=== PATIENT | female | born 1950 | race Caucasian/White ===

== ENCOUNTER 2019-10-14 08:33 | Outpatient (CLI) | payer OTHER, SELFPAY ==
--- NOTE | ~2019-10-14 | US_ITS ---
US abdomen complete DATE: 10/14/2019 09:50 INDICATION: Thrombocytopenia TECHNIQUE: Real-time imaging of the abdomen, Doppler analysis COMPARISON: None FINDINGS: No hepatic space-occupying mass lesion is evident. Normal hepatopedal portal venous flow. N o gallstones, gallbladder wall thickening or abnormal pericholecystic fluid collection. The common bile duct measures 2.7 mm, normal. The kidneys measure approximately 10 cm length. No renal mass lesion or hydronephrosis. The spleen measures approximately 10 cm maximal length, within normal range. No splenic mass lesion i s evident. The abdominal aorta is of normal caliber. The inferior vena cava is patent. IMPRESSION: No significant abnormality; no evidence of splenomegaly Reviewed, dictated and finalized at Location [facility]. Reviewed, dictated and finalized at location B.
== END 2019-10-14 08:34 | disposition home or self-care (01) ==
PROVIDERS: PCP Internal Medicine; Visit Provider Internal Medicine Hematology & Oncology
DX: D69.59 Other secondary thrombocytopenia (principal)
CPT/HCPCS: 76700

== ENCOUNTER 2019-10-14 09:55 | Outpatient (CLI) | payer OTHER, SELFPAY ==
[2019-10-14 10:15] LABS: Basophils Absolute Auto 0.1 K/mm3 (0.0-0.1); Basophils Percent Auto 0.8 % (0.2-1.2); Eosinophils Absolute Auto 0.2 K/mm3 (0-0.3); Eosinophils Percent Auto 2.9 % (0-4.4); Hematocrit 37.7 % (37.0-47.0); Hemoglobin 12.2 g/dL (12.0-15.0); Immature Granulocyte Absolute 0.01 K/mm3 (0.00-0.031); Immature Granulocyte Percent A 0.2 % (0-0.5); Lymphocytes Absolute Auto 1.11 K/mm3 (0.9-3.2); Lymphocytes Percent Auto 17.8 % (18.3-44.2); Mean Corpuscular HGB Conc 32.4 g/dl (32-36); Mean Corpuscular Hemoglobin 29.8 pg (26-34); Mean Corpuscular Volume 92.2 fl (80-100); Monocytes Absolute Auto 0.5 K/mm3 (0.1-0.6); Neutrophils Absolute Auto 4.4 K/mm3 (1.3-6.7); Neutrophils Percent Auto 70.3 % (45.5-73.1); Red Blood Count 4.09 M/mm3 (4.2-5.4); White Blood Count 6.2 K/mm3 (4.5-10.0)
[2019-10-14 10:25] LABS: Platelet Count Result 178 k/mm3 (150-375)
[2019-10-14 11:17] LABS: Iron 93 ug/dL (37-170)
[2019-10-14 11:27] LABS: Percent Iron Saturation 29 % (20-50)
[2019-10-14 11:28] LABS: Alanine Aminotransferase 23 U/L (4-35); Albumin Level 4.3 g/dL (3.5-5.1); Alkaline Phosphatase 79 U/L (38-126); Aspartate Amino Transferase 28 U/L (14-36); Bilirubin,Total 0.5 mg/dL (0.2-1.3); Blood Urea Nitrogen 14 mg/dL (7-17); Calcium 9.1 mg/dL (8.4-10.2); Carbon Dioxide 27 mmol/L (22-30); Chloride 104 mmol/L (98-107); Estimated Glomerular Filt Rate > 60; Glucose 94 mg/dL (65-105); Lactate Dehydrogenase 484 U/L (313-618); Potassium 4.1 mmol/L (3.4-5.0); Sodium 140 mmol/L (137-145)
[2019-10-17 21:43] LABS: Platelet Antibody, Direct IgG POSITIVE (NEGATIVE)
== END 2019-10-14 09:56 | disposition home or self-care (01) ==
LOC: ANHLAB 09:57
PROVIDERS: PCP Internal Medicine; Visit Provider Internal Medicine Hematology & Oncology
DX: D69.59 Other secondary thrombocytopenia (principal)
CPT/HCPCS: 36415; 80053; 82607; 82728; 83540; 83550; 83615; 84443; 85025; 86023; 86038

== ENCOUNTER 2022-10-19 11:06 | Emergency (ER) | payer MEDICARE, SELFPAY ==
[2022-10-19 11:37] VITALS: BP 122/71; PULSE 81; RESP 20; TEMP 36.4; O2SAT 100
--- NOTE | 2022-10-19 11:49 | ED.URI ---
HPI - URI/Sore Throat General Chief Complaint: Upper Respiratory Infection Stated Complaint: cough,nasal drainage Time Seen by Provider: 10/19/22 11:49 Source: patient Mode of arrival: ambulatory Limitations: no limitations History of Present Illness HPI Narrative: Patient is a 71-year-old female that presents with 10 days of productive cough. States within the 10 days she has also had sore throat in congestion, both have since resolved. Patient is using 2 pillows to help with shortness of breath at night. Patient has been using [id number] medications with no relief. Denies any ear pain, fever, chills. Related Data Home Medications Medication Instructions Recorded Confirmed albuterol sulfate 90 mcg/actuation 2 puff inhalation QID PRN 10/19/22 10/19/22 aerosol inhaler Shortness Of Breath Allergies Allergy/AdvReac Type Severity Reaction Status Date / Time prochlorperazine Allergy Unknown Verified 10/19/22 11:39 [From Compazine] titanium Allergy Unknown Verified 10/19/22 11:45 All Acid Reflux Medications Allergy Severe Swelling Uncoded 10/19/22 11:38 Review of Systems Review of Systems: All systems reviewed & are unremarkable except as noted in HPI and below Constitutional: Constitutional: Denies body ache(s), Denies fever(s), Denies headache(s), Denies malaise and Denies weakness Eyes: Eyes: Denies loss of vision ENT: Denies otalgia, Denies headache(s), Denies nasal congestion, Denies sinus pain and Denies sore throat Cardiovascular: Cardiovascular: Denies chest pain, Denies irregular heart rhythm and Denies dyspnea Respiratory: Respiratory: Reports cough and Denies dyspnea Gastrointestinal: Gastrointestinal: Denies abdominal pain, Denies melena, Denies hematochezia, Denies diarrhea, Denies nausea and Denies vomiting Musculoskeletal: Musculoskeletal: Denies back pain, Denies myalgias and Denies arthralgias Integumentary/Breasts: Skin/Breast: Denies pruritus and Denies rash Neurologic: Denies headache(s), Denies loss of vision and Denies weakness Psychiatric: Psychiatric: Reports no additional psychiatric complaints PMFSH Comments At time of signature, agree with nursing past medical, surgical, social and family history. There is no relevant family history pertinent to the presenting complaint. Exam Const: General: cooperative, healthy appearing, comfortable, no acute distress and well nourished Nutritional Appearance: well nourished Orientation/consciousness: patient oriented x3 Limitations: no limitations HENMT: Head: normal to inspection, normocephalic and atraumatic Ears: hearing grossly normal bilaterally, external ears normal and TM's normal bilaterally Face/Nose/Sinus: Normal external nose present, normal facial exam, sinuses nontender and face symmetric Face and sinus: normal facial exam, sinuses nontender and face symmetric Mouth: Yes Normal oral and palatal mucosa present, Yes lip normal and Yes moist mucous membranes Teeth and gingiva: dentition normal Throat: posterior oropharynx normal, tonsils normal and uvula midline Eyes: General: appearance normal, both eyes and all related structures Alignment and Position: alignment normal and position normal Periorbital: periorbital findings normal Eyelids: eyelids normal Pupils: Equal, round and reactive pupils present Neck: Neck: normal visual inspection, full ROM and supple Chest: Chest palpation & inspection: normal inspection of the chest and normal palpation of entire chest wall Resp: Effort & Inspection: normal respiratory effort and able to speak in complete sentences Auscultation: clear to auscultation bilaterally, no crackles, no rales, no rhonchi and no wheezes Cardio: Rate: regular rate Rhythm: regular rhythm Heart sounds: S1 normal heart sound present and S2 normal heart sound present GI: Inspection: normal to inspection Skin: General skin exam: normal color and no rashes or lesions noted Neuro: General: patie
== END 2022-10-19 12:13 | disposition home or self-care (01) ==
PROVIDERS: Emergency Provider Nurse Practitioner Family; PCP Internal Medicine
DX: R05.9 Cough, unspecified (principal); J45.909 Unspecified asthma, uncomplicated
CPT/HCPCS: 99213; G0463

== ENCOUNTER 2024-05-02 19:04 | Emergency (ER) | payer MEDICARE, SELFPAY ==
[2024-05-02 19:07] VITALS: BP 147/75; PULSE 82; RESP 16; TEMP 36.5; O2SAT 97
[2024-05-02 20:22] VITALS: BP 133/68; PULSE 66; RESP 20; TEMP 36.6; O2SAT 97
--- NOTE | 2024-05-02 20:30 | ED.ANIMALBIT ---
HPI - Animal Bite General Chief Complaint: Animal Bite Stated Complaint: racoon bit L foot yesterday morning Time Seen by Provider: 05/02/24 19:48 History of Present Illness HPI narrative: Patient is a 73-year-old female who presents to the ER after being bit by a raccoon. She reports she likes to feed a stray cats from her backyard. Patient was sitting out who for them and 3 raccoon's came to her. She tried to issue the raccoons away and kicked her left lower extremity a them. One of the raccoon's was aggressive and bit patient in the left lower extremity. Patient has a baseball sized bruise on her left extremity with a noticeable puncture wound that has scabbed over in the middle of the bruise. She denies pain at this but endorses itching. Patient reports she went to urgent care and they put her on oral antibiotics, but they advised her to come to the ER for rabies vaccination. She denies any other pertinent medical history related to this visit. Patient denies shortness of breath, fevers, other signs of illness, chest pain. Related Data Home Medications Medication Instructions Recorded Confirmed albuterol sulfate 90 mcg/actuation 2 puff inhalation QID PRN 10/19/22 10/19/22 aerosol inhaler Shortness Of Breath Allergies Allergy/AdvReac Type Severity Reaction Status Date / Time prochlorperazine Allergy Unknown Verified 05/02/24 19:05 [From Compazine] titanium Allergy Unknown Verified 05/02/24 19:05 All Acid Reflux Medications Allergy Severe Swelling Uncoded 05/02/24 19:05 Review of Systems Review of Systems: All systems reviewed & are unremarkable except as noted in HPI and below Exam Narrative: GENERAL: Well appearing, well-nourished, non-toxic, in no acute distress. HEAD: Normocephalic, atraumatic. NECK: Supple. No adenopathy, no masses. RESPIRATORY: Airway patent, respirations nonlabored. Clear to auscultation bilaterally, no rales, rhonchi, wheezing. CARDIOVASCULAR: Regular rate and rhythm without murmurs, rubs, or gallops. Peripheral pulses 2+ and equal bilaterally. ABDOMINAL: Soft, nontender, nondistended, no hepatosplenomegaly. Normoactive BS. MUSCULOSKELETAL: Moves all extremities. Strength/ROM intact without gross deformities. SKIN: Warm, dry, normal color. No rashes. Patient has a baseball sized bruise on her left extremity with a noticeable puncture wound that has scabbed over in the middle of the bruise. NEURO: A&O X3. Speech clear. Cranial nerves II-XII grossly intact. Steady gait. No ataxic movements. PSYCHIATRIC: Appropriate mood and affect. Normal interaction. Course Vital Signs Vital signs: Vital Signs Temperature 36.5 C 05/02/24 19:07 Pulse Rate 82 05/02/24 19:07 Respiratory Rate 16 05/02/24 19:07 Blood Pressure 147/75 H 05/02/24 19:07 Pulse Oximetry 97 05/02/24 19:07 Oxygen Delivery Room Air 05/02/24 19:07 Temperature 36.6 C 05/02/24 20:22 Pulse Rate 66 05/02/24 20:22 Respiratory Rate 20 05/02/24 20:22 Blood Pressure 133/68 05/02/24 20:22 Pulse Oximetry 97 05/02/24 20:22 Oxygen Delivery Room Air 05/02/24 19:07 MDM - Animal Bite MDM Narrative Medical decision making narrative: Patient is a 73-year-old female who presents to the ER after being bit by a raccoon. She reports she likes to feed a stray cats from her backyard. Patient was sitting out who for them and 3 raccoon's came to her. She tried to issue the raccoons away and kicked her left lower extremity a them. One of the raccoon's was aggressive and bit patient in the left lower extremity. She denies pain at this but endorses itching. Patient reports she went to urgent care and they put her on oral antibiotics, but they advised her to come to the ER for rabies vaccination. She denies any other pertinent medical history related to this visit. Patient denies shortness of breath, fevers, other signs of illness, chest pain. Upon physical examination, patient rabia
[2024-05-02] MEDS: RABIES VACCINE (RABAVERT) 2.5 UNITS VIAL IM (21:17)
[2024-05-02] MEDS: RABIES IMMUNE GLOBULIN/PF 1,500 UNITS/5 ML VIAL 1360 UNITS IM (21:26)
== END 2024-05-02 22:38 | disposition home or self-care (01) ==
PROVIDERS: Emergency Provider Registered Nurse; PCP Internal Medicine
DX: S81.852A Open bite, left lower leg, initial encounter (principal); Z23 Encounter for immunization; Z20.3 Contact with and (suspected) exposure to rabies; W55.51XA Bitten by raccoon, initial encounter
CPT/HCPCS: 90471; 90675; 96372; 99283; 90375

== ENCOUNTER 2024-05-16 09:53 | Outpatient (RCR) | payer MEDICARE, SELFPAY ==
--- NOTE | 2024-05-09 10:40 | PC.NURSE ---
C/O ITCHING AT SITE OF INJECTION X 1 DAY AFTER LAST INJECTION. STATES HAS HAD FATIGUE. DENIES NAUSEA AND FEVER. LEG WOUND HEALING WITHOUT SIGNS OF INFECTION. SCAB. ECCHYMOSIS RESOLVING. TO RETURN 1 WEEK FROM TODAY AT 1000 FOR LAST INJECTION. VOICES UNDERSTANDING.
--- NOTE | 2024-05-16 10:21 | PC.NURSE ---
AMBULATORY TO DRAW STATION FOR 4TH RABIES VACCINE. STATES IS FEELING WELL. DENIES FATIGUE, NAUSEA AND BODY ACHES. SITE OF BITE LEFT LOWER LEG / ANKLE HEALING WITHOUT SIGNS OF INFECTION. BRUISING RESOLVING. DISCHARGED AMBULATORY WITH STEADY GAIT.
== END 2024-08-03 23:59 | disposition home or self-care (01) ==
LOC: ANHVASCINF 09:53
PROVIDERS: PCP Internal Medicine; Visit Provider Emergency Medicine
DX: Z29.14 Encounter for prophylactic rabies immune globulin (principal); Z20.3 Contact with and (suspected) exposure to rabies
CPT/HCPCS: 90471; 90675

== ENCOUNTER 2024-09-08 14:01 | Outpatient (CLI) | payer MEDICARE, SELFPAY ==
[2024-09-08 14:18] LABS: Basophils Absolute Auto 0.1 K/mm3 (0.0-0.1); Basophils Percent Auto 1.1 % (0.2-1.2); Eosinophils Absolute Auto 0.2 K/mm3 (0-0.3); Eosinophils Percent Auto 2.9 % (0-4.4); Hemoglobin 12.9 g/dL (12.0-15.0); Immature Granulocyte Absolute 0.03 K/mm3 (0.00-0.031); Immature Granulocyte Percent A 0.4 % (0-0.5); Lymphocytes Absolute Auto 1.59 K/mm3 (0.9-3.2); Lymphocytes Percent Auto 21.9 % (18.3-44.2); Mean Corpuscular HGB Conc 32.3 g/dl (32-36); Mean Corpuscular Hemoglobin 29.2 pg (26-34); Mean Corpuscular Volume 90.5 fl (80-100); Mean Platelet Volume 9.6 fl (7.4-10.4); Monocytes Absolute Auto 0.7 K/mm3 (0.1-0.6); Monocytes Percent Auto 9.2 % (2.6-8.5); Neutrophils Absolute Auto 4.7 K/mm3 (1.3-6.7); Neutrophils Percent Auto 64.5 % (45.5-73.1); Platelet Count Result 214 k/mm3 (150-375); Red Blood Count 4.42 M/mm3 (4.2-5.4); Red Cell Distribution Width 12.8 % (11.5-14.5); White Blood Count 7.3 K/mm3 (4.5-10.0)
[2024-09-08 15:18] LABS: Iron 101 ug/dL (37-170)
[2024-09-08 15:21] LABS: Alanine Aminotransferase 18 U/L (6-35); Albumin Level 4.5 g/dL (3.5-5.1); Alkaline Phosphatase 94 U/L (38-126); Anion Gap 7 mmol/L (4-12); Aspartate Amino Transferase 23 U/L (14-36); Bilirubin,Total 0.7 mg/dL (0.2-1.3); Blood Urea Nitrogen 14 mg/dL (7-17); Calcium 9.2 mg/dL (8.4-10.2); Carbon Dioxide 27 mmol/L (22-30); Chloride 104 mmol/L (98-107); Estimated Glomerular Filt Rate > 60; Glucose 92 mg/dL (65-110); Sodium 138 mmol/L (137-145)
[2024-09-08 15:31] LABS: Percent Iron Saturation 31 % (20-50)
--- OUTSIDE RECORDS SUMMARY | 2024-09-08 16:15 | XMS_ITS | Clinical Summary ---
Author Organization [facility] Address [address] [place] [id number] Care Team Providers Care Bird Cage Assembler Name Role Phone Unavailable Primary Care Provider Unavailabl e Social History Tobacco Use Types Packs/Day Years Used Date Smoking Tobacco: Never Assessed Comments Unknown Sex and Gender Information Value Date Recorded Sex Assigned at Not on file Legal Sex Female 8:25 PM CDT Gender Identity Not on file Sexual Orientation Not on file Plan of Treatment Health Maintenance Due Date Last Done Comments Colorectal Cancer Screening Colonoscopy (10 Years) 1948 Hepatitis C 1966 DTaP, Tdap and Td Vaccines ( 1 - Tdap) 12/13/1967 Zoster Vaccines (1 of 2) 1998 Dexa Scan (General) 2013 Pneumococcal Vaccine: 65+ Ye ars (1 of 1 - PCV) 2013 RSV Immunization or 60+ Years (1 - 1-dose 75+ series) 12/13/2023 COVID-19 Vaccine ( - 2023-2 5 season) 2024 Influenza Adult (#1) 2024 Meningococcal B Vaccine Aged Out No l onger eligible based on patient's age to complete this topic Meningococcal Vaccine Aged Out No tamar aidee eligible based on patient's age to complete this topic RSV Immunizations Under 20 Months Aged Out No longer eligible based on patient's age to complete this topic
--- OUTSIDE RECORDS SUMMARY | 2024-09-08 16:15 | XMS_ITS | Patient Health Summary ---
Author Organization [facility] Address [address] [place] [address] Care Team Providers Care Electrical Accessories Ii Assembler Name Role Phone Unavailable Primary Care Provider Unavailabl e Note from [facility] [place]note 2],non-owned Affiliates and Associated Physician Practices is amultiple site organization consisting of ambulatory clinics and hospital sitesin [place], [place], [place] and [place]. This disclosure is being madepursuant to the Care Everywhere program and may not contain all information available regarding this patient. Last updated 18.[facility] [employer] Allergies No known active allergies Medications * Be aware that medications may not be up to date on this document. Alwaysverify current medications with the patient. * Montelukast Sodium (SINGULAIR PO) Active Problems No known active problems Social History Tobacco Use Types Packs/Day Years Used Date Smoking Tobacco: Never Smokeless Tobacco: Never Alcohol Use Standard Drinks/Week Comments Never 0 (1 standard drink = 0.6 oz pur e alcohol) AUDIT-C Answer Date Recorded Q1: How often do you have a drink containing alc ohol? Never 06/05/2020 Average Number of Drinks Not on file 020 Frequency of Binge Drinking Not on file 05/17 Sex and Gender Information Value Date Recorded Sex Assigned at Not on file Gender Identity Not on file Sexual Orientation Not on file Last Filed Vital Signs Vital Sign Reading Time Taken Comments Blood Pressure 122/68 06/05/2020 11:47 AM HATCHERY MAN Pulse 78 06/05/2020 11:47 AM HATCHERY MAN Temperature 36.8 C (98.3 F) 06/05/2020 11:47 AM HATCHERY MAN Respiratory Rate 16 06/05/2020 11:47 AM HATCHERY MAN Oxygen Saturation 95% 06/05/2020 11:47 AM HATCHERY MAN Inhaled Oxygen Concentration - - Weight 59 kg (130 lb) 06/05/2020 11:47 AM HATCHERY MAN Height 157.5 cm (5' 2 ) 06/05/2020 11:47 AM HATCHERY MAN Body Mass Index 23.78 06/05/2020 11:47 AM HATCHERY MAN Procedures * INFLUENZA A+B - POINT OF CARE (AMB)(Performed 06/05/2020) Performed for Influenza B * STREP A SCREEN - POINT OF CARE (AMB) STL(Performed 06/05/2020) Performed for Influenza B * COVID-19 SARS-COV-2 PCR QUAL ([facility])(Performed 06/05/2020) Performed for Influenza B Results * (ABNORMAL) INFLUENZA A+B - POINT OF CARE (AMB) (06/05/2020 12:28 PM HATCHERY MAN) Influenza A Antigen Rapid Negative(A) Negative [facility] Influenza B Antigen Rapid Positive(A) Negative [facility] Influenza Internal Control present NEGATIVE - POSITIVE [facility] Influenza Lot Number [id number] [facility] Influenza Expiration Date [facility] Other NASOPHARYNGEAL SWAB / Unknown 06/05/2020 12:28 PM HATCHERY MAN Joseph Carrasco GEOSCIENCE LABORATORY TECHNICIAN-TOPOGRAPHICAL ENGINEER LAB - POINT OF CARE ORDERABLES Performing Organization Address [facility] Co de Phone Number [facility] [address] [phone] * STREP A SCREEN - POINT OF CARE (AMB) STL (06/05/2020 12:27 PM HATCHERY MAN) Pathologist [facility] Strep A Rapid POCT Negative Negative [facility] Strep A Internal Control Present [facility] Lot # [id number] [facility] Expiration Date [id number] [facility] Throat ENTIRE THROAT (SURFACE REGION OF NECK) / Unknown 06/05/2020 12:27 PM HATCHERY MAN Joseph Carrasco GEOSCIENCE LABORATORY TECHNICIAN-TOPOGRAPHICAL ENGINEER LAB - POINT OF CARE ORDERABLES [facility] [address] [phone] * (ABNORMAL) COVID-19 SARS-COV-2 PCR QUAL ([facility]) (06/05/2020 12:12 PM HATCHERY MAN) SARS-CoV-2 GEENA Detected( A) Not Detected [facility] ACCOUNT BILL Comment: This nucleic acid amplification test was developed and its performance characteristics determined by [facility]. Nucleic acid amplification tests include PCR and TMA. This test has not been FDA cleared or approved. This test has been authorized by FDA under an Emergency Use Authorization (EUA). This test is only authorized for the duration of time the declaration that circumstances exist justifying the authorization of the emergency use of in vitro diagnostic tests for detection of SARS-CoV-2 virus and/or diagnosis of COVID-19 infection under section 564(b)(1) of the Act, 21 U.S.C. 360bbb-3(b) (1), unless the authorization is terminated or revoked sooner. When diagnostic testing is negative, the possibility of a false negative result should be considered in the context of a patient's recent exposures and the presence of clinical signs and symptoms consistent with COVID-19. An individual without symptoms of COVID-19 and who is not shedding SARS-CoV-2 virus would expect to have a negative (not detected) result in this assay. Microbiology SPECIMEN FROM NASOPHARYNGEAL STRUCTURE / Unknown 06/05/2020 12:12 PM HATCHERY MAN 06/05/2020 Narrative Resulting Agency Comment Lab Testing performed at: [facility] [address] [facility] [place] [id number] Joseph Carrasco GEOSCIENCE LABORATORY TECHNICIAN-TOPOGRAPHICAL ENGINEER LAB - MICRO BIOLOGY ORDERABLES [facility] ACCOUNT BILL [address] [place] [address]
--- OUTSIDE RECORDS SUMMARY | 2024-09-08 16:15 | XMS_ITS | Clinical Summary ---
Author Organization [facility] Address [address] [place] [place] [address] Care Team Providers Care Chipper Feeder Name Role Phone Unavailable Primary Care Provider Unavailabl e Source Comments [facility],non-owned Affiliates and Associated Physician Practices is amultiple site organization consisting of ambulatory clinics and hospital sitesin [place], [place], [place] and [place]. This disclosure is being madepursuant to the Care Everywhere program and may not contain all information available regarding this patient. Last updated 18.[facility] [employer] Allergies No known active allergies Medications * Be aware that medications may not be up to date on this document. Alwaysverify current medications with the patient. Medication Sig Dispensed Refills Start Date End Date Status Montelukast Sodium (SINGULAIR PO) Active Active Problems No known active problems Social [...] Comments Blood Pressure 122/68 06/05/2020 11:47 AM SUCTION OPERATOR Pulse 78 06/05/2020 11:47 AM SUCTION OPERATOR Temperature 36.8 C (98.3 F) 06/05/2020 11:47 AM SUCTION OPERATOR Respiratory Rate 16 06/05/2020 11:47 AM SUCTION OPERATOR Oxygen Saturation 95% 06/05/2020 11:47 AM SUCTION OPERATOR Inhaled Oxygen Concentration - - Weight 59 kg (130 lb) 06/05/2020 11:47 AM SUCTION OPERATOR Height 157.5 cm (5' 2 ) 06/05/2020 11:47 AM SUCTION OPERATOR Body Mass Index 23.78 06/05/2020 11:47 AM SUCTION OPERATOR Plan of Treatment Health Maintenance Due Date Last Done Comments BONE DENSITY TESTING 1950 COLOGUARD (AGES 45-75) - COL ON CA SCREENING 1948 COLON MONITORING 1948 COLONOSCOPY - COLON CA SCREENING 1948 CT COLONOGRAPHY - COLON CA SCREENING 1950 Colorectal Cancer Screening 1948 FIT - COLON CA SCREENING 1948 FLEX SIG - COLON CA SCREENING 1948 LIPID TESTING 1948 MAMMOGRAM 1950 HEPATITIS C SCREENING 12/08/1966 DTAP/TDAP/TD VACCINES (1 - Tdap) 12/13/1967 PNEUMOCOCCAL VACCINE 50+ (1 of 1 - PCV) 1998 ZOSTER VACCINE (1 of 2) 1998 Respiratory Syncytial Virus (RSV) Vaccine Pt: or over 60 yrs (1 - 1-dose 75+ series) 12/13/2023 COVID-19 VACCINE ( - 2023-2 5 season) 2024 INFLUENZA VACCINE (#1) 2024 04/15/2018 DEPRESSION SCREENING 07/16/2024 HEPATITIS B VACCINE Aged Out No longe r eligible based on patient's age to complete this topic HIB VACCINE Aged Out No longer eligi ble based on patient's age to complete this topic HPV VACCINE Aged Out No longer eligi ble based on patient's age to complete this topic MENINGOCOCCAL (Group B) VACCINE Aged Out No longer eligible based on patient's age to complete this topic MENINGOCOCCAL VACCINE Aged Out No tamar aidee eligible based on patient's age to complete this topic
--- OUTSIDE RECORDS SUMMARY | 2024-09-08 16:15 | XMS_ITS | Encounter Summary ---
Author Organization [facility] ([facility]) RODERICK Zimmer [facility] Address [address] [place] [address] Care Team Providers Care Jacquard Card Lacer Name Role Phone Zuleika Denney MD Primary Care Provider Reason for Referral * Radiology Services (Routine) - Open Specialty Diagnoses / Procedures Referred By Contac t Referred To Contact Diagnoses Other secondary thrombocytopenia Procedures US ABDOMEN COMPLETE Miki Dover MD [address] [place] [phone] Phone: tel: fax: [place] [phone] Referral ID Status Reason Start Date Expiration Date V isits Requested Visits Authorized [id number] Open STL CTS 09/08/2024 10/09/2025 1 1 ENT CURATOR Reason for Visit * Reason Comments Establish Care Encounter Details Date Type Department Care Team (Late st Contact Info) Description 09/08/2024 1:30 PM CONTENT CURATOR Office Visit [facility] Oncology and Hematology [facility] [address] [place], [place] [address]ray[place] [facility] [address] [place] [address] Miki Dover MD [address] [place] [address] Chronic anemia (Primary Dx); Other secondary thrombocytopenia Social History Tobacco Use Types Packs/Day Years Used Date Smoking Tobacco: Never Smokeless Tobacco: Never Tobacco Cessation:Counseling Given: Not Answered Alcohol Use Standard Drinks/Week Comments Never 0 (1 standard drink = 0.6 oz pur e alcohol) Comments No Sex and Gender Information Value Date Recorded Sex Assigned at Not on file Legal Sex Female 5:16 AM CONTENT CURATOR Gender Identity Not on file Sexual Orientation Not on file documented as of this encounter Last Filed Vital Signs Vital Sign Reading Time Taken Comments Blood Pressure 122/79 09/08/2024 1:24 PM CONTENT CURATOR Pulse 79 09/08/2024 1:24 PM CONTENT CURATOR Temperature 36.3 C (97.3 F) 09/08/2024 1:24 PM CONTENT CURATOR Respiratory Rate 15 09/08/2024 1:24 PM CONTENT CURATOR Oxygen Saturation 97% 09/08/2024 1:24 PM CONTENT CURATOR Inhaled Oxygen Concentration - - Weight 65.6 kg (144 lb 9.6 oz) 09/08/2024 1:24 P M CONTENT CURATOR Height 157.5 cm (5' 2 ) 09/08/2024 1:24 PM CONTENT CURATOR Body Mass Index 26.45 09/08/2024 1:24 PM CONTENT CURATOR documented in this encounter Progress Notes * Miki Dover MD - 09/08/2024 1:23 PM CST Hematology-oncology consult Note Requesting Physician Zuleika Denney MD Primary Care Physician Zuleika Denney MD Problem list Patient Active Problem List Diagnosis Code 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 Measurable Disease ? Reason for Visit Eve Yost is a 73 y.o. female who was referred for consultation for thrombocytopenia. History of present illness This is a pleasant 73-year-old female who has been in [facility] except history of asthma referred to me for thrombocytopenia. According to patient she was told to have low platelet countabout 2 years ago. She denies any bleeding and bruising. She denies any liver disease. She denies any history of heavy alcohol consumption. She has gained 20 pound weight in 3 years. Her labs done onMay 2024 showed platelet count of 123,000. According to the patient she was not sick at that time. Denies any other new complaints. Past Medical History Past Medical History: Diagnosis Date Asthma Surgical History Past Surgical History: Procedure Laterality Date XR WRIST Right 2015 Medications Current Outpatient Medications Medication Sig Dispense Refill montelukast (Singulair) 10 mg tablet every 24 hours. fluticasone propionate (FLONASE) 50 mcg/spray [place], Suspension nasal inhaler fluticasone propionate 50 mcg/actuation nasal spray,suspension SHAKE LQ AND U 1 SPR IEN QD albuterol HFA 90 mcg inhaler ProAir HFA 90 mcg/actuation aerosol inhaler calcium citrate-vitamin d3 (CITRACAL D) 315-200 mg-unit Tablet Take by mouth daily. No current facility-administered medications for this visit. Allergies Allergies Allergen Reactions Esomeprazole Rash Omeprazole Rash Reaction: Rash, , Reaction: Rash, Prochlorperazine Rash Titanium Swelling Immunizations: There is no immunization history on file for this patient. Family History Family History Problem Relation Name Age of Onset Heart Disease Father Diabetes Father Social History Social History Tobacco Use Smoking status: Never Smokeless tobacco: Never Substance Use Topics Alcohol use: Never Review of Systems Constitutional: Patient did not mention fever; no night sweats; no anorexia; no weight loss; no fatique NEENT: Patient did not mention headache; no change in vision; no change in hearing; no sore throat;no dysphagia Respiratory: Patient did not mention shortness of breath; no pleuritic chest pain; no cough; no hemoptysis Cardiac: Patient did not mention cardiac-like chest pain; no palpitations; no orthopnea; no PND; noDOE Breasts: Patient did not mention tenderness; no masses GI: Patient did not mention abdominal pain; no nausea; no vomiting; no diarrhea; no hematochezia; no melena : Patient did not mention dysuria; no frequency; no hesitancy; no hematuria AERIAL PHOTOGRAMMETRIST: Musculosketetal: Patient did not mention bone pain; no arthralgia; no joint swelling; no myalgia; Skin: Patient did not mention pruritis; no rash; no petechiae; no ecchymoses Endocrine: Patient did not mention polydipsia; no polyuria; no unusual weight gain Neuro: Patient did not mention headache; no change in vision; no sensory changes; no muscle weakness; no confusion; no seizures Psych: Patient did not mention anxiety; no depression; Physical Exam Vitals: As per nursing note Constitutional: Well developed, well nourished, no acute distress, non-toxic appearance Teeth and gum. No signs of infection or swelling. Eyes: PERRL, conjunctiva normal HEENT: Atraumatic, external ears normal, nose normal, oropharynx moist, no pharyngeal exudates. no sinus tenderness Neck- normal range of motion, no tenderness, supple Respiratory: No respiratory distress, normal breath sounds, no rales, no wheezing Cardiovascular: Normal rate, normal rhythm, no murmurs, no gallops, no rubs GI: Soft, nondistended, normal bowel sounds, nontender, no splenomegaly, no hepatomegaly, no mass, no rebound, no guarding : No costovertebral angle tenderness Musculoskeletal: No edema, no tenderness, no deformities. Back- no tenderness Integument: Well hydrated, no rash, Digits and nails inspection normal Lymphatic: No lymphadenopathy noted Neurologic: Alert & oriented x 3, CN 2-12 normal, normal motor function, normal sensory function, no focal deficits noted Psychiatric: Speech and behavior appropriate ? labs Labs from June 10, 2024 showed WBC 5.8 hemoglobin 12.4 platelet 123,000 Pathology ? Imaging & Other Studies Performance Status? Assessment / Plan: ? Thrombocytopenia. Patient is a pleasant 73-year-old female who has been in good health except history of asthma referred to me for thrombocytopenia. Her labs done on May 2024 while shewas in good health with no acute illness showed platelet count of 123,000. According to the patient she was told to have low platelets 2 years ago. She denies any bleeding and bruising.I have discussed the differential diagnosis of thrombocytopenia with the patient that includes nutritional deficiency like vitamin B-12 and folic acid deficiency and iron deficiency. Other possibilities include drug induced thrombocytopenia, autoimmune thrombocytopenia, bone marrow disorders like myelodysplasia and splenic sequestration with possible liver disease. I will order the workup that would include abdominal ultrasound, vitamin B12 and folic acid levels and iron studies. I will repeat CBC with differential and CMP. I will also order platelet antibodies for ITP. I answered all the questions to patient's satisfaction. Asthma. Patient is on Flonase inhaler and Singulair. Thank you very much for allowing me to participate in Eve Yost's evaluation and management. Please feel free to contact if I can be of any further assistance in your patient???s care requiring hematology or oncology evaluation. Sincerely, ? ? Miki Dover M.D. cell TOBACCO COUNSELING She is not a tobacco/nicotine user. Miki Dover MD ,09/08/2024 2:01 PM ? Total time spent 60 minutes, two third of the total time spent counseling patient [id number]. CC:?Zuleika Denney MD ENT CURATOR documented in this encounter Plan of Treatment Upcoming Encounters Date Type Department Care Team (Late st Contact Info) Description 09/30/2024 1:00 PM CDT Office Visit [facility] Oncology and Hematology - [place] [address] [facility] [address] [place] [address] Miki Dover MD [address] [facility] [address] [place] [address] Scheduled Orders Name Type Priority Associated Diagnoses Orde r Schedule CBC WITH DIFFERENTIAL Lab Stat Chronic anemia Expected: 09/08/2024, Expires: 09/08/2025 COMPREHENSIVE METABOLIC PANEL Lab Stat Chronic anemia Expected: 09/08/2024, Expires: 09/08/2025 FERRITIN Lab Routine Chronic anemia Expected: 09/08/2024, Expires: 09/08/2025 IRON, TIBC, AND PERCENT SATURATION Lab Routine Chronic anemia Expected: 09/08/2024, Expires: 09/08/2025 VITAMIN B12 AND FOLATE Lab Routine Chronic anemia Expected: 09/08/2024, Expires: 09/08/2025 METHYLMALONIC ACID Lab Routine Chronic anemia Expected: 09/08/2024, Expires: 09/08/2025 TRANSFERRIN RECEPTOR TFR SOLUBLE Lab Routine Chronic anemia Expected: 09/08/2024, Expires: 09/08/2025 US ABDOMEN COMPLETE Imaging Routine Other secondary thrombocytopenia 1 Occurrences starting 09/08/2024 until 09/08/2025 MISCELLANEOUS LAB TEST Lab Routine Other secondary thrombocytopenia Expected: 09/08/2024, Expires: 09/08/2025 documented as of this encounter Visit Diagnoses Diagnosis Chronic anemia- Primary Anemia, unspecified Other secondary thrombocytopenia documented in this encounter Care Teams Jacquard Card Lacer Relationship Specialty Start Date End Date Zuleika Denney MD PCP - General Internal Medicine 09/01/19 documented as of this encounter
--- OUTSIDE RECORDS SUMMARY | 2024-09-08 16:15 | XMS_ITS | Encounter Summary ---
Author Organization [facility] Address 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 Gender Identity Not on file Sexual Orientation Not on file documented as of this encounter Plan of Treatment Upcoming Encounters Date Type Department Care Team (Late st Contact Info) Description 09/30/2024 1:00 PM CDT Office Visit [facility] Oncology and Hematology - [place] [address] [facility] [address] [place] [address] [place] [address] [place] [address] [address] [place] [address] documented as of this encounter Visit Diagnoses Diagnosis Abnormal mammogram, unspecified- Primary documented in this encounter Care Teams Report Manager Relationship Specialty Start Date End Date Zuleika Denney MD PCP - General Internal Medicine 09/01/19 documented as of this encounter
--- OUTSIDE RECORDS SUMMARY | 2024-09-08 16:15 | XMS_ITS | Clinical Summary ---
Author Organization [facility] Tanja jessica Roldan Address [address] [place] [address] Care Team Providers Care General Lot Attendant Name Role Phone Zuleika Denney MD Primary Care Provider Allergies Active Allergy Reactions Criticality Noted Date Comments Esomeprazole Rash Low 09/08/2024 Omeprazole Rash Low 09/08/2024 Reaction: Rash, , Reaction: Rash, Prochlorperazine Rash Low 10/07/2019 Titanium Swelling Low 10/07/2019 Medications montelukast (Singulair) 10 mg tablet every 24 hours. Acti ve fluticasone propionate (FLONASE) 50 mcg/spray [place], Suspension nasal inhaler fluticasone propionate 50 mcg/actuation nasal spray,suspension SHAKE LQ AND U 1 SPR IEN QD Active albuterol HFA 90 mcg inhaler ProAir HFA 90 mcg/actuation aerosol inhaler Active calcium citrate-vitamin d3 (CITRACAL D) 315-200 mg-unit Tablet Take by mouth daily. 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 Encounters Date Type Department Care Team Description 09/08/2024 1:30 PM RADIOLOGY TECH Office Visit [facility] Oncology and Hematology - [place] [address] [place] [address] Miki Dover MD Chronic anemia (Primary Dx); Other secondary thrombocytopenia from Last 3 Months Family History Medical History Relation Name Comments Diabetes Father Heart Disease Father Relation Name Status Comments Father Mother Sister 1 Alive Sister 2 Alive Social History Tobacco Use Types Packs/Day Years Used Date Smoking Tobacco: Never Smokeless Tobacco: Never Tobacco Cessation:Counseling Given: Not Answered Alcohol Use Standard Drinks/Week Comments Never 0 (1 standard drink = 0.6 oz pur e alcohol) Comments No Sex and Gender Information Value Date Recorded Sex Assigned at Not on file Legal Sex Female 5:16 AM RADIOLOGY TECH Gender Identity Not on file Sexual Orientation Not on file Last Filed Vital Signs Vital Sign Reading Time Taken Comments Blood Pressure 122/79 09/08/2024 1:24 PM RADIOLOGY TECH Pulse 79 09/08/2024 1:24 PM RADIOLOGY TECH Temperature 36.3 C (97.3 F) 09/08/2024 1:24 PM RADIOLOGY TECH Respiratory Rate 15 09/08/2024 1:24 PM RADIOLOGY TECH Oxygen Saturation 97% 09/08/2024 1:24 PM RADIOLOGY TECH Inhaled Oxygen Concentration - - Weight 65.6 kg (144 lb 9.6 oz) 09/08/2024 1:24 P M RADIOLOGY TECH Height 157.5 cm (5' 2 ) 09/08/2024 1:24 PM RADIOLOGY TECH Body Mass Index 26.45 09/08/2024 1:24 PM RADIOLOGY TECH Plan of Treatment Upcoming Encounters Date Type Department Care Team (Late st Contact Info) Description 09/30/2024 1:00 PM CDT Office Visit [facility] Oncology and Hematology [facility] [address] [facility] [address] [place] [address] Miki Dover MD [address] [facility] [address] [place] [address] Health Maintenance Due Date Last Done Comments DTAP/TDAP/TD VACCINES (1 - Tdap) 12/13/1967 Traditional Medicare (ACO) Annual Wellness Visit 12/12 COLORECTAL SCREENING 1993 Colorectal Cancer Screening 1993 FIT-DNA Q 3 years 1993 FIT/FOBT Q 1 year 1993 Flex Sig/CT Colonography Q 5 years 1993 ZOSTER VACCINE (1 of 2) 1998 PNEUMOCOCCAL VACCINE 65+ YEARS (2 of 2 - PCV) 09/22/19 11 09/21/2009 RSV VACCINE (60+ or ) (1 - 1-dose 75+ series) 12/13/2023 INFLUENZA VACCINE (#1) 2024 04/15/2018 OSTEOPOROSIS SCREENING Completed 09/05/2019 Insurance MEDICARE PART A AND B Care Teams General Lot Attendant Relationship Specialty Start Date End Date Zuleika Denney MD PCP - General Internal Medicine 09/01/19
--- OUTSIDE RECORDS SUMMARY | 2024-09-08 16:15 | XMS_ITS | Referral Summary ---
Author Organization [facility] Address [address] [facility] [place] [address] Care Team Providers Care Excavator Operator Name Role Phone Unavailable Primary Care Provider Unavailabl e Source Comments [facility],non-owned Affiliates and Associated Physician Practices is amultiple site organization consisting of ambulatory clinics and hospital sitesin [place], [place], [place] and [place]. This disclosure is being madepursuant to the Care Everywhere program and may not contain all information available regarding this patient. Last updated 18.[facility] [employer] Allergies No known active allergies Medications * [...] Comments Blood Pressure 122/68 06/05/2020 11:47 AM BATTERY REPAIRER Pulse 78 06/05/2020 11:47 AM BATTERY REPAIRER Temperature 36.8 C (98.3 F) 06/05/2020 11:47 AM BATTERY REPAIRER Respiratory Rate 16 06/05/2020 11:47 AM BATTERY REPAIRER Oxygen Saturation 95% 06/05/2020 11:47 AM BATTERY REPAIRER Inhaled Oxygen Concentration - - Weight 59 kg (130 lb) 06/05/2020 11:47 AM BATTERY REPAIRER Height 157.5 cm (5' 2 ) 06/05/2020 11:47 AM BATTERY REPAIRER Body Mass Index 23.78 06/05/2020 11:47 AM BATTERY REPAIRER Plan of Treatment Not on file
--- OUTSIDE RECORDS SUMMARY | 2024-09-08 16:15 | XMS_ITS | Encounter Summary ---
Author Organization [facility] Address 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 Gender Identity Not on file Sexual Orientation Not on file documented as of this encounter Plan of Treatment Upcoming Encounters Date Type Department Care Team (Late st Contact Info) Description 09/30/2024 1:00 PM CDT Office Visit [facility] Oncology and Hematology - [place] [address] [place] [address] [facility] [address] [place] [address] [place] [address] [place] [address] [address] [place] [address] documented as of this encounter Visit Diagnoses Diagnosis Other screening mammogram- Primary documented in this encounter Care Teams Medication Nurse Relationship Specialty Start Date End Date Zuleika Denney MD PCP - General Internal Medicine 09/01/19 documented as of this encounter
--- OUTSIDE RECORDS SUMMARY | 2024-09-08 16:15 | XMS_ITS | Data Portability ---
Author Organization [place] [facility] [place] [employer], Main Office Address [address] [place] [address] Assessment Encounter Date Assessment Date Assessment LastModified by Organization Details LastModified Time 09/05/2023 09/05/2023 01/29/2023: VIT D 23.0 LDL 106 HBG 11.9L 08/22/2023: TSH 4.860H, FT4 0.95 Alb 4.6H Chol 209,LDL 113 Not available 09/05/2023 10:39:14 01/23/2024 01/23/2024 01/29/2023: VIT D 23.0 LDL 106 HBG 11.9L 08/22/2023: TSH 4.860H, FT4 0.95 Alb 4.6H Chol 209,LDL 113 Not available 01/22/2024 17:01:59 05/28/2024 05/28/2024 01/29/2023: VIT D 23.0 LDL 106 HBG 11.9L 08/22/2023: TSH 4.860H, FT4 0.95 Alb 4.6H Chol 209,LDL 113 05/26/2024: VIT D 26.0 Chol 217, LDL 124 PLT 123 Not available 05/28/2024 18:35:43 08/25/2024 08/25/2024 01/29/2023: VIT D 23.0 LDL 106 HBG 11.9L 08/22/2023: TSH 4.860H, FT4 0.95 Alb 4.6H Chol 209,LDL 113 05/26/2024: VIT D 26.0 Chol 217, LDL 124 PLT 123 08/21/2024: Chol 215, LDL 139 TSH 6.840H, FT4 1.12 Not available 08/25/2024 12:09:45 Plan of Treatment Reminders Order Date Submit Date Provider Last Modified By Organization Details Last Modified Time Details Appointments Follow Up 15 2024 10:00A M Zuleika alvarez MD Not available Not available Not available Lab lipid panel, serum [address] (Lab), [address] [place], [address], 08/27/2024 10:00:01 CMP, serum or plasma [address] (Lab), [address] [place], [address], 08/27/2024 10:00:01 CBC w/ auto diff [address] (Lab), [address] [place], [address], 08/27/2024 10:00:01 TSH + free T4, serum [address] (Lab), [address] [place], [address], 08/27/2024 10:00:01 vitamin D, 25-hydrox y, total, serum [address] (Lab), [address] [place], [address], 08/27/2024 10:00:01 TSH, serum or plasma 2024 025 Not available 08/27/2024 10:00:02 T4, free, serum 2024 025 Not available 08/27/2024 10:00:02 lipid panel, serum 2023 024 SILVIO Not available 08/23/2024 09:39:02 CMP, serum or plasma 2023 024 SILVIO Not available 08/23/2024 09:39:00 CBC w/ auto diff 2023 024 SILVIO Not available 08/23/2024 09:38:59 TSH + free T4, serum 2023 024 SILVIO Not available 08/23/2024 09:38:58 vitamin D, 25-hydrox y, total, serum 2023 024 SILVIO Not available 08/23/2024 09:39:03 TSH, serum or plasma 2023 024 [email or web address] Not available 08/21/2024 11:52:23 T4, free, serum 2023 024 [email or web address] Not available 08/21/2024 11:52:40 vitamin D, 25-hydrox y, total, serum 2023 024 [email or web address] Not available 07/24/2024 08:54:00 TSH, serum or plasma 2023 024 SILVIO Not available 02/26/2024 16:46:01 T4, free, serum 2023 024 SILVIO Not available 02/26/2024 16:26:02 lipid panel, serum 2023 024 SILVIO Not available 02/26/2024 16:19:01 CMP, serum or plasma 2023 024 SILVIO Not available 02/26/2024 16:19:31 CBC w/ auto diff 2023 024 SILVIO Not available 02/26/2024 13:22:17 TSH + free T4, serum 2023 024 SILVIO Not available 02/27/2024 12:32:13 vitamin D, 25-hydrox y, total, serum 2023 024 Not available 03/03/2024 16:48:12 TSH, serum or plasma 2023 024 [email or web address] Not available 03/10/2024 10:12:48 T4, free, serum 2023 024 [email or web address] Not available 03/10/2024 10:12:48 lipid panel, serum 2023 024 [email or web address] Not available 03/03/2024 16:48:12 CMP, serum or plasma 2023 024 [email or web address] Not available 03/03/2024 16:48:12 CBC w/ auto diff 2023 024 [email or web address] Not available 03/03/2024 16:48:12 TSH + free T4, serum 2023 024 [email or web address] Not available 03/03/2024 16:48:13 Referral hematolog ist referral - Please call patient to schedule an appointme nt. Thank you. 2024 025 ushingMike [place], [address], [place], [address], 08/26/2024 17:27:03 hematolog ist referral 2023 024 SILVIO [place], [address], [place], [address], 09/08/2024 17:02:01 Procedures colonosco py screening (PROC) - Please call patient to schedule an appointme nt. Thank you. 2024 025 CHIARA Hallman MD, [facility] [address], [place], [address], 08/25/2024 18:10:35 colonosco py screening (PROC) - Please call patient to schedule. 2023 024 mary Hallman MD, [address], [place], [address], 08/19/2024 09:02:41 colonosco py screening (PROC) 2023 024 [email or web address] Not available 07/24/2024 08:53:51 colonosco py screening (PROC) 2023 024 SILVIO Not available 08/30/2024 04:02:22 Surgeries None recorded. Imaging DEXA, axial skeleton - Please call patient to schedule. [address] [facility], [address], [address], 08/25/2024 12:35:27 US, thyroid - Please call patient to schedule. [address] [facility], [address] [place], [address], 08/25/2024 12:35:53 DEXA, axial skeleton - Please call patient to schedule. [address] [facility], [address] [address], [place], [address], 09/01/2024 17:09:47 US, thyroid - Please call patient to schedule. [address] [facility], [address] [facility], [place], [address], 06/30/2024 09:39:01 DEXA, axial skeleton [address], [address] [place] [address] , [place], [address], 05/28/2024 15:09:08 US, thyroid [address], [address] [place] [address] [place], [address], 05/28/2024 15:09:17 DEXA, axial skeleton [email or web address] [place] [address], [address] [place] [address] [place], [address], 03/19/2024 09:18:34 US, thyroid [email or web address] [facility], [address] [facility], [place], [address], 03/19/2024 09:18:34 Medication Orders cholecalc iferol (vitamin D3) 1,250 mcg (50,000 unit) capsule 2023 024 [email or web address] [facility] #[id number], [address], [place], [id number], 08/25/2024 12:13:58 Symbicort 160 mcg-4.5 mcg/actua tion HFA aerosol inhaler 2023 024 [facility] #[id number], [address], [place], [id number], 09/05/2023 11:03:18 Singulair 10 mg tablet 2023 024 [facility] #[id number], [address], [place], [id number], 09/05/2023 11:03:13 Airsupra 90 mcg-80 mcg/actua tion HFA aerosol inhaler 2023 024 [facility] #[id number], [address] [place], [place], [id number], 01/23/2024 10:51:28 rosuvasta tin 40 mg tablet 2023 024 [facility] #[id number], [address] [place], [place], [id number], 09/05/2023 11:03:11 Patient TargetsNo targets recorded. Patient InstructionsNo instructions recorded. Reason for Referral Referring Physician: Zuleika Denney, Internal Medicine, Encounter Date: 05/28/2024 Please call patient to sched ule an appointment. Thank you. Referring Physician: Zuleika Denney, Internal Medicine, Encounter Date: 08/25/2024 Results Created Date Observation Date Name Description Value Unit Range Abnormal Flag Note LastModifiedBy Organization Detail LastModifiedTime 08/22/19 24 08/22/2023 CBC/C OMPLE TE BLD COUNT W/DIF F white blood cells 6.6 x10'3 /uL 4.2-10 .8 Not Available [facility] (Lab) [address] [place], [address], 08/22/2023 13:12:41 08/22/19 24 08/22/2023 CBC/C OMPLE TE BLD COUNT W/DIF F red blood cells 4.25 x10'6 /uL 3.80-5 .20 Not Available [facility] (Lab) [address] [place], [address], 08/22/2023 13:12:41 08/22/19 24 08/22/2023 CBC/C OMPLE TE BLD COUNT W/DIF F hemoglobin 12.6 g/dL 12.0-1 5.6 Not Available [facility] (Lab) [address] [place], [address], 08/22/2023 13:12:41 08/22/19 24 08/22/2023 CBC/C OMPLE TE BLD COUNT W/DIF F hematocrit 40.4 % 35.7-4 5.7 Not Available [facility] (Lab) [address] [place], [address], 08/22/2023 13:12:41 08/22/19 24 08/22/2023 CBC/C OMPLE TE BLD COUNT W/DIF F mean red cell volume 95.1 fL 82.0-9 9.0 Not Available [facility] (Lab) [address] [place], [address], 08/22/2023 13:12:41 08/22/19 24 08/22/2023 CBC/C OMPLE TE BLD COUNT W/DIF F mean red cell hemoglobin 29.6 pg 27.0-3 3.0 Not Available [facility] (Lab) [address] [place], [address], 08/22/2023 13:12:41 08/22/19 24 08/22/2023 CBC/C OMPLE TE BLD COUNT W/DIF F mean RBC HGB concentratio n 31.2 g/dL 31.0-3 6.0 Not Available [facility] (Lab) [address] [place], [address], 08/22/2023 13:12:41 08/22/19 24 08/22/2023 CBC/C OMPLE TE BLD COUNT W/DIF F red cell distribution width 12.7 % 11.8-1 5.5 Not Available [facility] (Lab) [address] [place], [address], 08/22/2023 13:12:41 08/22/19 24 08/22/2023 CBC/C OMPLE TE BLD COUNT W/DIF F platelets 156 x10'3 /uL 150-40 0 Not Available [facility] (Lab) [address] [place], [address], 08/22/2023 13:12:41 08/22/19 24 08/22/2023 CBC/C OMPLE TE BLD COUNT W/DIF F mean platelet volume 11.1 fL 9.0-12 .4 Not Available [facility] (Lab) [address] [place], [address], 08/22/2023 13:12:41 08/22/19 24 08/22/2023 CBC/C OMPLE TE BLD COUNT W/DIF F neutrophils 60.9 % 39.0-7 2.0 Not Available [facility] (Lab) [address] [place], [address], 08/22/2023 13:12:41 08/22/19 24 08/22/2023 CBC/C OMPLE TE BLD COUNT W/DIF F lymphocytes 23.2 % 16.0-4 7.0 Not Available [facility] (Lab) [address] [place], [address], 08/22/2023 13:12:41 08/22/19 24 08/22/2023 CBC/C OMPLE TE BLD COUNT W/DIF F monocytes 8.7 % 5.0-12 .0 Not Available [facility] (Lab) [address] [place], [address], 08/22/2023 13:12:41 08/22/19 24 08/22/2023 CBC/C OMPLE TE BLD COUNT W/DIF F eosinophils 6.0 % 1.0-7. 0 Not Available [facility] (Lab) [address] [place], [address], 08/22/2023 13:12:41 08/22/19 24 08/22/2023 CBC/C OMPLE TE BLD COUNT W/DIF F basophils 0.9 % 0.0-2. 0 Not Available [facility] (Lab) [address] [place], [address], 08/22/2023 13:12:41 08/22/19 24 08/22/2023 CBC/C OMPLE TE BLD COUNT W/DIF F immature granulocytes 0.3 % 0.00-0 .50 Not Available [facility] (Lab) [address] [place], [address], 08/22/2023 13:12:41 08/22/19 24 08/22/2023 CBC/C OMPLE TE BLD COUNT W/DIF F neutrophils, absolute count 4.03 x10'3 /uL 1.5-8. 0 Not Available [facility] (Lab) [address] [place], [address], 08/22/2023 13:12:41 08/22/19 24 08/22/2023 CBC/C OMPLE TE BLD COUNT W/DIF F lymphocytes, absolute count 1.54 x10'3 /uL 1.07-3 .43 Not Available [facility] (Lab) [address] [place], [address], 08/22/2023 13:12:41 08/22/19 24 08/22/2023 CBC/C OMPLE TE BLD COUNT W/DIF F monocytes, absolute count 0.58 x10'3 /uL 0.29-0 .99 Not Available [facility] (Lab) [address] [place], [address], 08/22/2023 13:12:41 08/22/19 24 08/22/2023 CBC/C OMPLE TE BLD COUNT W/DIF F eosinophils, absolute count 0.40 x10'3 /uL 0.02-0 .53 Not Available [facility] (Lab) [address] [place], [address], 08/22/2023 13:12:41 08/22/19 24 08/22/2023 CBC/C OMPLE TE BLD COUNT W/DIF F basophils, absolute count 0.06 x10'3 /uL 0.01-0 .08 Not Available [facility] (Lab) [address] [place], [address], 08/22/2023 13:12:41 08/22/19 24 08/22/2023 CBC/C OMPLE TE BLD COUNT W/DIF F immature granulocytes ,absolute 0.02 x10'3 /uL 0.00-0 .05 Not Available [facility] (Lab) [address] [place], [address], 08/22/2023 13:12:41 08/22/19 24 08/22/2023 CBC/C OMPLE TE BLD COUNT W/DIF F nucleated red blood cells 0.0 % -0 Not Available [facility] (Lab) [address] [place], [address], 08/22/2023 13:12:41 08/22/19 24 08/22/2023 CBC/C OMPLE TE BLD COUNT W/DIF F NRBC# 0.00 x10'3 /uL Not Available [facility] (Lab) [address] [place], [address], 08/22/2023 13:12:41 08/22/19 24 08/22/2023 LIPID PANEL cholesterol 209 mg/dL 140-19 9 high NIH KELLY NSUS RECOM MENDA TION FOR RADHA STERO L: ADULT CHILD LOW RISK: <200 <170 BORDE RLINE : <200- 239 ----- HIGH RISK: >240 >200 Not Available [facility] (Lab) [address] [place], [address], 08/22/2023 13:35:01 08/22/19 24 08/22/2023 LIPID PANEL triglyceride s 82 mg/dL 0-150 NIH KELLY NSUS REPOR T RECOM MENDA TION FOR TRIGL YCERI GRACE: ADULT CHILD LOW RISK: <150 ----- BODER LINE: 150-1 99 ----- HIGH RISK: >200 ----- Not Available [facility] (Lab) [address] [place], [address], 08/22/2023 13:35:01 08/22/19 24 08/22/2023 LIPID PANEL HDL cholesterol 80 mg/dL 40- Not Available [facility] (Lab) [address] [place], [address], 08/22/2023 13:35:01 08/22/19 24 08/22/2023 LIPID PANEL LDL cholesterol, calculated 113 mg/dL 0-130 NIH KELLY NSUS REPOR T RECOM MENDA TIONS FOR LDL: ADULT CHILD LOW RISK <130 <110 (OPTI MAL LDL) <100 ----- BORDE RLINE : 130-1 59 ----- HIGH RISK: >160 >130 A TRIGL YCERI DE RESUL T >400 INVAL IDATE S THE CALCU LATIO N FOR LDL FRACT IONAT ION - THE LDL RESUL T WILL NOT BE REPOR EH. Not Available [facility] (Lab) [address] [place], [address], 08/22/2023 13:35:01 08/22/19 24 08/22/2023 COMPR EHENS SONG METAB OLIC PANEL sodium 139 mmol/ L 137-14 5 Not Available [facility] (Lab) [address] [place], [address], 08/22/2023 13:35:09 08/22/19 24 08/22/2023 COMPR EHENS SONG METAB OLIC PANEL potassium 3.7 mmol/ L 3.5-5. 1 Not Available [facility] (Lab) [address] [place], [address], 08/22/2023 13:35:09 08/22/19 24 08/22/2023 COMPR EHENS SONG METAB OLIC PANEL chloride 101 mmol/ L 98-107 Not Available [facility] (Lab) [address] [place], [address], 08/22/2023 13:35:09 08/22/19 24 08/22/2023 COMPR EHENS SONG METAB OLIC PANEL carbon dioxide 30 mmol/ L 22-30 Not Available [facility] (Lab) [address] [place], [address], 08/22/2023 13:35:09 08/22/19 24 08/22/2023 COMPR EHENS SONG METAB OLIC PANEL anion gap 11.7 mmol/ L 14-22 low Not Available [facility] (Lab) [address] [place], [address], 08/22/2023 13:35:09 08/22/19 24 08/22/2023 COMPR EHENS SONG METAB OLIC PANEL glucose 81 mg/dL 70-99 Not Available [facility] (Lab) [address] [place], [address], 08/22/2023 13:35:08/22/19 24 08/22/2023 COMPR EHENS SONG METAB OLIC PANEL BUN 16 mg/dL 8-19 Not Available [facility] (Lab) [address] [place], [address], 08/22/2023 13:35:09 08/22/19 24 08/22/2023 COMPR EHENS SONG METAB OLIC PANEL creatinine 0.69 mg/dL 0.66-1 .25 Not Available [facility] (Lab) [address] [place], [address], 08/22/2023 13:35:08/22/19 24 08/22/2023 COMPR EHENS SONG METAB OLIC PANEL GFR >60 Refer ence Range : [place] ge GFR Healt hy Adult : >60 mL/mi n/1.7 3 m2 Chron ic Kidne y Disea se: 15-60 mL/mi n/1.7 3 m2 Kidne y Failu re: <15/m L/min /1.73 m2 www.n iddk. nih.g ov The MDRD study equat ion has not been valid ated in child kings <18 years of age; pregn ant women ; the elder ly >85 years of age; or in some racia l or ethni c subgr oups, such as [facility] nics. Outsi de the valid ated giancarlo eters , estim ated GFR is less accur ate, requi ring clini akira judgm ent on a case- by-ca se basis . Clini akira inter preta tion for other races and ages must be made by the clini rimma. The MDRD study equat ion has not been valid ated for the evalu ation of serum creat inine relat ed to nutri mario l statu s or medic ation usage . For perso ns <18 years of age, a pedia tric GFR calcu lator is avail able on the [facility] websi te: https ://shabbir shana gallagher.o rg/pr ofess ional s/kdo qi/gf r_cal culat or Not Available [facility] (Lab) [address] [place], [address], 08/22/2023 13:35:09 08/22/19 24 08/22/2023 COMPR EHENS SONG METAB OLIC PANEL alkaline phosphatase 77 U/L 38-126 Not Available [facility] (Lab) [address] [place], [address], 08/22/2023 13:35:09 08/22/19 24 08/22/2023 COMPR EHENS SONG METAB OLIC PANEL alanine aminotransfe rase 21 U/L 0-35 Not Available [facility] (Lab) [address] [place], [address], 08/22/2023 13:35:09 08/22/19 24 08/22/2023 COMPR EHENS SONG METAB OLIC PANEL aspartate aminotransfe rase 29 U/L 15-37 Not Available [facility] (Lab) [address] [place], [address], 08/22/2023 13:35:09 08/22/19 24 08/22/2023 COMPR EHENS SONG METAB OLIC PANEL bilirubin, total 0.60 mg/dL 0.20-1 .30 Not Available [facility] (Lab) [address] [place], [address], 08/22/2023 13:35:09 08/22/19 24 08/22/2023 COMPR EHENS SONG METAB OLIC PANEL calcium 9.5 mg/dL 8.4-10 .2 Not Available [facility] (Lab) [address] [place], [address], 08/22/2023 13:35:09 08/22/19 24 08/22/2023 COMPR EHENS SONG METAB OLIC PANEL total protein 7.9 g/dL 6.3-8. 2 Not Available [facility] (Lab) [address] [place], [address], 08/22/2023 13:35:09 08/22/19 24 08/22/2023 COMPR EHENS SONG METAB OLIC PANEL albumin 4.6 g/dL 3.0-4. 4 high Not Available [facility] (Lab) [address] [place], [address], 08/22/2023 13:35:09 08/22/19 24 08/22/2023 COMPR EHENS SONG METAB OLIC PANEL globulin 3.3 g/dL 2.6-4. 2 Not Available [facility] (Lab) [address] [place], [address], 08/22/2023 13:35:09 08/22/19 24 08/22/2023 COMPR EHENS SONG METAB OLIC PANEL A/G ratio 1.4 ratio 1.0-2. 0 Not Available [facility] (Lab) [address] [place], [address], 08/22/2023 13:35:09 08/22/19 24 08/22/2023 T4 FREE free T4 0.95 NG/dL 0.78-2 .19 Not Available [facility] (Lab) [address] [place], [address], 08/22/2023 13:50:49 08/22/19 24 08/22/2023 TSH thyroid-stim ulating hormone 4.860 uIU/m L 0.465- 4.680 high Not Available [facility] (Lab) [address] [place], [address], 08/22/2023 14:09:12 02/26/20 24 02/26/2024 CBC/C OMPLE TE BLD COUNT W/DIF F white blood cells 5.6 x10'3 /uL 4.2-10 .8 Not Available [facility] (Lab) [address] [place], [address], 02/26/2024 14:32:57 02/26/20 24 02/26/2024 CBC/C OMPLE TE BLD COUNT W/DIF F red blood cells 4.18 x10'6 /uL 3.80-5 .20 Not Available [facility] (Lab) [address] [place], [address], 02/26/2024 14:32:57 02/26/20 24 02/26/2024 CBC/C OMPLE TE BLD COUNT W/DIF F hemoglobin 12.3 g/dL 12.0-1 5.6 Not Available [facility] (Lab) [address] [place], [address], 02/26/2024 14:32:57 02/26/20 24 02/26/2024 CBC/C OMPLE TE BLD COUNT W/DIF F hematocrit 38.6 % 35.7-4 5.7 Not Available [facility] (Lab) [address] [place], [address], 02/26/2024 14:32:57 02/26/20 24 02/26/2024 CBC/C OMPLE TE BLD COUNT W/DIF F mean red cell volume 92.3 fL 82.0-9 9.0 Not Available [facility] (Lab) [address] [place], [address], 02/26/2024 14:32:57 02/26/20 24 02/26/2024 CBC/C OMPLE TE BLD COUNT W/DIF F mean red cell hemoglobin 29.4 pg 27.0-3 3.0 Not Available [facility] (Lab) [address] [place], [address], 02/26/2024 14:32:57 02/26/20 24 02/26/2024 CBC/C OMPLE TE BLD COUNT W/DIF F mean RBC HGB concentratio n 31.9 g/dL 31.0-3 6.0 Not Available [facility] (Lab) [address] [place], [address], 02/26/2024 14:32:57 02/26/20 24 02/26/2024 CBC/C OMPLE TE BLD COUNT W/DIF F red cell distribution width 13.0 % 11.8-1 5.5 Not Available [facility] (Lab) [address] [place], [address], 02/26/2024 14:32:57 02/26/20 24 02/26/2024 CBC/C OMPLE TE BLD COUNT W/DIF F platelets 138 x10'3 /uL 150-40 0 low Not Available [facility] (Lab) [address] [place], [address], 02/26/2024 14:32:57 02/26/20 24 02/26/2024 CBC/C OMPLE TE BLD COUNT W/DIF F mean platelet volume 11.6 fL 9.0-12 .4 Not Available [facility] (Lab) [address] [place], [address], 02/26/2024 14:32:57 02/26/20 24 02/26/2024 CBC/C OMPLE TE BLD COUNT W/DIF F neutrophils 66.2 % 39.0-7 2.0 Not Available [facility] (Lab) [address] [place], [address], 02/26/2024 14:32:57 02/26/20 24 02/26/2024 CBC/C OMPLE TE BLD COUNT W/DIF F lymphocytes 20.9 % 16.0-4 7.0 Not Available [facility] (Lab) [address] [place], [address], 02/26/2024 14:32:57 02/26/20 24 02/26/2024 CBC/C OMPLE TE BLD COUNT W/DIF F monocytes 8.2 % 5.0-12 .0 Not Available [facility] (Lab) [address] [place], [address], 02/26/2024 14:32:57 02/26/20 24 02/26/2024 CBC/C OMPLE TE BLD COUNT W/DIF F eosinophils 3.2 % 1.0-7. 0 Not Available [facility] (Lab) [address] [place], [address], 02/26/2024 14:32:57 02/26/20 24 02/26/2024 CBC/C OMPLE TE BLD COUNT W/DIF F basophils 1.3 % 0.0-2. 0 Not Available [facility] (Lab) [address] [place], [address], 02/26/2024 14:32:57 02/26/20 24 02/26/2024 CBC/C OMPLE TE BLD COUNT W/DIF F immature granulocytes 0.2 % 0.00-0 .50 Not Available [facility] (Lab) [address] [place], [address], 02/26/2024 14:32:57 02/26/20 24 02/26/2024 CBC/C OMPLE TE BLD COUNT W/DIF F neutrophils, absolute count 3.70 x10'3 /uL 1.5-8. 0 Not Available [facility] (Lab) [address] [place], [address], 02/26/2024 14:32:57 02/26/20 24 02/26/2024 CBC/C OMPLE TE BLD COUNT W/DIF F lymphocytes, absolute count 1.17 x10'3 /uL 1.07-3 .43 Not Available [facility] (Lab) [address] [place], [address], 02/26/2024 14:32:57 02/26/20 24 02/26/2024 CBC/C OMPLE TE BLD COUNT W/DIF F monocytes, absolute count 0.46 x10'3 /uL 0.29-0 .99 Not Available [facility] (Lab) [address] [place], [address], 02/26/2024 14:32:57 02/26/20 24 02/26/2024 CBC/C OMPLE TE BLD COUNT W/DIF F eosinophils, absolute count 0.18 x10'3 /uL 0.02-0 .53 Not Available [facility] (Lab) [address] [place], [address], 02/26/2024 14:32:57 02/26/20 24 02/26/2024 CBC/C OMPLE TE BLD COUNT W/DIF F basophils, absolute count 0.07 x10'3 /uL 0.01-0 .08 Not Available [facility] (Lab) [address] [place], [address], 02/26/2024 14:32:57 02/26/20 24 02/26/2024 CBC/C OMPLE TE BLD COUNT W/DIF F immature granulocytes ,absolute 0.01 x10'3 /uL 0.00-0 .05 Not Available [facility] (Lab) [address] [place], [address], 02/26/2024 14:32:57 02/26/20 24 02/26/2024 CBC/C OMPLE TE BLD COUNT W/DIF F nucleated red blood cells 0.0 % -0 Not Available [facility] (Lab) [address] [place], [address], 02/26/2024 14:32:57 02/26/20 24 02/26/2024 CBC/C OMPLE TE BLD COUNT W/DIF F NRBC# 0.00 x10'3 /uL Not Available [facility] (Lab) [address] [place], [address], 02/26/2024 14:32:57 02/26/20 24 02/26/2024 CBC/C OMPLE TE BLD COUNT W/DIF F plt clum OCCASI ONAL Not Available [facility] (Lab) [address] [place], [address], 02/26/2024 14:32:57 02/26/20 24 02/26/2024 LIPID PANEL cholesterol 223 mg/dL 140-19 9 high NIH KELLY NSUS RECOM MENDA TION FOR RADHA STERO L: ADULT CHILD LOW RISK: <200 <170 BORDE RLINE : <200- 239 ----- HIGH RISK: >240 >200 Not Available [facility] (Lab) [address] [place], [address], 02/26/2024 16:19:01 02/26/20 24 02/26/2024 LIPID PANEL triglyceride s 53 mg/dL 0-150 NIH KELLY NSUS REPOR T RECOM MENDA TION FOR TRIGL YCERI GRACE: ADULT CHILD LOW RISK: <150 ----- BODER LINE: 150-1 99 ----- HIGH RISK: >200 ----- Not Available [facility] (Lab) [address] [place] [address], [address], 02/26/2024 16:19:01 02/26/20 24 02/26/2024 LIPID PANEL HDL cholesterol 89 mg/dL 40- Not Available [facility] (Lab) [address] [place], [address], 02/26/2024 16:19:01 02/26/20 24 02/26/2024 LIPID PANEL LDL cholesterol, calculated 123 mg/dL 0-130 [facility] KELLY NSUS REPOR T RECOM MENDA TIONS FOR LDL: ADULT CHILD LOW RISK <130 <110 (OPTI MAL LDL) <100 ----- BORDE RLINE : 130-1 59 ----- HIGH RISK: >160 >130 A TRIGL YCERI DE RESUL T >400 INVAL IDATE S THE CALCU LATIO N FOR LDL FRACT IONAT ION - THE LDL RESUL T WILL NOT BE REPOR EH. Not Available [facility] (Lab) [address] [place], [address], 02/26/2024 16:19:01 02/26/20 24 02/26/2024 COMPR EHENS SONG METAB OLIC PANEL sodium 137 mmol/ L 137-14 5 Not Available [facility] (Lab) [address] [place], [address], 02/26/2024 16:19:31 02/26/20 24 02/26/2024 COMPR EHENS SONG METAB OLIC PANEL potassium 4.2 mmol/ L 3.5-5. 1 Not Available [facility] (Lab) [address] [place], [address], 02/26/2024 16:19:31 02/26/20 24 02/26/2024 COMPR EHENS SONG METAB OLIC PANEL chloride 107 mmol/ L 98-107 Not Available [facility] (Lab) [address] [place], [address], 02/26/2024 16:19:31 02/26/20 24 02/26/2024 COMPR EHENS SONG METAB OLIC PANEL carbon dioxide 28 mmol/ L 22-30 Not Available [facility] (Lab) [address] [place], [address], 02/26/2024 16:19:31 02/26/20 24 02/26/2024 COMPR EHENS SONG METAB OLIC PANEL anion gap 6.2 mmol/ L 14-22 low Not Available [facility] (Lab) [address] [place], [address], 02/26/2024 16:19:31 02/26/20 24 02/26/2024 COMPR EHENS SONG METAB OLIC PANEL glucose 85 mg/dL 70-99 Not Available [facility] (Lab) [address] [place], [address], 02/26/2024 16:19:31 02/26/20 24 02/26/2024 COMPR EHENS SONG METAB OLIC PANEL BUN 16 mg/dL 8-19 Not Available [facility] (Lab) [address] [place], [address], 02/26/2024 16:19:31 02/26/20 24 02/26/2024 COMPR EHENS SONG METAB OLIC PANEL creatinine 0.81 mg/dL 0.66-1 .25 Not Available [facility] (Lab) [address] [place], [address], 02/26/2024 16:19:31 02/26/20 24 02/26/2024 COMPR EHENS SONG METAB OLIC PANEL GFR >60 Refer ence Range : [place] ge GFR Healt hy Adult : >60 mL/mi n/1.7 3 m2 Chron ic Kidne y Disea se: 15-60 mL/mi n/1.7 3 m2 Kidne y Failu re: <15/m L/min /1.73 m2 www.n iddk. nih.g ov The MDRD study equat ion has not been valid ated in child kings <18 years of age; pregn ant women ; the elder ly >85 years of age; or in some racia l or ethni c subgr oups, such as la nics. Outsi de the valid ated giancarlo eters , estim ated GFR is less accur ate, requi ring clini akira judgm ent on a case- by-ca se basis . Clini akira inter preta tion for other races and ages must be made by the clini rimma. The MDRD study equat ion has not been valid ated for the evalu ation of serum creat inine relat ed to nutri mario l statu s or medic ation usage . For perso ns <18 years of age, a pedia tric GFR calcu lator is avail able on the [facility] websi te: https :[email or web address] [email or web address] [email or web address] rg/pr ofess ional s/kdo qi/gf r_cal culat or Not Available [facility] (Lab) [address] [place], [address], 02/26/2024 16:19:31 02/26/20 24 02/26/2024 COMPR EHENS SONG METAB OLIC PANEL alkaline phosphatase 81 U/L 38-126 Not Available [facility] (Lab) [address] [place], [address], 02/26/2024 16:19:31 02/26/20 24 02/26/2024 COMPR EHENS SONG METAB OLIC PANEL alanine aminotransfe rase 27 U/L 0-35 Not Available [facility] (Lab) [address] [place], [address], 02/26/2024 16:19:31 02/26/20 24 02/26/2024 COMPR EHENS SONG METAB OLIC PANEL aspartate aminotransfe rase 31 U/L 15-37 Not Available [facility] (Lab) [address] [place], [address], 02/26/2024 16:19:31 02/26/20 24 02/26/2024 COMPR EHENS SONG METAB OLIC PANEL bilirubin, total 0.80 mg/dL 0.20-1 .30 Not Available [facility] (Lab) [address] [place], [address], 02/26/2024 16:19:31 02/26/20 24 02/26/2024 COMPR EHENS SONG METAB OLIC PANEL calcium 9.2 mg/dL 8.4-10 .2 Not Available [facility] (Lab) [address] [place], [address], 02/26/2024 16:19:31 02/26/20 24 02/26/2024 COMPR EHENS SONG METAB OLIC PANEL total protein 7.6 g/dL 6.3-8. 2 Not Available [facility] (Lab) [address] [place], [address], 02/26/2024 16:19:31 02/26/20 24 02/26/2024 COMPR EHENS SONG METAB OLIC PANEL albumin 4.3 g/dL 3.0-4. 4 Not Available [facility] (Lab) [address] [place], [address], 02/26/2024 16:19:31 02/26/20 24 02/26/2024 COMPR EHENS SONG METAB OLIC PANEL globulin 3.3 g/dL 2.6-4. 2 Not Available [facility] (Lab) [address] [place], [address], 02/26/2024 16:19:31 02/26/20 24 02/26/2024 COMPR EHENS SONG METAB OLIC PANEL A/G ratio 1.3 ratio 1.0-2. 0 Not Available [facility] (Lab) [address] [place], [address], 02/26/2024 16:19:31 02/26/20 24 02/26/2024 T4 FREE free T4 0.89 NG/dL 0.78-2 .19 Not Available [facility] (Lab) [address] [place], [address], 02/26/2024 16:26:01 02/26/20 24 02/26/2024 VITAM IN D 25-HY DROXY vd25oh 34.3 NG/mL 30-100 Vitam in D Statu s: Defic ient: <20 ng/mL Insuf ficie nt: 20-29 ng/mL Suffi cient : 30-10 0 ng/mL Not Available [facility] (Lab) [address] [place], [address], 02/26/2024 16:30:41 02/26/20 24 02/26/2024 TSH thyroid-stim ulating hormone 5.730 uIU/m L 0.465- 4.680 high Not Available [facility] (Lab) [address] [place], [address], 02/26/2024 16:46:01 Result Notes None recorded. Problems Name Problem SNOMED Code Status Onset Date Resolution Date Notes Provider Name and Address Organization Details Recorded Time Acute sinusitis 15736988 Active 2021 Not Available [facility] 3 00:48:21 Vitamin D deficiency 92448677 Active 2022 Kristine Bruno RN [facility], [employer] 3 09:40:41 Asthma 834832348 Active 2022 Zuleika slater MD [address], [place], [address] , [employer] 3 10:32:48 Thrombocytope tino disorder 217972724 Active 2022 Zuleika slater MD [address], [place], [address] , [employer] 3 10:32:57 Hyperlipidemi a 39513448 Active 2022 Zuleika slater MD [address], [place], [address] , [employer] 3 10:33:00 Deficiency of vitamin D2 045359871 Active 2022 Zuleika slater MD [address], [place], [address] , [employer] 3 10:33:06 Anemia 592945956 Active 2022 MD [address], [place], [address] , [employer] 3 11:04:29 Hypothyroidis m 54006973 Active 2023 Zuleika slater MD [address], [place], [address] , [employer]. 4 10:38:35 Cough 62769286 Active 2024 Dmitriy Fitzpatrick CMA null, [place] - [facility] 5 15:21:49 Problem Notes None recorded. Procedures Surgical History Date Name Laterality Status Provider Name and Address Organization Details Recorded Time procedure on wrist completed Not Available [facility] 09/13/2022 00:43:48 Imaging Results None recorded. Procedure Notes None recorded. Medical Equipment None Reported. Allergies Allergen ID Allergen Name Allergen Category Reaction Reaction Severity Criticality Documentation Date Start Date Code Code System Note Provider Name and Address Organization Details Recorded Time 602 titanium Not available Not available Not available Not available 09/13/2022 89458 47 RxNorm Not Available [facility] 3 00:53:36 603 Compazine medicatio n Not available Not available Not available 09/13/2022 22485 6 RxNorm Not Available [facility] 3 00:53:36 Medications Name Sig Start Date Stop Date Status Note LastModified by Organization Details LastModified Time amoxicill in 500 mg capsule TK 1 C PO Q 8 H active Not Available Not Available No t Available Augmentin 875 mg-125 mg tablet Take 1 tablet every 12 hours by oral route. 2024 active Not Available Not Available Not Avai lable clindamyc in HCl 300 mg capsule TAKE 1 CAPSULE BY MOUTH THREE TIMES DAILY UNTIL ALL TAKEN 01/31 completed Not Available Not Available Not Available hydrocodo ne 5 mg-acetam inophen 325 mg tablet TAKE 1 TABLET BY MOUTH EVERY 4-6 HOURS NEEDED PAIN 01/31 completed Not Available Not Available Not Available Zithromax Z-Gerard 250 mg tablet TAKE 2 TABLETS (500 MG) BY ORAL ROUTE ONCE DAILY FOR 1 DAY THEN 1 TABLET (250 MG) BY ORAL ROUTE ONCE DAILY FOR 4 DAYS 01/31 completed Not Available Not Available Not Available tramadol 50 mg tablet TAKE 1 TABLET BY MOUTH EVERY 6 HOURS NEEDED FOR PAIN 01/31 completed Not Available Not Available Not Available amoxicill in 875 mg tablet TAKE 1TABLET STAT BY MOUTH. THEN TAKE 1 TABLET TWICE DAILY UNTIL GONE 01/31 completed Not Available Not Available Not Available benzonata te 100 mg capsule TAKE 1 CAPSULE BY MOUTH THREE TIMES DAILY FOR 7 DAYS NEEDED 01/31 completed Not Available Not Available Not Available hydrocodo ne 7.5 mg-acetam inophen 325 mg tablet TAKE 1 TABLET BY MOUTH EVERY 4-6 HOURS NEEDED FOR PAIN 01/31 completed Not Available Not Available Not Available oseltamiv ir 75 mg capsule TK 1 C PO BID FOR 5 DAYS active Not Available Not Available No t Available mont[address] [facility] 10 mg tablet TAKE 1 TABLET BY MOUTH EVERY DAY 2023 active Not Available Not Available Not Avai lable ergocalci ferol (vitamin D2) 1,250 mcg (50,000 unit) capsule TAKE 1 CAPSULE BY MOUTH EVERY WEEK active Not Available Not Available No t Available estradiol 0.01% (0.1 mg/gram) vaginal cream INSERT 1 GRAM VAGINALL Y 3 TIMES A WEEK active Not Available Not Available No t Available levofloxa lawrence 750 mg tablet TK 1 T PO QD FOR 7 DAYS 04/08 completed Not Available Not Available Not Available methylpre dnisolone 4 mg tablets in a dose pack FOLLOW PACKAGE DIRECTIO NS 01/31 completed Not Available Not Available Not Available albuterol sulfate HFA 90 mcg/actua tion aerosol inhaler INHALE 2 PUFFS BY MOUTH EVERY 4 HOURS 2024 active Not Available Not Available Not Avai lable fluticaso ne propionat e 50 mcg/actua tion nasal spray,deborah pension SHAKE LQ AND U 1 SPR IEN QD active Not Available Not Available No t Available loratadin e 10 mg tablet TK 1 T PO QD PRN 04/19 completed Not Available Not Available Not Available rosuvasta tin 40 mg tablet TAKE 1 TABLET BY MOUTH EVERY DAY 2023 active Not Available Not Available Not Avai lable albuterol sulfate 2 puffs as needed 04/09 completed Not Available Not Available Not Available Zyrtec TK 1T PO QD PRN 2020 active Not Available Not Available Not Avai lable Symbicort 160 mcg-4.5 mcg/actua tion HFA aerosol inhaler INHALE 2 PUFFS BY MOUTH TWICE DAILY active Not Available Not Available No t Available cholecalc iferol (vitamin D3) 1,250 mcg (50,000 unit) capsule TAKE ONE CAPSULE BY MOUTH ONCE A WEEK 02/10 /2025 completed Not Available Not Available Not Available Symbicort 2 puffs 1 time every day 09/05 completed duplicat e Not Available Not Available Not Available ProChambe r USE DIRECTED active Not Available Not Available No t Available BinaxNOW COVID-19 Ag Self Test kit TEST DIRECTED TODAY 01/31 completed Not Available Not Available Not Available Airsupra 90 mcg-80 mcg/actua tion HFA aerosol inhaler Inhale by inhalati on route for 30 days. 01/22 completed Not Available Not Available Not Available Vitals Date Recorded Body height Body mass index (BMI) Body weight Body temperature Heart rate Systolic blood pressure Diastolic blood pressure Provider Name and Address Organization Details Last Updated DateTime 4 157.48 cm 26 kg/m2 95909.1 2 g 97.6 [degF] 72 /min 120 mm[Hg] 60 mm[Hg] Sujey Bynum [facility] [employer] 4 10:31:38 Date Recorded Body height Body mass index (BMI) Body weight Body temperature Heart rate Systolic blood pressure Diastolic blood pressure Provider Name and Address Organization Details Last Updated DateTime 4 157.48 cm 26.2 kg/m2 40493.7 1 g 97.6 [degF] 72 /min 118 mm[Hg] 80 mm[Hg] Sujey Bynum [facility] [employer] 4 10:54:32 Date Recorded Body height Body mass index (BMI) Body weight Body temperature Systolic blood pressure Diastolic blood pressure Provider Name and Address Organization Details Last Updated DateTime 4 157.48 cm 27.4 kg/m2 32237.8 6 g 97.5 [degF] 122 mm[Hg] 60 mm[Hg] Sujey Bynum [facility] [employer] 4 10:36:16 Date Recorded Body height Body mass index (BMI) Body weight Body temperature Heart rate Oxygen saturation Oxygen saturation in Arterial blood by Pulse oximetry Systolic blood pressure Diastolic blood pressure Provider Name and Address Organization Details Last Updated DateTime 5 157.48 cm 26.5 kg/m2 05351.8 9 g 97.6 [degF] 74 /min 98 % 98 % 118 mm[Hg] 72 mm[Hg] Blessing Galvez MA [place] - [facility] 5 11:37:44 Social History Question Answer Notes LastModified by Organizat ion Details LastModified Time Tobacco Smoking Status Never Smoker Not Available [employer] 09/13/2022 00:43:39 Do You Have An Advance Directive? No Information not available 01/31/2023 What Is Your Level Of Alcohol Consumption? None [id number] Information not available 09/13/2022 Are You Blind Or Do You Have Difficulty Seeing? No Information not available 01/31/2023 In The 14 Days Before Symptom Onset, Have You Had Close Contact With A Laboratory-confi rmed COVID-19 While That Case Was Ill? No [id number] Information not available 09/13/2022 In The 14 Days Before Symptom Onset, Have You Had Close Contact With A Person Who Is Under Investigation For COVID-19 While That Person Was Ill? No [id number] Information not available 09/13/2022 Are You Currently Employed? No Information not available 01/31/2023 Are You Deaf Or Do You Have Serious Difficulty Hearing? No Information not available 01/31/2023 What Type Of Diet Are You Following? REGULAR [id number] Information not available 09/13/2022 Do You Or Have You Ever Used E-cigarettes Or Vape? Never Used Electronic Cigarettes [id number] Information not available 09/13/2022 What Is The Fluoride Status Of Your Home? Unknown Information not available 01/31/2023 Are There Any Guns Present In Your Home? No Information not available 01/31/2023 Where [facility] You Live? 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 08/25/2024 [email or web address] Information not available 08/25/2024 Do You Have Any Pets? Yes Information not available 01/31/2023 What Is Your Relationship Status? [id number] Information not available 09/13/2022 Do You Use Your Seat Belt Or Car Seat Routinely? Yes Information not available 01/31/2023 Do You Have Smoke And Carbon Monoxide Detectors In Your Home? No Information not available 01/31/2023 Are You Passively Exposed To Smoke? No Information not available 01/31/2023 Do You Or Have You Ever Used Smokeless Tobacco? Never Used Smokeless Tobacco [id number].[id number] Information not available 09/13/2022 Are There Any Smokers In Your House? No Information not available 01/31/2023 How Much Tobacco Do You Smoke? No [id number].25011 [id number] Information not available 09/13/2022 Do You Feel Stressed (tense, Restless, Nervous, Or Anxious, Or Unable To Sleep At Night)? [id number] Information not available 01/31/2023 Do You Use Any Illicit Or Recreational Drugs? No MIGRATION.[id number] Information not available 09/13/2022 Has Tobacco Cessation Counseling Been Provided? No N/a Information not available 01/31/2023 How Many Years Have You Smoked Tobacco? 0 [id number].47999 11268 Information not available 09/13/2022 Have You Recently Traveled Abroad? No Information not available 01/31/2023 Do You Have Any Dietary Restrictions? No MIGRATION.[id number] Information not available 09/13/2022 Do You Or Have You Ever Used Any Other Forms Of Tobacco Or Nicotine? No Information not available 01/31/2023 Sex: Female Functional Status Question Answer Note LastModified by Organizat ion Details LastModified Time Do you have difficulty walking or climbing stairs? No Information not available 01/31/2023 Do you have transportation difficulties? No Information not available 01/31/2023 Are you able to walk? YESWOREST Information not available 01/31/2023 Do you have difficulty doing errands alone? No Information not available 01/31/2023 Are you able to care for yourself? Yes Information n ot available 01/31/2023 Do you have difficulty dressing or bathing? No Information not available 01/31/2023 What is your exercise level? None [id number] Information not available 09/13/2022 Mental Status Question Answer Note LastModified by Organization D etails LastModified Time Do you have difficulty concentrating, remembering or making decisions? No Information no t available 01/31/2023 Family History Relationship Description Onset Age of this Age Resolved Age Notes LastModified by Organization Details LastModified Time Father Diabetes mellitus [id number] Not available 09/13/2022 00:43:54 Father Cardiovascul ar injury [id number] Not available 09/13/2022 00:43:54 Mother History of hypertension [id number] Not available 09/13/2022 00:43:54 Medical History Condition Response NERVE DISEASE N BLINDNESS N RHEUMATIC FEVER N KIDNEY STONES N BLADDER PROBLEMS N MRSA N OTHER # 1 N POLIO N LUNG DISEASE/DISORDER N RADIATION / CHEMOTHERAPY N COPD N Other # 2 N BLOOD DISEASES N EAR OR HEARING PROBLEMS N MUMPS N BOWEL PROBLEMS N DEPRESSION (INCLUDING POST ) N STROKE/TIA N ULCERS N BENIGN PROSTATIC HYPERPLASIA N MEASLES N MYOCARDIAL INFARCTION N OBESITY N GERD/NAUSEA N ANEURYSM N URINARY/BLADDER/KIDNEY PROBLEMS N CORONARY ARTERY DISEASE (CAD) N ADDICTION CONCERNS N ENDOMETRIOSIS N Impotence N USE OF BLOOD THINNERS N SKIN PROBLEMS N GASTROINTESTINAL DISORDER N PERIPHERAL VASCULAR DISEASE N MUSCLE,JOINT OR BONE PROBLEMS N GASTROINTESTINAL BLEEDING N BLOOD CLOTS N ASTHMA Y CATARACTS N ERECTILE DYSFUNCTION N VARICOSITIES N GI PROBLEMS N Low Testosterone N INFERTILITY N AIDS/HIV N CHEMOTHERAPY / RADIATION N LIVER DISEASE N MALE HYPOGONADISM N HYPERTENSION N Deficiency Y TOURETTE'S N ANXIETY DISORDER N BLOOD TRANSFUSION N ANEMIA/BLOOD DISORDER CHRONIC EAR INFECTIONS N BRONCHITIS N TUBERCULOSIS N GLAUCOMA N FOOT PROBLEM N DIVERTICULITIS N SLEEP APNEA N CHICKENPOX N INFECTIOUS DISEASE N HEART ARRHYTHMIA N PROSTATE N INSOMNIA N HIGH CHOLESTEROL / HYPERLIPIDEMIA Y HYPERTHYROIDISM N EYE PROBLEMS N EDEMA N CHRONIC PAIN SYNDROME N HYPOTHYROIDISM N CAROTID BLOCKAGE N CONSTIPATION N BACK / NECK PROBLEMS N ATHEROSCLEROSIS N BREAST PROBLEMS N DIALYSIS N ECZEMA N OSTEOPOROSIS N ARTHRITIS N APPENDICITIS N DIABETES, TYPE N BAD TEETH N ENT N HEARTBURN / REFLUX Y AUTISM SPECTRUM DISORDER (ASD) N HEPATITIS / LIVER DISEASE N GOUT N SLEEP DISORDER N ALZHEIMER'S DISEASE N Brain Problems N HERPES N DEMENTIA N HEADACHES/MIGRAINES N SEIZURES/EPILEPSY N VASCULAR DISEASE N PACEMAKER N Blood Disorder N DIZZINESS N HEART DISEASE/HEART PROBLEMS N KIDNEY DISEASE N MULTIPLE SCLEROSIS N CARDIAC ARRHYTHMIA N CANCER: SPECIFY N ATRIAL FIBRILLATION N Gall Stones N PULMONARY EMBOLISM N AUTOIMMUNE DISEASE N Gynecological HistoryNo gynecological history recorded. Obstetrics History GPAL:G 0 P 0 0 0 0 Immunizations Vaccine Type Date Status Note Provider Nam e and Address Organization Details Recorded Time Influenza, split virus, quadrivalent, preservative 8 completed Not Available [facility] 09/13/2022 00:53:31 Influenza, high-dose, quadrivalent, PF 0 completed Not Available [facility] 09/13/2022 00:53:31 Pneumococcal conjugate PCV 13 0 completed Jack Linton 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 null, [facility] [employer] [facility] 01/16/2024 14:11:08 Influenza, high-dose, quadrivalent, PF 2 completed Jack Linton LPN null, [facility] [employer] [facility] 01/16/2024 14:11:08 COVID-19, mRNA, LNP-S, PF, 30 mcg/0.3 mL dose 1 completed 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, [facility] [employer] [facility] 01/16/2024 14:11:08 COVID-19, mRNA, LNP-S, PF, 30 mcg/0.3 mL dose 1 completed Jack Linton LPN null, [facility] [employer] [facility] 01/16/2024 14:11:08 COVID-19, mRNA, LNP-S, PF, 30 mcg/0.3 mL dose 1 completed 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 [employer] [facility] 05/28/2024 18:35:01 Past Encounters Encounter ID Performer Location Encounter Start Date Encounter Closed Date Diagnosis/Indication Diagnosis SNOMED-CT Code Diagnosis ICD10 Code Diagnosis Note [id number] [facility] Internal Med Asher whalen [address] [facility] [place] [address] 09/13/2020 00:00:00 09/13/2020 16:55:42 [id number] [facility] Internal [facility] Asher whalen [address] [place] [address] [place] [address] 02/09/2021 00:00:00 02/09/2021 14:28:58 [id number] Zuleika slater MD [facility] Internal [facility] Asher wh[address] [place] [address] [place] [address] 01/31/2023 10:24:09 01/31/2023 11:38:25 Screening - NAD 946505615 Z13.9 C-scope: Done last year, in [facility] m: 03/11/19:D r Nessa Early 01/05/17, C-scope: To be done again in 7 years PAP: Did see Dr Robles and does well now Mammogram: Needs to get this done DEXA: 09/05/2019 : Osteopenia , does ca and vit d Get yearly flu shot 04/19/2020 [facility]/2020 Can do shingles vaccineGet COVID 19 vaccine done RTC in 4 monthsGet labsER if worseShe and her did verbalize her understand ing of the above Asthma 552402131 J45.90 9 On symbicort, renewed 01/31/2023 On singulairO n albuterol Does well Thrombocyt openic disorder 520221927 D69.6 Get labs and then will decide if she wants to see Dr Dover again Hyperlipidemia 98269456 E78.5 Get back on rosuvastat in 40mg dailyGet labs Vitamin D deficiency 347 72658 E55.9 Screening mammography 24 499145 Z12.31 Ordered 09/13/2020 , 02/09/2021 , but she does not want to do thisAdvise d on SBE and notify if any symptoms occur or change Anemia 941730247 D64.9 Does wellGet labs [id number] Zuleika slater MD [facility] Internal [facility] Asher wh[address] [place] [address] [address] 09/05/2023 10:11:46 09/05/2023 11:10:04 Asthma 334917959 J45.909 On symbicort, renewed 01/31/2023 On singulairO n albuterol will d/cStart on airsupra Does well Hyperlipidemia 18251067 E78.5 Get back on rosuvastat in 40mg dailyGet labs Screening - NAD 71543189 3 Z13.9 C-scope: Done last year, in [facility] m: 03/11/19:D r Nessa Early 01/05/17, C-scope: To be done again in 7 years PAP: Did see Dr Robles and does well now Mammogram: Needs to get this done DEXA: 09/05/2019 : Osteopenia , does ca and vit d Get yearly flu shot 04/19/2020 Td 2010 as per [facility] TD PCV #13 04/19/2020 Can do shingles vaccineGet COVID 19 vaccine doneDo RSV vaccine RTC in 4 monthsGet labsER if worseShe and her did verbalize her understand ing of the above Thrombocyt openic disorder 997460783 D69.6 Get labs and then will decide if she wants to see Dr Dover again Vitamin D deficiency 347 49035 E55.9 Screening mammography 24 220044 Z12.31 Ordered 09/13/2020 , 02/09/2021 , but she does not want to do thisAdvise d on SBE and notify if any symptoms occur or change Anemia 262717146 D64.9 Does wellGet labs Hypothyroidism 49708672 E03.9 Get labsGet US thyroid Screening for malignant neoplasm of colon 658947443 Z12.11 Screening for osteoporosis 680872940 Z13.307 [id number] Zuleika slater MD [facility] Asher whalen [address] [place] [address] 01/23/2024 10:23:14 01/23/2024 11:39:09 Asthma 708133985 J45.909 On symbicort, renewed 01/31/2023 On singulairO n albuterol will d/cStart on airsupra Does well Hyperlipidemia 25344235 E78.5 On rosuvastat in 40mg dailyGet labs Screening - NAD 25771916 3 Z13.9 C-scope: Done last year, in [facility] m: 03/11/19:D r Nessa Early 01/05/17, C-scope: To be done again in 7 years PAP: Did see Dr Robles and does well now Mammogram: Needs to get this done DEXA: 09/05/2019 : Osteopenia , does ca and vit d Get yearly flu shot 04/19/2020 Td 2010 as per [employer] TD PCV #13 04/19/2020 Can do shingles vaccineGet COVID 19 vaccine doneDo RSV vaccine RTC in 4 monthsGet labsER if worseShe and her did verbalize her understand ing of the above Thrombocyt openic disorder 734602562 D69.6 Get labs and then will decide if she wants to see Dr Dover again Vitamin D deficiency 347 10415 E55.9 Screening mammography 24 441730 Z12.31 Ordered 09/13/2020 , 02/09/2021 , but she does not want to do thisAdvise d on SBE and notify if any symptoms occur or change Anemia 305438030 D64.9 Does wellGet labs Hypothyroidism 67999161 E03.9 Get labsGet US thyroid Screening for malignant neoplasm of colon 196727780 Z12.11 Screening for osteoporosis 992198253 Z13.561 [id number] Zuleika slater MD [facility] [address] [place] [address] 05/28/2024 10:07:23 05/28/2024 11:13:16 Asthma 076984215 J45.909 On symbicort, renewed 01/31/2023 On singulairO n albuterol Does well Hyperlipidemia 18019125 E78.5 On rosuvastat in 40mg dailyGet labs Screening - NAD 00838895 3 Z13.9 C-scope: Done last year, in [facility] m: 03/11/19:D r Nessa Early 01/05/17, C-scope: To be done again in 7 years PAP: Did see Dr Robles and does well now Mammogram: Needs to get this done DEXA: 09/05/2019 : Osteopenia , does ca and vit d Get yearly flu shot 04/19/2020 Td 2010 as per [facility] TD PCV #13 04/19/2020 Can do shingles vaccineGet COVID 19 vaccine doneDo RSV vaccine RTC in 4 monthsGet labsER if worseShe and her did verbalize her understand ing of the above Thrombocyt openic disorder [id number] D69.[address] Dover again Vitamin D deficiency 347 91812 E55.9 Screening mammography 24 357430 Z12.31 Ordered 09/13/2020 , 02/09/2021 , but she does not want to do thisAdvise d on SBE and notify if any symptoms occur or change Anemia 085703943 D64.9 Does wellGet labs Hypothyroidism 99440333 E03.9 Get labsGet thyroid Screening for malignant neoplasm of colon 698020629 Z12.11 Screening for osteoporosis 041536762 Z13.820 Administra tion of influenza vaccine 97167867 Z23 [id number] Zuleika slater MD [facility] [place] [address] [place] [address] 08/21/2024 11:20:58 08/21/2024 11:50:26 [id number] Zuleika slater MD [facility] Primary Care [facility] [place] [address] 08/25/2024 11:22:01 08/25/2024 12:23:44 Asthma [id number] J45.909 On symbicort, renewed 01/31/2023 On singulairO n albuterol Does well Hyperlipidemia 66465140 E78.5 On rosuvastat in 40mg daily, has been not complaint with taking her statinGet labs Screening - NAD 67474317 3 Z13.9 C-scope: Done last year, in [facility] m: 03/11/19:D r Nessa Early 01/05/17, C-scope: To be done again in 7 yearsIs to get her C-scope 09/17/2024 , as per her history 08/25/2024 PAP: Did see Dr Robles and does well now Mammogram: Not doing this 08/25/2024 , do SBE DEXA: 09/05/2019 : Osteopenia , does ca and vit d Get yearly flu shot 04/19/2020 [facility] 04/19/2020 Can do shingles vaccineGet COVID 19 vaccine doneDo RSV vaccine RTC in 4 monthsGet labsER if worseShe and her did verbalize her understand ing of the above Thrombocyt openic disorder 077818127 D69.[address] Dover again Vitamin D deficiency 347 38526 E55.9 Screening mammography 24 330410 Z12.31 Ordered 09/13/2020 , 02/09/2021 , but she does not want to do thisAdvise d on SBE and notify if any symptoms occur or change Anemia 569074780 D64.9 Does wellGet labs Hypothyroidism 12183346 E03.9 Get labsGet US thyroid Screening for malignant neoplasm of colon 073842209 Z12.11 Screening for osteoporosis 368713550 Z13.820 Health Concerns Section Related Observation LastModified by Organization Detai ls LastModified Time None Recorded Concern Status LastModified by Organization Details LastModified Time None Recorded Advance Directives Directive N: Payers Encounter Date Sequence Insurance Name Policy Number Policy Liu Covered Member ID Liu Member ID Guarantor Name 09/05/2023 1 [facility] (O) [id number] Eve Floyd Austin [id number] [facility] 01/23/2024 1 [facility] ([facility] [id number] Eve Floyd Austin [id number] [facility] 05/28/2024 1 [facility] (O) [id number] Eve Floyd Austin [id number] [facility] 08/21/2024 2 [employer] (MEDICARE SUPPLEMENT) Eve Austin [id number] [facility] 08/21/2024 1 [place] Eve Floyd Austin [id number] Eve Austin 08/25/2024 2 [employer] (MEDICARE SUPPLEMENT) Eve [place] [id number] [facility] [place] Eve Yost [id number] Eve Yost Notes Date Note Type Note Provider Name and Address Organization Details Recorded Time 09/05/2023 text/html OV 02/26/19:Here to establish carePast PCP: Dr. Perez, last apt was 1.5 yearsPast Hx:AsthmaGERDReviewe d social family and surgical historyHere with her to discuss aboveFeels well OV 04/09/19:Here for URI sxSince 3-4 daysC/o cough, no fevers or chillsNo N/V or diarrheaNo blood in sputum or noseProductive cough yellowishNo headaches notedNo rashOV 08/27/2019Here for her routine aptShe did not do the labsShe has also not done her mammogram or DEXA or PAPShe states that she has been busy with her husbandShe does have some URI sx, of cough, non productiveNo fevers or chills, no chest pain or SOB or wheezingNo N/V or diarrheaOngoing since at least 1-2 weeksOV 04/19/2020:Here for her routine aptShe is doing wellHas not done the labsOV 09/13/2020:Here for her routine aptShe feels well She is here with her husbandNo recent labs since 04/2020 OV 02/09/2021:Here for her 4 month aptShe is doing wellDid do the labsHere with her OV 02/09/2021:Here for her routine aptShe is doing wellShe is here with MatNot yet done the labs OV 01/31/2023: Here for her routine apt, she is here with her , is doing well today, she did do the labs on 01/29/2023 OV 09/05/2022: Here for her routine apt, she did do the labs, non compliant with her meds, here with her Zuleika Denney MD [address] [place] [address], [facility] [address], [place], [address], [facility] [employer] 09/05/2023 16:53:00 01/23/2024 text/html OV 02/26/19:Here to establish carePast PCP: Dr. Perez, last apt was 1.5 yearsPast Hx:AsthmaGERDRevlatrellwe d social family and surgical historyHere with her to discuss aboveFeels well OV 04/09/19:Here for URI sxSince 3-4 daysC/o cough, no fevers or chillsNo N/V or diarrheaNo blood in sputum or noseProductive cough yellowishNo headaches notedNo rashOV 08/27/2019Here for her routine aptShe did not do the labsShe has also not done her mammogram or DEXA or PAPShe states that she has been busy with her husbandShe does have some URI sx, of cough, non productiveNo fevers or chills, no chest pain or SOB or wheezingNo N/V or diarrheaOngoing since at least 1-2 weeksOV 04/19/2020:Here for her routine aptShe is doing wellHas not done the labsOV 09/13/2020:Here for her routine aptShe feels well She is here with her husbandNo recent labs since 04/2020 OV 02/09/2021:Here for her 4 month aptShe is doing wellDid do the labsHere with her OV 02/09/2021:Here for her routine aptShe is doing wellShe is here with Ashley yet done the labs OV 01/31/2023: Here for her routine apt, she is here with her , is doing well today, she did do the labs on 01/29/2023 OV 09/05/2022: Here for her routine apt, she did do the labs, non compliant with her meds, here with her OV 01/23/2024: Here for her f/u apt, she is doing well today, she is here with her Zuleika Denney MD [address] [facility] [address], [place], [address], [facility] 02/10/2024 20:37:09 05/28/2024 text/html OV 02/26/19:Here to establish carePast PCP: Dr. Perez, last apt was 1.5 yearsPast Hx:AsthmaGERDRgianna d social family and surgical historyHere with her to discuss aboveFeels well OV 04/09/19:Here for URI sxSince 3-4 daysC/o cough, no fevers or chillsNo N/V or diarrheaNo blood in sputum or noseProductive cough yellowishNo headaches notedNo rashOV 08/27/2019Here for her routine aptShe did not do the labsShe has also not done her mammogram or DEXA or PAPShe states that she has been busy with her husbandShe does have some URI sx, of cough, non productiveNo fevers or chills, no chest pain or SOB or wheezingNo N/V or diarrheaOngoing since at least 1-2 weeksOV 04/19/2020:Here for her routine aptShe is doing wellHas not done the labsOV 09/13/2020:Here for her routine aptShe feels well She is here with her husbandNo recent labs since 04/2020 OV 02/09/2021:Here for her 4 month aptShe is doing wellDid do the labsHere with her OV 02/09/2021:Here for her routine aptShe is doing wellShe is here with MatLexis yet done the labs OV 01/31/2023: Here for her routine apt, she is here with her , is doing well today, she did do the labs on 01/29/2023 OV 09/05/2022: Here for her routine apt, she did do the labs, non compliant with her meds, here with her OV 01/23/2024: Here for her f/u apt, she is doing well today, she is here with her OV 05/28/2024: Here for her f/u apt, she is feels well today, she did do the labs, here with her Zuleika Denney MD [address] [facility] [address], [place], [address], [place] [employer] [place] [employer] 05/28/2024 18:36:10 08/25/2024 text/html OV 02/26/19:Here to establish carePast PCP: Dr. Perez, last apt was 1.5 yearsPast Hx:AsthmaGERDReviewe d social family and surgical historyHere with her to discuss aboveFeels well OV 04/09/19:Here for URI sxSince 3-4 daysC/o cough, no fevers or chillsNo N/V or diarrheaNo blood in sputum or noseProductive cough yellowishNo headaches notedNo rashOV 08/27/2019Here for her routine aptShe did not do the labsShe has also not done her mammogram or DEXA or PAPShe states that she has been busy with her husbandShe does have some URI sx, of cough, non productiveNo fevers or chills, no chest pain or SOB or wheezingNo N/V or diarrheaOngoing since at least 1-2 weeksOV 04/19/2020:Here for her routine aptShe is doing wellHas not done the labsOV 09/13/2020:Here for her routine aptShe feels well She is here with her husbandNo recent labs since 04/2020 OV 02/09/2021:Here for her 4 month aptShe is doing wellDid do the labsHere with her OV 02/09/2021:Here for her routine aptShe is doing wellShe is here with MatNot yet done the labs OV 01/31/2023: Here for her routine apt, she is here with her , is doing well today, she did do the labs on 01/29/2023 OV 09/05/2022: Here for her routine apt, she did do the labs, non compliant with her meds, here with her OV 01/23/2024: Here for her f/u apt, she is doing well today, she is here with her OV 05/28/2024: Here for her f/u apt, she is feels well today, she did do the labs, here with her OV 08/25/2024: Here for her f/u apt, she is here with her is doing well, has not yet done her c-scope, states that she has been helping with her 's medical issues Zuleika Denney MD [address] [place] [address], [facility] [address], [place], [address], [place] [employer] [place] [employer] 08/25/2024 14:15:19 OBGyn Episode No OBEpisode recorded.
[2024-09-08 16:26] LABS: Folic Acid 5.2 ng/mL (2.76->20)
[2024-09-11 22:53] LABS: Platelet Antibody, Direct NEGATIVE (NEGATIVE)
[2024-09-12 00:43] LABS: Methylmalonic Acid 194 nmol/L (69-390)
== END 2024-09-08 14:02 | disposition home or self-care (01) ==
LOC: ANHLAB 14:03
PROVIDERS: PCP Internal Medicine; Visit Provider Internal Medicine Hematology & Oncology
DX: D64.9 Anemia, unspecified (principal)
CPT/HCPCS: 36415; 80053; 82607; 82728; 82746; 83540; 83550; 83921; 84238; 85025; 86023

== ENCOUNTER 2024-09-23 08:56 | Outpatient (CLI) | payer MEDICARE, SELFPAY ==
--- NOTE | ~2024-09-23 | US_ITS ---
EXAM: ABDOMEN ULTRASOUND HISTORY: other secondary thrombocytopenia COMPARISON: 10/14/2019 FINDINGS: LIVER: The liver is unremarkable in echogenicity and size measuring 12.5cm in longitudinal dimension. The portal vein is patent, demonstrating hepatopedal flow. GALLBLADDER: No stones are identified within the gallbladder. No gallbladder wall thickening or pericholecystic fluid. BILE DUCTS: Common bile duct measures 2.3mm. PANCREAS: Limited evaluation of the pancreas secondary to overlying bowel gas SPLEEN: The spleen is unremarkable in echogenicity and size measuring 10.4cm in longitudinal dimensio n. RIGHT KIDNEY: 10.2 cm. In length. No hydronephrosis or bulky renal calculi. LEFT KIDNEY: 9.9cm in length. No hydronephrosis or renal calculi. VASCULATURE : The abdominal aorta is nonaneurysmal. The IVC is patent. IMPRESSION: Limited evaluation of the pancreas secondary to overlying bowel gas. Unremarkable sonographic evaluation of the abdomen, as detailed above. Reviewed, dictated and finalized at location A.
--- OUTSIDE RECORDS SUMMARY | 2024-09-23 09:34 | XMS_ITS | Data Portability ---
Author Organization [place] [facility], Main Office Address [address] [place] [address] Assessment Encounter Date Assessment Date Assessment LastModified by Organization Details LastModified Time 01/23/2024 01/23/2024 01/29/2023: VIT D 23.0 LDL [...] Details Appointments Follow Up 15 2024 10:00A Jesus alvarez MD Not available Not available Not available Lab lipid panel, serum [email or web address] (Lab), [address] [place], [address], 08/27/2024 10:00:01 CMP, serum or plasma 2024 025 SILVIO [facility] (Lab), [address] [place], [address], 09/09/2024 06:07:39 [facility] w/ auto [facility] [address] [place], [address], 09/09/2024 05:10:54 TSH + free T4, serum [email or web address] (Lab), [address] [place], [address], 08/27/2024 10:00:01 vitamin D, 25-hydrox y, total, serum [email or web address] (Lab), [address] [place], [address], 08/27/2024 10:00:01 TSH, serum or plasma 2024 [...] D, 25-hydrox y, total, serum 2023 024 [email or web address] Not available 07/24/2024 08:54:00 TSH, serum or [...] 2023 024 SILVIO Not available 02/27/2024 12:32:13 Referral hematolog ist referral - Please call patient to schedule an appointme nt. Thank you. 2024 025 SILVIO Dover MD, [address], [place], [address], 09/23/2024 04:25:42 hematolog ist referral 2023 024 SILVIO Dover MD, [address], [place], [address], 09/08/2024 17:02:01 Procedures colonosco py screening (PROC) - Please call patient to schedule an appointme nt. Thank you. 2024 025 [email or web address] Nessa Hallman MD, [facility] , [place], [address], 08/25/2024 18:10:35 colonosco py screening (PROC) - Please call patient to schedule. 2023 024 [email or web address] Nessa Hallman MD, [facility] , [place], [address], 08/19/2024 09:02:41 colonosco py screening (PROC) 2023 024 [email or web address] Not available 07/24/2024 08:53:51 Surgeries None recorded. Imaging DEXA, axial skeleton - Please call patient to schedule. [address], [facility]0 [facility] [address], [address], 08/25/2024 12:35:27 US, thyroid - Please call patient to schedule. [address] Radiology, [address] [place], [address], 08/25/2024 12:35:53 DEXA, axial skeleton - Please call patient to schedule. [address], [facility]0 [facility] [address] [place] [address], [id number], 09/01/2024 17:09:47 US, thyroid - Please call patient to schedule. [address] Radiology, [address] [place], [address], 06/30/2024 09:39:01 DEXA, axial skeleton [address], [address] , [place], [address], 05/28/2024 15:09:08 US, thyroid 2023 024 [facility], [address] [place] [address], [place], [address], 05/28/2024 15:09:17 Medication Orders cholecalc iferol (vitamin D3) 1,250 mcg (50,000 unit) capsule 2023 024 [email or web address] [id number], [address], [place], [id number], 08/25/2024 12:13:58 Patient TargetsNo targets recorded. Patient InstructionsNo instructions recorded. Reason for Referral Referring Physician: Zuleika Denney, Internal Medicine, Encounter Date: 05/28/2024 [facility] Thank you. Referring Physician: Zuleika Denney Internal Medicine, Encounter Date: 08/25/2024 Results Created Date Observation Date Name Description Value Unit Range Abnormal Flag Note LastModifiedBy Organization Detail LastModifiedTime 02/26/2002/26/2024 CBC/C OMPLE TE BLD COUNT W/DIF F white blood cells 5.6 x10'3 /uL 4.2-10 .8 Not Available [facility] (Lab) [address] [place], [address], 02/26/2024 14:32:57 02/26/20 24 02/26/2024 CBC/C OMPLE TE BLD COUNT W/DIF F red blood cells 4.18 x10'6 /uL 3.80-5 .20 Not Available [facility] (Lab) [address] [place], [address], 02/26/2024 14:32:57 02/26/20 24 02/26/2024 CBC/C OMPLE TE BLD COUNT W/DIF F hemoglobin 12.3 g/dL 12.0-1 5.6 Not Available [facility] (Lab) [address] [place], [address], 02/26/2024 14:32:57 02/26/20 24 02/26/2024 CBC/C OMPLE TE BLD COUNT W/DIF F hematocrit 38.6 % 35.7-4 5.7 Not Available [facility] (Lab) [address] [place], [address], 02/26/2024 14:32:57 02/26/20 24 02/26/2024 CBC/C OMPLE TE BLD COUNT W/DIF F mean red cell volume 92.3 fL 82.0-9 9.0 Not Available [facility] (Lab) [address] [place], [address], 02/26/2024 14:32:57 02/26/20 24 02/26/2024 CBC/C OMPLE TE BLD COUNT W/DIF F mean red cell hemoglobin 29.4 pg 27.0-3 3.0 Not Available [facility] (Lab) [address] [place], [address], 02/26/2024 14:32:57 02/26/20 24 02/26/2024 CBC/C OMPLE TE BLD COUNT W/DIF F mean RBC HGB concentratio n 31.9 g/dL 31.0-3 6.0 Not Available [facility] (Lab) [address] [place], [address], 02/26/2024 14:32:57 02/26/20 24 02/26/2024 CBC/C OMPLE TE BLD COUNT W/DIF F red cell distribution width 13.0 % 11.8-1 5.5 Not Available [facility] (Lab) [address] [place], [address], 02/26/2024 14:32:57 02/26/20 24 02/26/2024 CBC/C OMPLE TE BLD COUNT W/DIF F platelets 138 x10'3 /uL 150-40 0 low Not Available [facility] (Lab) [address] [place], [address], 02/26/2024 14:32:57 02/26/20 24 02/26/2024 CBC/C OMPLE TE BLD COUNT W/DIF F mean platelet volume 11.6 fL 9.0-12 .4 Not Available [facility] (Lab) [address] [place], [address], 02/26/2024 14:32:57 02/26/20 24 02/26/2024 CBC/C OMPLE TE BLD COUNT W/DIF F neutrophils 66.2 % 39.0-7 2.0 Not Available [facility] (Lab) [address] [place], [address], 02/26/2024 14:32:57 02/26/20 24 02/26/2024 CBC/C OMPLE TE BLD COUNT W/DIF F lymphocytes 20.9 % 16.0-4 7.0 Not Available [facility] (Lab) [address] [place], [address], 02/26/2024 14:32:57 02/26/20 24 02/26/2024 CBC/C OMPLE TE BLD COUNT W/DIF F monocytes 8.2 % 5.0-12 .0 Not Available [facility] (Lab) [address] [place], [address], 02/26/2024 14:32:57 02/26/20 24 02/26/2024 CBC/C OMPLE TE BLD COUNT W/DIF F eosinophils 3.2 % 1.0-7. 0 Not Available [facility] (Lab) [address] [place], [address], 02/26/2024 14:32:57 02/26/20 24 02/26/2024 CBC/C OMPLE TE BLD COUNT W/DIF F basophils 1.3 % 0.0-2. 0 Not Available [facility] (Lab) [address] [place], [address], 02/26/2024 14:32:57 02/26/20 24 02/26/2024 CBC/C OMPLE TE BLD COUNT W/DIF F immature granulocytes 0.2 % 0.00-0 .50 Not Available [facility] (Lab) [address] [place], [address], 02/26/2024 14:32:57 02/26/20 24 02/26/2024 CBC/C OMPLE TE BLD COUNT W/DIF F neutrophils, absolute count 3.70 x10'3 /uL 1.5-8. 0 Not Available [facility] (Lab) [address] [place], [address], 02/26/2024 14:32:57 02/26/20 24 02/26/2024 CBC/C OMPLE TE BLD COUNT W/DIF F lymphocytes, absolute count 1.17 x10'3 /uL 1.07-3 .43 Not Available [facility] (Lab) [address] [place], [address], 02/26/2024 14:32:57 02/26/20 24 02/26/2024 CBC/C OMPLE TE BLD COUNT W/DIF F monocytes, absolute count 0.46 x10'3 /uL 0.29-0 .99 Not Available [facility] (Lab) [address] [place], [address], 02/26/2024 14:32:57 02/26/20 24 02/26/2024 CBC/C OMPLE TE BLD COUNT W/DIF F eosinophils, absolute count 0.18 x10'3 /uL 0.02-0 .53 Not Available [facility] (Lab) [address] [place], [address], 02/26/2024 14:32:57 02/26/20 24 02/26/2024 CBC/C OMPLE TE BLD COUNT W/DIF F basophils, absolute count 0.07 x10'3 /uL 0.01-0 .08 Not Available [facility] (Lab) [address] [place], [address], 02/26/2024 14:32:57 02/26/20 24 02/26/2024 CBC/C OMPLE TE BLD COUNT W/DIF F immature granulocytes ,absolute 0.01 x10'3 /uL 0.00-0 .05 Not Available [facility] (Lab) [address] [place], [address], 02/26/2024 14:32:57 02/26/20 24 02/26/2024 CBC/C OMPLE TE BLD COUNT W/DIF F nucleated red blood cells 0.0 % -0 Not Available [facility] (Lab) [address] [place], [address], 02/26/2024 14:32:57 02/26/20 24 02/26/2024 CBC/C OMPLE TE BLD COUNT W/DIF F NRBC# 0.00 x10'3 /uL Not Available [facility] (Lab) [address] [place], [address], 02/26/2024 14:32:57 02/26/20 24 02/26/2024 CBC/C OMPLE TE BLD COUNT W/DIF F plt clum OCCASI ONAL Not Available [facility] (Lab) [address] [place], [address], 02/26/2024 14:32:57 02/26/20 24 02/26/2024 LIPID PANEL cholesterol 223 mg/dL 140-19 9 high [facility] KELLY NSUS RECOM MENDA TION FOR RADHA STERO L: ADULT CHILD LOW RISK: <200 <170 BORDE RLINE : <200- 239 ----- HIGH RISK: >240 >200 Not Available [facility] (Lab) [address] [place], [address], 02/26/2024 16:19:01 02/26/20 24 02/26/2024 LIPID PANEL triglyceride s 53 mg/dL 0-150 NIH KELLY NSUS REPOR T RECOM MENDA TION FOR TRIGL YCERI GRACE: ADULT CHILD LOW RISK: <150 ----- BODER LINE: 150-1 99 ----- HIGH RISK: >200 ----- Not Available [facility] (Lab) [address] [place], [address], 02/26/2024 16:19:01 02/26/20 24 02/26/2024 LIPID PANEL HDL cholesterol 89 mg/dL 40- Not Available [facility] (Lab) [address] [place], [address], 02/26/2024 16:19:01 02/26/20 24 02/26/2024 LIPID PANEL LDL cholesterol, calculated 123 mg/dL 0-130 NIH KELLY NSUS REPOR T RECOM MENDA TIONS FOR LDL: ADULT CHILD LOW RISK <130 <110 (OPTI MAL LDL) <100 ----- ESTUARDODE RLINE : 130-1 59 ----- HIGH RISK: >160 >130 A TRIGL YCERI DE RESUL T >400 INVAL IDATE S THE CALCU LATIO N FOR LDL FRACT IONAT ION - THE LDL RESUL T WILL NOT BE REPOR EH. Not Available [facility] (Lab) [address] [place], [address], 02/26/2024 16:19:01 02/26/20 24 02/26/2024 COMPR EHENS SONG METAB OLIC PANEL sodium 137 mmol/ L 137-14 5 Not Available [facility] (Lab) [address] [place], [address], 02/26/2024 16:19:31 02/26/20 24 02/26/2024 COMPR EHENS SONG METAB OLIC PANEL potassium 4.2 mmol/ L 3.5-5. 1 Not Available [facility] (Lab) [address] [place], [address], 02/26/2024 16:19:31 02/26/20 24 02/26/2024 COMPR EHENS SONG METAB OLIC PANEL chloride 107 mmol/ L 98-107 Not Available [facility] (Lab) [address] [place], [address], 02/26/2024 16:19:31 02/26/20 24 02/26/2024 COMPR EHENS SONG METAB OLIC PANEL carbon dioxide 28 mmol/ L 22-30 Not Available [facility] (Lab) [address] [place], [address], 02/26/2024 16:19:31 02/26/20 24 02/26/2024 COMPR EHENS SONG METAB OLIC PANEL anion gap 6.2 mmol/ L 14-22 low Not Available [facility] (Lab) [address] [place], [address], 02/26/2024 16:19:31 02/26/20 24 02/26/2024 COMPR EHENS SONG METAB OLIC PANEL glucose 85 mg/dL 70-99 Not Available [facility] (Lab) [address] [place], [address], 02/26/2024 16:19:31 02/26/20 24 02/26/2024 COMPR EHENS SONG METAB OLIC PANEL BUN 16 mg/dL 8-19 Not Available [facility] (Lab) [address] [place], [address], 02/26/2024 16:19:31 02/26/20 24 02/26/2024 COMPR EHENS SONG METAB OLIC PANEL creatinine 0.81 mg/dL 0.66-1 .25 Not Available [facility] (Lab) [address] [place], [address], 02/26/2024 16:19:31 02/26/20 24 02/26/2024 COMPR EHENS SONG METAB OLIC PANEL GFR >60 Refer ence Range : [place] ge GFR Healt hy Adult : >60 [...] or ethni c subgr oups, such as Hispa nics. Outsi de the valid ated giancarlo [...] calcu lator is avail able on the [facility] websi te: [email or web address]/kdo qi/gf r_cal culat or Not Available [facility] (Lab) [address] [place], [address], 02/26/2024 16:19:31 02/26/20 24 02/26/2024 COMPR EHENS SONG METAB OLIC PANEL alkaline phosphatase 81 U/L 38-126 Not Available [facility] (Lab) [address] [place], [address], 02/26/2024 16:19:31 02/26/20 24 02/26/2024 COMPR EHENS SONG METAB OLIC PANEL alanine aminotransfe rase 27 U/L 0-35 Not Available [facility] (Lab) [address] [place], [address], 02/26/2024 16:19:31 02/26/20 24 02/26/2024 COMPR EHENS SONG METAB OLIC PANEL aspartate aminotransfe rase 31 U/L 15-37 Not Available [facility] (Lab) [address] [place], [address], 02/26/2024 16:19:31 02/26/20 24 02/26/2024 COMPR EHENS SONG METAB OLIC PANEL bilirubin, total 0.80 mg/dL 0.20-1 .30 Not Available [facility] (Lab) [address] [place], [address], 02/26/2024 16:19:31 02/26/20 24 02/26/2024 COMPR EHENS SONG METAB OLIC PANEL calcium 9.2 mg/dL 8.4-10 .2 Not Available [facility] (Lab) [address] [place], [address], 02/26/2024 16:19:31 02/26/20 24 02/26/2024 COMPR EHENS SONG METAB OLIC PANEL total protein 7.6 g/dL 6.3-8. 2 Not Available [facility] (Lab) [address] [place], [address], 02/26/2024 16:19:31 02/26/20 24 02/26/2024 COMPR EHENS SONG METAB OLIC PANEL albumin 4.3 g/dL 3.0-4. 4 Not Available [facility] (Lab) [address] [place], [address], 02/26/2024 16:19:31 02/26/20 24 02/26/2024 COMPR EHENS SONG METAB OLIC PANEL globulin 3.3 g/dL 2.6-4. 2 Not Available [facility] (Lab) [address] [place], [address], 02/26/2024 16:19:31 02/26/20 24 02/26/2024 COMPR EHENS SONG METAB OLIC PANEL A/G ratio 1.3 ratio 1.0-2. 0 Not Available [facility] (Lab) [address] [place], [address], 02/26/2024 16:19:31 02/26/20 24 02/26/2024 T4 FREE free T4 0.89 NG/dL 0.78-2 .19 Not Available [facility] (Lab) [address] [place], [address], 02/26/2024 16:26:01 02/26/20 24 02/26/2024 VITAM IN D 25-HY DROXY [id number] 34.3 NG/mL 30-100 Vitam in D Statu s: Defic ient: <20 ng/mL Insuf ficie nt: 20-29 ng/mL Suffi cient : 30-10 0 ng/mL Not Available [facility] (Lab) [address] [place], [address], 02/26/2024 16:30:41 02/26/20 24 02/26/2024 TSH thyroid-stim ulating hormone 5.730 uIU/m L 0.465- 4.680 high Not Available [facility] (Lab) [address] [place], [address], 02/26/2024 16:46:01 05/26/20 24 05/26/2024 CBC/C OMPLE TE BLD COUNT W/DIF F white blood cells 5.8 x10'3 /uL 4.2-10 .8 Not Available [facility] (Lab) [address] [place], [address], 05/26/2024 18:35:30 05/26/20 24 05/26/2024 CBC/C OMPLE TE BLD COUNT W/DIF F red blood cells 4.17 x10'6 /uL 3.80-5 .20 Not Available [facility] (Lab) [address] [place], [address], 05/26/2024 18:35:30 05/26/20 24 05/26/2024 CBC/C OMPLE TE BLD COUNT W/DIF F hemoglobin 12.4 g/dL 12.0-1 5.6 Not Available [facility] (Lab) [address] [place], [address], 05/26/2024 18:35:30 05/26/20 24 05/26/2024 CBC/C OMPLE TE BLD COUNT W/DIF F hematocrit 38.6 % 35.7-4 5.7 Not Available [facility] (Lab) [address] [place], [address], 05/26/2024 18:35:30 05/26/20 24 05/26/2024 CBC/C OMPLE TE BLD COUNT W/DIF F mean red cell volume 92.6 fL 82.0-9 9.0 Not Available [facility] (Lab) [address] [place], [address], 05/26/2024 18:35:30 05/26/20 24 05/26/2024 CBC/C OMPLE TE BLD COUNT W/DIF F mean red cell hemoglobin 29.7 pg 27.0-3 3.0 Not Available [facility] (Lab) [address] [place], [address], 05/26/2024 18:35:30 05/26/20 24 05/26/2024 CBC/C OMPLE TE BLD COUNT W/DIF F mean RBC HGB concentratio n 32.1 g/dL 31.0-3 6.0 Not Available [facility] (Lab) [address] [place], [address], 05/26/2024 18:35:30 05/26/20 24 05/26/2024 CBC/C OMPLE TE BLD COUNT W/DIF F red cell distribution width 12.6 % 11.8-1 5.5 Not Available [facility] (Lab) [address] [place], [address], 05/26/2024 18:35:30 05/26/20 24 05/26/2024 CBC/C OMPLE TE BLD COUNT W/DIF F platelets 123 x10'3 /uL 150-40 0 low Not Available [facility] (Lab) [address] [place], [address], 05/26/2024 18:35:30 05/26/20 24 05/26/2024 CBC/C OMPLE TE BLD COUNT W/DIF F mean platelet volume 11.4 fL 9.0-12 .4 Not Available [facility] (Lab) [address] [place], [address], 05/26/2024 18:35:30 05/26/20 24 05/26/2024 CBC/C OMPLE TE BLD COUNT W/DIF F neutrophils 67.3 % 39.0-7 2.0 Not Available [facility] (Lab) [address] [place], [address], 05/26/2024 18:35:30 05/26/20 24 05/26/2024 CBC/C OMPLE TE BLD COUNT W/DIF F lymphocytes 20.0 % 16.0-4 7.0 Not Available [facility] (Lab) [address] [place], [address], 05/26/2024 18:35:30 05/26/20 24 05/26/2024 CBC/C OMPLE TE BLD COUNT W/DIF F monocytes 9.0 % 5.0-12 .0 Not Available [facility] (Lab) [address] [place], [address], 05/26/2024 18:35:30 05/26/20 24 05/26/2024 CBC/C OMPLE TE BLD COUNT W/DIF F eosinophils 2.6 % 1.0-7. 0 Not Available [facility] (Lab) [address] [place], [address], 05/26/2024 18:35:30 05/26/20 24 05/26/2024 CBC/C OMPLE TE BLD COUNT W/DIF F basophils 0.9 % 0.0-2. 0 Not Available [facility] (Lab) [address] [place], [address], 05/26/2024 18:35:30 05/26/20 24 05/26/2024 CBC/C OMPLE TE BLD COUNT W/DIF F immature granulocytes 0.2 % 0.00-0 .50 Not Available [facility] (Lab) [address] [place], [address], 05/26/2024 18:35:30 05/26/20 24 05/26/2024 CBC/C OMPLE TE BLD COUNT W/DIF F neutrophils, absolute count 3.90 x10'3 /uL 1.5-8. 0 Not Available [facility] (Lab) [address] [place], [address], 05/26/2024 18:35:30 05/26/20 24 05/26/2024 CBC/C OMPLE TE BLD COUNT W/DIF F lymphocytes, absolute count 1.16 x10'3 /uL 1.07-3 .43 Not Available [facility] (Lab) [address] [place], [address], 05/26/2024 18:35:30 05/26/20 24 05/26/2024 CBC/C OMPLE TE BLD COUNT W/DIF F monocytes, absolute count 0.52 x10'3 /uL 0.29-0 .99 Not Available [facility] (Lab) [address] [place], [address], 05/26/2024 18:35:30 05/26/20 24 05/26/2024 CBC/C OMPLE TE BLD COUNT W/DIF F eosinophils, absolute count 0.15 x10'3 /uL 0.02-0 .53 Not Available [facility] (Lab) [address] [place], [address], 05/26/2024 18:35:30 05/26/20 24 05/26/2024 CBC/C OMPLE TE BLD COUNT W/DIF F basophils, absolute count 0.05 x10'3 /uL 0.01-0 .08 Not Available [facility] (Lab) [address] [place], [address], 05/26/2024 18:35:30 05/26/20 24 05/26/2024 CBC/C OMPLE TE BLD COUNT W/DIF F immature granulocytes ,absolute 0.01 x10'3 /uL 0.00-0 .05 Not Available [facility] (Lab) [address] [place], [address], 05/26/2024 18:35:30 05/26/20 24 05/26/2024 CBC/C OMPLE TE BLD COUNT W/DIF F nucleated red blood cells 0.0 % -0 Not Available [facility] (Lab) [address] [place], [address], 05/26/2024 18:35:30 05/26/20 24 05/26/2024 CBC/C OMPLE TE BLD COUNT W/DIF F NRBC# 0.00 x10'3 /uL Not Available [facility] (Lab) [address] [place], [address], 05/26/2024 18:35:30 05/26/20 24 05/26/2024 LIPID PANEL cholesterol 217 mg/dL 140-19 9 high NIH KELLY NSUS RECOM MENDA TION FOR RADHA STERO L: ADULT CHILD LOW RISK: <200 <170 BORDE RLINE : <200- 239 ----- HIGH RISK: >240 >200 Not Available [facility] (Lab) [address] [place], [address], 05/26/2024 18:53:44 05/26/20 24 05/26/2024 LIPID PANEL triglyceride s 52 mg/dL 0-150 NIH KELLY NSUS REPOR T RECOM MENDA TION FOR TRIGL YCERI GRACE: ADULT CHILD LOW RISK: <150 ----- BODER LINE: 150-1 99 ----- HIGH RISK: >200 ----- Not Available [facility] (Lab) [address] [place], [address], 05/26/2024 18:53:44 05/26/20 24 05/26/2024 LIPID PANEL HDL cholesterol 83 mg/dL 40- Not Available [facility] (Lab) [address] [place], [address], 05/26/2024 18:53:44 05/26/20 24 05/26/2024 LIPID PANEL LDL cholesterol, calculated 124 mg/dL 0-130 NIH KELLY NSUS REPOR T RECOM MENDA TIONS FOR LDL: ADULT CHILD LOW RISK <130 <110 (OPTI MAL LDL) <100 ----- ESTUARDODE RLINE : 130-1 59 ----- HIGH RISK: >160 >130 A TRIGL YCERI DE RESUL T >400 INVAL IDATE S THE CALCU LATIO N FOR LDL FRACT IONAT ION - THE LDL RESUL T WILL NOT BE REPOR EH. Not Available [facility] (Lab) [address] [place], [address], 05/26/2024 18:53:44 05/26/20 24 05/26/2024 COMPR EHENS SONG METAB OLIC PANEL sodium 138 mmol/ L 137-14 5 Not Available [facility] (Lab) [address] [place], [address], 05/26/2024 18:53:59 05/26/20 24 05/26/2024 COMPR EHENS SONG METAB OLIC PANEL potassium 4.2 mmol/ L 3.5-5. 1 Not Available [facility] (Lab) [address] [place], [address], 05/26/2024 18:53:59 05/26/20 24 05/26/2024 COMPR EHENS SONG METAB OLIC PANEL chloride 106 mmol/ L 98-107 Not Available [facility] (Lab) [address] [place], [address], 05/26/2024 18:53:59 05/26/20 24 05/26/2024 COMPR EHENS SONG METAB OLIC PANEL carbon dioxide 28 mmol/ L 22-30 Not Available [facility] (Lab) [address] [place], [address], 05/26/2024 18:53:59 05/26/20 24 05/26/2024 COMPR EHENS SONG METAB OLIC PANEL anion gap 8.2 mmol/ L 14-22 low Not Available [facility] (Lab) [address] [place], [address], 05/26/2024 18:53:59 05/26/20 24 05/26/2024 COMPR EHENS SONG METAB OLIC PANEL glucose 90 mg/dL 70-99 Not Available [facility] (Lab) [address] [place], [address], 05/26/2024 18:53:59 05/26/20 24 05/26/2024 COMPR EHENS SONG METAB OLIC PANEL BUN 13 mg/dL 8-19 Not Available [facility] (Lab) [address] [place], [address], 05/26/2024 18:53:59 05/26/20 24 05/26/2024 COMPR EHENS SONG METAB OLIC PANEL creatinine 0.78 mg/dL 0.66-1 .25 Not Available [facility] (Lab) [address] [place], [address], 05/26/2024 18:53:59 05/26/20 24 05/26/2024 COMPR EHENS SONG METAB OLIC PANEL GFR >60 Refer ence Range : [place] ge GFR Healt hy Adult : >60 [...] or ethni c subgr oups, such as Hispa nics. Outsi de the valid ated giancarlo [...] calcu lator is avail able on the [facility] websi te: [email or web address] or Not Available [facility] (Lab) [address] [place], [address], 05/26/2024 18:53:59 05/26/20 24 05/26/2024 COMPR EHENS SONG METAB OLIC PANEL alkaline phosphatase 88 U/L 38-126 Not Available [facility] (Lab) [address] [place], [address], 05/26/2024 18:53:59 05/26/20 24 05/26/2024 COMPR EHENS SONG METAB OLIC PANEL alanine aminotransfe rase 25 U/L 0-35 Not Available [facility] (Lab) [address] [place], [address], 05/26/2024 18:53:59 05/26/20 24 05/26/2024 COMPR EHENS SONG METAB OLIC PANEL aspartate aminotransfe rase 33 U/L 15-37 Not Available [facility] (Lab) [address] [place], [address], 05/26/2024 18:53:59 05/26/20 24 05/26/2024 COMPR EHENS SONG METAB OLIC PANEL bilirubin, total 0.70 mg/dL 0.20-1 .30 Not Available [facility] (Lab) [address] [place], [address], 05/26/2024 18:53:59 05/26/20 24 05/26/2024 COMPR EHENS SONG METAB OLIC PANEL calcium 9.3 mg/dL 8.4-10 .2 Not Available [facility] (Lab) [address] [place], [address], 05/26/2024 18:53:59 05/26/20 24 05/26/2024 COMPR EHENS SONG METAB OLIC PANEL total protein 7.4 g/dL 6.3-8. 2 Not Available [facility] (Lab) [address] [place], [address], 05/26/2024 18:53:59 05/26/20 24 05/26/2024 COMPR EHENS SONG METAB OLIC PANEL albumin 4.3 g/dL 3.0-4. 4 Not Available [facility] (Lab) [address] [place], [address], 05/26/2024 18:53:59 05/26/20 24 05/26/2024 COMPR EHENS SONG METAB OLIC PANEL globulin 3.1 g/dL 2.6-4. 2 Not Available [facility] (Lab) [address] [place], [address], 05/26/2024 18:53:59 05/26/20 24 05/26/2024 COMPR EHENS SONG METAB OLIC PANEL A/G ratio 1.4 ratio 1.0-2. 0 Not Available [facility] (Lab) [address] [place], [address], 05/26/2024 18:53:59 05/26/20 24 05/26/2024 T4 FREE free T4 0.96 NG/dL 0.78-2 .19 Not Available [facility] (Lab) [address] [place], [address], 05/26/2024 19:13:28 05/26/20 24 05/26/2024 VITAM IN D 25-HY DROXY [id number] 26.0 NG/mL 30-100 low Vitam in D Statu s: Defic ient: <20 ng/mL Insuf ficie nt: 20-29 ng/mL Suffi cient : 30-10 0 ng/mL Not Available [facility] (Lab) [address] [place], [address], 05/26/2024 19:13:34 05/26/20 24 05/26/2024 TSH thyroid-stim ulating hormone 3.840 uIU/m L 0.465- 4.680 Not Available [facility] (Lab) [address] [place], [address], 05/26/2024 19:24:21 08/21/19 25 08/23/2024 TSH+F REE T4 TSH 6.840 uIU/m L 0.450- 4.500 above high normal Not Available [facility] ([facility]) [address] [place], [address], 08/23/2024 09:38:58 08/21/19 25 08/23/2024 TSH+F REE T4 T4,free(dire ct) 1.12 NG/dL 0.82-1 .77 normal Not Available [facility] ([facility]) [address] [facility], [place], [address], 08/23/2024 09:38:58 08/21/19 25 08/23/2024 CBC WITH DIFFE RENTI AL/PL ATELE T WBC 4.9 x10e3 /uL 3.4-10 .8 normal Not Available [facility] ([facility]) [address] [place], [address], 08/23/2024 09:38:59 08/21/19 25 08/23/2024 CBC WITH DIFFE RENTI AL/PL ATELE T RBC 4.24 x10e6 /uL 3.77-5 .28 normal Not Available [facility] ([facility]) [address] [place], [address], 08/23/2024 09:38:59 08/21/19 25 08/23/2024 CBC WITH DIFFE RENTI AL/PL ATELE T hemoglobin 12.3 g/dL 11.1-1 5.9 normal Not Available [facility] ([facility]) [address] [place], [address], 08/23/2024 09:38:59 08/21/19 25 08/23/2024 CBC WITH DIFFE RENTI AL/PL ATELE T hematocrit 38.1 % 34.0-4 6.6 normal Not Available [facility] ([facility]) [address] [place], [address], 08/23/2024 09:38:59 08/21/19 25 08/23/2024 CBC WITH DIFFE RENTI AL/PL ATELE T MCV 90 fL 79-97 normal Not Available [facility] ([facility]) [address] [place], [address], 08/23/2024 09:38:59 08/21/19 25 08/23/2024 CBC WITH DIFFE RENTI AL/PL ATELE T MCH 29.0 pg 26.6-3 3.0 normal Not Available [facility] ([facility]) [address] [place], [address], 08/23/2024 09:38:59 08/21/19 25 08/23/2024 CBC WITH DIFFE RENTI AL/PL ATELE T MCHC 32.3 g/dL 31.5-3 5.7 normal Not Available [facility] ([facility]) [address] [facility], [place], [address], 08/23/2024 09:38:59 08/21/19 25 08/23/2024 CBC WITH DIFFE RENTI AL/PL ATELE T RDW 12.2 % 11.7-1 5.4 Not Available [facility] ([facility]) [address] [facility], [place], [address], 08/23/2024 09:38:59 08/21/19 25 08/23/2024 CBC WITH DIFFE RENTI AL/PL ATELE T platelets TNP x10e3 /uL Unabl e to perfo rm an accur ate plate let count due to aggre gatio n of the plate lets. Not Available [facility] ([facility]) [address] [place], [address], 08/23/2024 09:38:59 08/21/19 25 08/23/2024 CBC WITH DIFFE RENTI AL/PL ATELE T neutrophils 60 % not estab. normal Not Available [facility] ([facility]) [address] [facility], [place], [address], 08/23/2024 09:38:59 08/21/19 25 08/23/2024 CBC WITH DIFFE RENTI AL/PL ATELE T lymphs 26 % not estab. normal Not Available [facility] ([facility]) [address] [facility], [place], [address], 08/23/2024 09:38:59 08/21/19 25 08/23/2024 CBC WITH DIFFE RENTI AL/PL ATELE T monocytes 10 % not estab. normal Not Available [facility] ([facility]) [address] [place], [address], 08/23/2024 09:38:59 08/21/19 25 08/23/2024 CBC WITH DIFFE RENTI AL/PL ATELE T eos 3 % not estab. normal Not Available [facility] ([facility]) [address] [place], [address], 08/23/2024 09:38:59 08/21/19 25 08/23/2024 CBC WITH DIFFE RENTI AL/PL ATELE T basos 1 % not estab. 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 0 normal Not Available [facility] ([facility]) [address] [place], [address], 08/23/2024 09:38:59 08/21/19 25 08/23/2024 CBC WITH DIFFE RENTI AL/PL ATELE T lymphs (absolute) 1.3 x10e3 /uL 0.7-3. 1 normal Not Available [facility] ([facility]) [address] [place], [address], 08/23/2024 09:38:59 08/21/19 25 08/23/2024 CBC WITH DIFFE RENTI AL/PL ATELE T monocytes(ab solute) 0.5 x10e3 /uL 0.1-0. 9 normal Not Available [facility] ([facility]) [address] [facility], [place], [address], 08/23/2024 09:38:59 08/21/19 25 08/23/2024 CBC WITH DIFFE RENTI AL/PL ATELE T eos (absolute) 0.1 x10e3 /uL 0.0-0. 4 normal Not Available [facility] ([facility]) [address] [facility], [place], [address], 08/23/2024 09:38:59 08/21/19 25 08/23/2024 CBC WITH DIFFE RENTI AL/PL ATELE T baso (absolute) 0.0 x10e3 /uL 0.0-0. 2 normal Not Available [facility] ([facility]) [address] [facility], [place], [address], 08/23/2024 09:38:59 08/21/19 25 08/23/2024 CBC WITH DIFFE RENTI AL/PL ATELE T immature granulocytes 0 % not estab. Not Available [facility] ([facility]) [address] [facility], [place], [address], 08/23/2024 09:38:59 08/21/19 25 08/23/2024 CBC WITH DIFFE RENTI AL/PL ATELE T immature grans (abs) 0.0 x10e3 /uL 0.0-0. 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 Cellu elidia jara on Noted . Not Available [facility] ([facility]) [address] [place], [address], 08/23/2024 09:38:59 08/21/19 25 08/23/2024 COMP. METAB OLIC PANEL (14) glucose 80 mg/dL 70-99 normal Not Available [facility] ([facility]) [address] [place], [address], 08/23/2024 09:39:00 08/21/19 25 08/23/2024 COMP. METAB OLIC PANEL (14) BUN 14 mg/dL 8-27 normal Not Available [facility] ([facility]) [address] [place], [address], 08/23/2024 09:39:00 08/21/19 25 08/23/2024 COMP. METAB OLIC PANEL (14) creatinine 0.88 mg/dL 0.57-1 .00 normal Not Available [facility] ([facility]) [address] [place], [address], 08/23/2024 09:39:00 08/21/19 25 08/23/2024 COMP. METAB OLIC PANEL (14) eGFR 68 mL/mi n/1.7 3 >59 normal Not Available [facility] ([facility]) [address] [place], [address], 08/23/2024 09:39:00 08/21/19 25 08/23/2024 COMP. METAB OLIC PANEL (14) BUN/creatini ne ratio 16 12-28 normal Not Available [facility] ([facility]) [address] [place], [address], 08/23/2024 09:39:00 08/21/19 25 08/23/2024 COMP. METAB OLIC PANEL (14) sodium 137 mmol/ L 134-14 4 normal Not Available [facility] ([facility]) [address] [place], [address], 08/23/2024 09:39:00 08/21/19 25 08/23/2024 COMP. METAB OLIC PANEL (14) potassium 4.0 mmol/ L 3.5-5. 2 normal Not Available [facility] ([facility]) [address] [place], [address], 08/23/2024 09:39:00 08/21/19 25 08/23/2024 COMP. METAB OLIC PANEL (14) chloride 100 mmol/ L 96-106 normal Not Available [facility] ([facility]) [address] [place], [address], 08/23/2024 09:39:00 08/21/19 25 08/23/2024 COMP. METAB OLIC PANEL (14) carbon dioxide, total 25 mmol/ L 20-29 normal Not Available [facility] ([facility]) [address] [place], [address], 08/23/2024 09:39:00 08/21/19 25 08/23/2024 COMP. METAB OLIC PANEL (14) calcium 9.3 mg/dL 8.7-10 .3 normal Not Available [facility] ([facility]) [address] [place], [address], 08/23/2024 09:39:00 08/21/19 25 08/23/2024 COMP. METAB OLIC PANEL (14) protein, total 7.6 g/dL 6.0-8. 5 normal Not Available [facility] ([facility]) [address] [place], [address], 08/23/2024 09:39:00 08/21/19 25 08/23/2024 COMP. METAB OLIC PANEL (14) albumin 4.5 g/dL 3.8-4. 8 normal Not Available [facility] ([facility]) [address] [facility] [place], [address], 08/23/2024 09:39:00 08/21/19 25 08/23/2024 COMP. METAB OLIC PANEL (14) globulin, total 3.1 g/dL 1.5-4. 5 Not Available [facility] ([facility]) [address] [facility] [place], [address], 08/23/2024 09:39:00 08/21/19 25 08/23/2024 COMP. METAB OLIC PANEL (14) bilirubin, total 0.6 mg/dL 0.0-1. 2 normal Not Available [facility] ([facility]) [address] [facility] [place], [address], 08/23/2024 09:39:00 08/21/19 25 08/23/2024 COMP. METAB OLIC PANEL (14) alkaline phosphatase 99 IU/L 44-121 normal Not Available [facility] ([facility]) [address] [facility] [place], [address], 08/23/2024 09:39:00 08/21/19 25 08/23/2024 COMP. METAB OLIC PANEL (14) AST (SGOT) 15 IU/L 0-40 normal Not Available [facility] ([facility]) [address] [facility] [place], [address], 08/23/2024 09:39:00 08/21/19 25 08/23/2024 COMP. METAB OLIC PANEL (14) ALT (SGPT) 13 IU/L 0-32 normal Not Available [facility] ([facility]) [address] [facility] [place], [address], 08/23/2024 09:39:00 08/21/19 25 08/23/2024 LIPID PANEL cholesterol, total 215 mg/dL 100-19 9 above high normal Not Available [facility] ([facility]) [address] [facility] [place], [address], 08/23/2024 09:39:01 08/21/19 25 08/23/2024 LIPID PANEL triglyceride s 62 mg/dL 0-149 normal Not Available [facility] ([facility]) [address] [place], [address], 08/23/2024 09:39:01 08/21/19 25 08/23/2024 LIPID PANEL HDL cholesterol 65 mg/dL >39 normal Not Available [facility] ([facility]) [address] [place], [address], 08/23/2024 09:39:01 08/21/19 25 08/23/2024 LIPID PANEL VLDL cholesterol akira 11 mg/dL 5-40 Not Available [facility] ([facility]) [address] [place], [address], 08/23/2024 09:39:01 08/21/19 25 08/23/2024 LIPID PANEL LDL chol calc ([facility]) 139 mg/dL 0-99 above high normal Not Available [facility] ([facility]) [address] [facility] [place], [address], 08/23/2024 09:39:01 08/21/1908/23/2024 LIPID PANEL 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 The Endoc rine Socie ty went on to furth er defin e vitam in D insuf ficie ncy as a level betwe en 21 and 29 ng/mL (2). 1. IOM (Inst itute of Medic ine). 2010. Dieta ry refer ence intak es for calci um and D. Gerber lowe [place]: [facility] . 2. Maribell fernández MF, [place], Smita off-F paulette i CORTEZ, et al. Evalu ation , treat ment, and preve ntion of vitam in D defic iency : an Endoc rine Socie ty clini akira pract ice guide line. JCEM. 2010; 96(7) :1911 -30. Not Available [facility] ([facility]) [address] [facility], [place], [address], 08/23/2024 09:39:03 Result Notes None recorded. Problems Name Problem SNOMED Code Status Onset Date Resolution Date Notes Provider Name and Address Organization Details Recorded Time Acute sinusitis 88609021 Active 2021 Not Available [facility] 3 00:48:21 Vitamin D deficiency 91250546 Active 2022 Kristine Bruno RN [facility], [place] [employer] [facility] [employer] [facility] 3 09:40:41 Asthma 085372081 Active 2022 Zuleika slater MD [address], [place] [address], [place], [address] , [employer] [facility] 3 10:32:48 Thrombocytope tino disorder 702437404 Active 2022 Zuleika slater MD [address], [place], [address] , [employer] 3 10:32:57 Hyperlipidemi a 81654488 Active 2022 Zuleika slater MD [address], [place], [address] , [employer] [facility] [employer] [facility] 3 10:33:00 Deficiency of vitamin D2 677521012 Active 2022 Zuleika slater MD [address], [place], [address] , [employer] 3 10:33:06 Anemia 903336371 Active 2022 Zuleika slater MD [address], [place], [address] , [employer] 3 11:04:29 Hypothyroidis m 54661667 Active 2023 Zuleika slater MD [address], [place], [address] , [employer] 4 10:38:35 Cough 56303035 Active 2024 ADIA Rodríguez, [employer] 5 15:21:49 Allergic reaction 750168857 Active 2024 Zuleika slater MD [address] [facility], [address], [place], [address] , [employer] 5 18:39:17 Problem Notes None recorded. Procedures Surgical History Date Name Laterality Status Provider Name and Address Organization Details Recorded Time procedure on wrist completed Not Available [facility] 09/13/2022 00:43:48 Imaging Results None recorded. Procedure Notes None recorded. Medical Equipment None Reported. Allergies Allergen ID Allergen Name Allergen Category Reaction Reaction Severity Criticality Documentation Date Start Date Code Code System Note Provider Name and Address Organization Details Recorded Time 602 titanium Not available Not available Not available Not available 09/13/2022 13282 47 RxNorm Not Available [facility] 3 00:53:36 603 Compazine medicatio n Not available Not available Not available 09/13/2022 38126 6 RxNorm Not Available [facility] 3 00:53:36 24321 Product containin g hydrogen/ potassium adenosine triphosph atase enzyme system inhibitor (product) medicatio n Not available Not available Not available 09/22/2024 77061 5006 SNOMED Zuleika alvarez MD [address], [place], [address], [employer] 17:49:21 10930 Pepcid medicatio n Not available Not available Not available 09/22/2024 79958 8 RxNorm Zuleika alvarez MD [address] [facility], [facility] [address], [place], [address] , [facility] [employer] 17:49:29 Medications Name Sig Start Date Stop Date [...] 2 PUFFS BY MOUTH EVERY 4 HOURS active Not Available Not Available No t Available fluticaso ne propionat e 50 mcg/actua tion [...] ONE CAPSULE BY MOUTH ONCE A WEEK 08/25 completed Not Available Not Available Not Available Symbicort 2 puffs 1 time every day 09/05 completed duplicat e Not Available Not Available Not Available [employer]- G 236 gram-22.7 4 gram-6.74 gram-5.86 gram oral solution active Not Available Not Available Not Available [employer] [...] Updated DateTime 4 157.48 cm 26.2 kg/m2 84869.7 1 g 97.6 [degF] 72 /min 118 mm[Hg] 80 mm[Hg] Sujey Bynum [facility] [employer] [facility] 4 10:54:32 Date Recorded Body height Body mass index (BMI) Body weight Body temperature Systolic blood pressure Diastolic blood pressure Provider Name and Address Organization Details Last Updated DateTime 4 157.48 cm 27.4 kg/m2 12911.8 6 g 97.5 [degF] 122 mm[Hg] 60 mm[Hg] Sujey Bynum [facility] [employer] [facility] 4 10:36:16 Date Recorded Body height Body mass index (BMI) Body weight Body temperature Heart rate Oxygen saturation Oxygen saturation in Arterial blood by Pulse oximetry Systolic blood pressure Diastolic blood pressure Provider Name and Address Organization Details Last Updated DateTime 5 157.48 cm 26.5 kg/m2 43366.8 9 g 97.6 [degF] 74 /min 98 % 98 % 118 mm[Hg] 72 mm[Hg] Blessing Galvez [place] [facility] [employer] [facility] 5 11:37:44 Date Recorded Body height Body mass index (BMI) Body weight Body temperature Oxygen saturation Oxygen saturation in Arterial blood by Pulse oximetry Heart rate Systolic blood pressure Diastolic blood pressure Provider Name and Address Organization Details Last Updated DateTime 5 157.48 cm 26.7 kg/m2 47278.4 9 g 97.7 [degF] 97 % 97 % 81 /min 120 mm[Hg] 60 mm[Hg] Sumaya Lopes [facility] [employer] [facility] 5 16:39:22 Social History Question Answer Notes LastModified by Organizat ion Details LastModified Time Tobacco Smoking Status Never Smoker Not Available [employer] 09/13/2022 00:43:39 Do You Have An Advance Directive? No Information not available 01/31/2023 What Is Your Level Of Alcohol Consumption? None [id number] Information not available 09/13/2022 Are You Blind Or Do You Have Difficulty Seeing? No Information not available 01/31/2023 In The 14 Days Before Symptom Onset, Have You Had Close Contact With A Laboratory-confi rmed COVID-19 While That Case Was Ill? No [id number] Information not available 09/13/2022 In The 14 Days Before Symptom Onset, Have You Had Close Contact With A Person Who Is Under Investigation For COVID-19 While That Person Was Ill? No [id number].79113 [id number] Information not available 09/13/2022 Are You Currently Employed? No Information not available 01/31/2023 Are You Deaf Or Do You Have Serious Difficulty Hearing? No Information not available 01/31/2023 What Type Of Diet Are You Following? REGULAR MIGRATION.48930 [id number] Information not available 09/13/2022 Do You Or Have You Ever Used E-cigarettes Or Vape? Never Used Electronic Cigarettes MIGRATION.86883 [id number] Information not available 09/13/2022 What Is The Fluoride Status Of Your Home? Unknown Information not available 01/31/2023 Are There Any Guns Present In Your Home? No Information not available 01/31/2023 Where [facility] You Live? [facility] Information not available 01/31/2023 Do You Have A Medical Power Of Energy Rater? Yes Information not available 01/31/2023 What Was The Date Of Your Most Recent Tobacco Screening? 08/25/2024 [email or web address] Information not available 08/25/2024 Do You Have Any Pets? Yes Information not available 01/31/2023 What Is Your Relationship Status? [id number].[id number] Information not available 09/13/2022 Do You Use Your Seat Belt Or Car Seat Routinely? Yes Information not available 01/31/2023 Do You Have Smoke And Carbon Monoxide Detectors In Your Home? No Information not available 01/31/2023 Are You Passively Exposed To Smoke? No Information not available 01/31/2023 Do You Or Have You Ever Used Smokeless Tobacco? Never Used Smokeless Tobacco MIGRATION.99134 [id number] Information not available 09/13/2022 Are There Any Smokers In Your House? No Information not available 01/31/2023 How Much Tobacco Do You Smoke? No MIGRATION.25485 [id number] Information not available 09/13/2022 Do You Feel Stressed (tense, Restless, Nervous, Or Anxious, Or Unable To Sleep At Night)? [id number] Information not available 01/31/2023 Do You Use Any Illicit Or Recreational Drugs? No MIGRATION.07042 31185 Information not available 09/13/2022 Has Tobacco Cessation Counseling Been Provided? No N/a Information not available 01/31/2023 How Many Years Have You Smoked Tobacco? 0 MIGRATION.14605 77810 Information not available 09/13/2022 Have You Recently Traveled Abroad? No Information not available 01/31/2023 Do You Have Any Dietary Restrictions? No MIGRATION.04798 05826 Information not available 09/13/2022 Do You Or [...] 01/31/2023 What is your exercise level? None [id number] Information not available 09/13/2022 Mental Status Question Answer Note LastModified by Organization D etails LastModified Time Do you have difficulty concentrating, remembering or making decisions? No Information no t available 01/31/2023 Family History Relationship Description Onset Age of this Age Resolved Age Notes LastModified by Organization Details LastModified Time Father Diabetes mellitus [id number] [id number] Not available 09/13/2022 00:43:54 Father Cardiovascul ar injury [id number].284 [id number] Not available 09/13/2022 00:43:54 Mother History of hypertension [id number].049 [id number] Not available 09/13/2022 00:43:54 Medical History Condition Response NERVE DISEASE N BLINDNESS N RHEUMATIC FEVER N KIDNEY STONES N BLADDER PROBLEMS N MRSA N OTHER # 1 N POLIO N LUNG DISEASE/DISORDER N COPD N RADIATION / CHEMOTHERAPY N Other # 2 N BLOOD DISEASES [...] virus, quadrivalent, preservative 8 completed Not Available [employer] 09/13/2022 00:53:31 Influenza, high-dose, quadrivalent, PF 0 completed Not Available [facility] 09/13/2022 00:53:31 Pneumococcal conjugate PCV 13 0 completed Jack Linton LPN null, [facility] 01/16/2024 14:11:08 Influenza, high-dose, quadrivalent, PF 2 completed Jack Linton LPN null, [facility] 01/16/2024 14:11:08 COVID-19, mRNA, LNP-S, PF, 30 mcg/0.3 mL dose 1 completed Jack Linton LPN null, [facility] 01/16/2024 14:11:08 COVID-19, mRNA, LNP-S, PF, 30 mcg/0.3 mL dose 1 completed Jack Linton LPN null, [facility] 01/16/2024 14:11:08 COVID-19, mRNA, LNP-S, PF, 30 mcg/0.3 mL dose 1 completed Jack Linton LPN null, [facility] 01/16/2024 14:11:08 Influenza, high-dose, trivalent, PF 4 completed Zuleika Denney MD [address] [place] [address], [address], [facility] 05/28/2024 18:35:01 Past Encounters Encounter ID Performer Location Encounter Start Date Encounter Closed Date Diagnosis/Indication Diagnosis SNOMED-CT Code Diagnosis ICD10 Code Diagnosis Note [id number] [facility] [place] [address] 09/13/2020 00:00:00 09/13/2020 16:55:42 [id number] [facility] [place] [address] [place] [address] 02/09/2021 00:00:00 02/09/2021 14:28:[id number] [facility] Internal Med [place] [address] [facility] [place] [address] 01/31/2023 10:24:09 01/31/2023 11:38:25 Screening - NAD 829901773 Z13.9 C-scope: Done last year, in [facility] m: 03/11/19:D r Nessa Early 01/05/17, C-scope: To be done again in 7 years PAP: Did see Dr Robles and does well now Mammogram: Needs to get this done DEXA: 09/05/2019 : Osteopenia , does ca and vit d Get yearly flu shot 04/19/2020 Td 2009 as per [facility] TD PCV #13 04/19/2020 Can do shingles vaccineGet COVID 19 vaccine done RTC in 4 monthsGet labsER if worseShe and her did verbalize her understand ing of the above Asthma 374890947 J45.90 9 On symbicort, renewed 01/31/2023 On singulairO n albuterol Does well Thrombocyt openic disorder 689511481 D69.6 Get labs and then will decide if she wants to see Dr Dover again Hyperlipidemia 29408475 E78.5 Get back on rosuvastat in 40mg dailyGet labs Vitamin D deficiency 347 30474 E55.9 Screening mammography 24 167408 Z12.31 Ordered 09/13/2020 , 02/09/2021 , but she does not want to do thisAdvise d on SBE and notify if any symptoms occur or change Anemia 145051303 D64.9 Does wellGet labs [id number] Zuleika slater MD [facility] Internal [facility] [place] [address] [facility] [place] [address] 09/05/2023 10:11:46 09/05/2023 11:10:04 Asthma 817714662 J45.909 On symbicort, renewed 01/31/2023 On singulairO n albuterol will d/cStart on airsupra Does well Hyperlipidemia 57325113 E78.5 Get back on rosuvastat in 40mg dailyGet labs Screening - NAD 87982926 3 Z13.9 C-scope: Done last year, in [facility] m: 03/11/19:D r Nessa Early 01/05/17, C-scope: [...] ing of the above Thrombocyt openic disorder 235678297 D69.6 Get labs and then will decide if she wants to see Dr Dover again Vitamin D deficiency 347 39716 E55.9 Screening mammography 24 016278 Z12.31 Ordered 09/13/2020 , 02/09/2021 , but she does not want to do thisAdvise d on SBE and notify if any symptoms occur or change Anemia 474448378 D64.9 Does wellGet labs Hypothyroidism 77043919 E03.9 Get labsGet US thyroid Screening for malignant neoplasm of colon 476172103 Z12.11 Screening for osteoporosis 429378634 Z13.163 [id number] Zuleika slater MD [facility] [place] [address] [place] [address] [place] [address] 01/23/2024 10:23:14 01/23/2024 11:39:09 Asthma 924967308 J45.909 On symbicort, renewed 01/31/2023 On singulairO n albuterol will d/cStart on airsupra Does well Hyperlipidemia 12057056 E78.5 On rosuvastat in 40mg dailyGet labs Screening - NAD 69882864 3 Z13.9 C-scope: Done last year, in [facility] m: 03/11/19:D r Nessa Early 01/05/17, C-scope: [...] ing of the above Thrombocyt openic disorder 083468397 D69.6 Get labs and then will decide if she wants to see Dr Dover again Vitamin D deficiency 347 50449 E55.9 Screening mammography 24 574237 Z12.31 Ordered 09/13/2020 , 02/09/2021 , but she does not want to do thisAdvise d on SBE and notify if any symptoms occur or change Anemia 622267468 D64.9 Does wellGet labs Hypothyroidism 67242289 E03.9 Get labsGet US thyroid Screening for malignant neoplasm of colon 022227366 Z12.11 Screening for osteoporosis 073272763 Z13.002 [id number] Zuleika slater MD [facility] [address] [place] [address] 05/28/2024 10:07:23 05/28/2024 11:13:16 Asthma [id number] J45.909 On symbicort, renewed 01/31/2023 On singulairO n albuterol Does well Hyperlipidemia 15586924 E78.5 On rosuvastat in 40mg dailyGet labs Screening - NAD 92571825 3 Z13.9 C-scope: Done last year, in [facility] m: 03/11/19:D r Nessa Early 01/05/17, C-scope: [...] ing of the above Thrombocyt openic disorder 605688958 D69.[address] Dover again Vitamin D deficiency 347 04644 E55.9 Screening mammography 24 782921 Z12.31 Ordered 09/13/2020 , 02/09/2021 , but she does not want to do thisAdvise d on SBE and notify if any symptoms occur or change Anemia 500888910 D64.9 Does wellGet labs Hypothyroidism 11972077 E03.9 Get labsGet thyroid Screening for malignant neoplasm of colon 689822934 Z12.11 Screening for osteoporosis 673472986 Z13.820 Administra tion of influenza vaccine 09133931 Z23 [id number] Zuleika slater MD [facility] Primary Care [address] [place] [address] 08/21/2024 11:20:58 08/21/2024 11:50:26 [id number] Zuleika slater MD [facility] Care [address] [place] [address] 08/25/2024 11:22:01 08/25/2024 12:23:44 Asthma 525143022 J45.909 On symbicort, renewed 01/31/2023 On singulairO n albuterol Does well Hyperlipidemia 40207473 E78.5 On rosuvastat in 40mg daily, has been not complaint with taking her statinGet labs Screening - NAD 94989406 3 Z13.9 C-scope: Done last year, in [facility] m: 03/11/19:D r Nessa Early 01/05/17, C-scope: [...] ing of the above Thrombocyt openic disorder 750745840 D69.[address] Dover again Vitamin D deficiency 347 32924 E55.9 Screening mammography 24 218223 Z12.31 Ordered 09/13/2020 , 02/09/2021 , but she does not want to do thisAdvise d on SBE and notify if any symptoms occur or change Anemia 632044911 D64.9 Does wellGet labs Hypothyroidism 78470853 E03.9 Get labsGet US thyroid Screening for malignant neoplasm of colon 057907747 Z12.11 Screening for osteoporosis 366774923 Z13.921 [id number] [facility] [address] [facility] [address] [place] [address] 09/22/2024 16:21:42 09/22/2024 17:47:05 Allergic reaction 064323503 T78.40XA D/t pepcid given by the Tarynw does well, mild redness seen, advised to take OTC benadryl, notify if worse, ER if worse, she is very appreciati ve to this plan of care Health Concerns Section Related Observation LastModified by Organization Detai ls LastModified Time None Recorded Concern Status LastModified by Organization Details LastModified Time None Recorded Advance Directives Directive N: Payers Encounter Date Sequence Insurance Name Policy Number Policy Liu Covered Member ID Liu Member ID Guarantor Name 01/23/2024 1 [facility] (O) [id number] [facility] [id number] [facility] 05/28/2024 1 [facility] (O) [id number] Eve Fernández [place] [id number] [facility] 08/21/2024 2 [employer] (MEDICARE SUPPLEMENT) [facility] [id number] [facility] 08/21/2024 1 [place] Eve Fernández [place] [id number] [facility] 08/25/2024 2 [employer] (MEDICARE SUPPLEMENT) [facility] [id number] Eve [facility] 08/25/2024 [place] Eve [facility] [id number] [place] 09/22/2024 2 [employer] (MEDICARE SUPPLEMENT) Eve [facility] [id number] Eve [facility] 09/22/2024 1 [place] Eve [facility] [id number] Eve [facility] Notes Date Note Type Note Provider Name and Address Organization Details Recorded Time 01/23/2024 text/html OV 02/26/19:Here to establish carePast PCP: Dr. Perez, last apt was 1.5 yearsPast Hx:AsthmaRaymond vazquez social family and surgical historyHere with her [...] here with her Zuleika Denney MD [address] [facility], [facility] [address], [place], [address], [facility] 02/10/2024 20:37:09 05/28/2024 text/html OV 02/26/19:Here to [...] here with her Zuleika Denney MD [address] [facility], [facility] [address], [place], [address], [place] [facility] 05/28/2024 18:36:10 08/25/2024 text/html OV 02/26/19:Here to [...] her 's medical issues Zuleika Denney MD [address], [place], [address], [place] [facility] 08/25/2024 14:15:19 09/22/2024 text/html OV 02/26/19:Here to establish carePast PCP: Dr. Perez, last apt was 1.5 yearsPast Hx:Rossy vazquez social family and surgical historyHere with her [...] been helping with her 's medical issues OV 09/22/2024: Here for ACV:C/o carleen foot redness and itching as she was given pepcid by the GI when getting her C-scope, she then noted redness and itching the next day, now it has almost resolved, no other complaints, no difficulty breathing or swallowing Zuleika Denney MD [address] [place] [address], [address], [place], [address], [place] [facility] 09/22/2024 18:40:37 OBGyn Episode No OBEpisode recorded.
--- OUTSIDE RECORDS SUMMARY | 2024-09-23 09:34 | XMS_ITS | Patient Health Summary ---
Author Organization [facility] Address [address] [place] [address] Care Team Providers Care Director Athletic Name Role Phone Unavailable Primary Care Provider Unavailabl e Note from [facility],non-owned Affiliates and Associated Physician Practices is amultiple site organization consisting of ambulatory clinics and hospital sitesin [place], [place], [place] and [place]. This disclosure is being madepursuant to the Care Everywhere program and may not contain all information available regarding this patient. Last updated 18.[facility] Food[employer]ee Allergies No known active allergies Medications * [...] Comments Blood Pressure 122/68 06/05/2020 11:47 AM SENIOR EMBEDDED SOFTWARE ENGINEER Pulse 78 06/05/2020 11:47 AM SENIOR EMBEDDED SOFTWARE ENGINEER Temperature 36.8 C (98.3 F) 06/05/2020 11:47 AM SENIOR EMBEDDED SOFTWARE ENGINEER Respiratory Rate 16 06/05/2020 11:47 AM SENIOR EMBEDDED SOFTWARE ENGINEER Oxygen Saturation 95% 06/05/2020 11:47 AM SENIOR EMBEDDED SOFTWARE ENGINEER Inhaled Oxygen Concentration - - Weight 59 kg (130 lb) 06/05/2020 11:47 AM SENIOR EMBEDDED SOFTWARE ENGINEER Height 157.5 cm (5' 2 ) 06/05/2020 11:47 AM SENIOR EMBEDDED SOFTWARE ENGINEER Body Mass Index 23.78 06/05/2020 11:47 AM SENIOR EMBEDDED SOFTWARE ENGINEER Procedures * INFLUENZA A+B - POINT OF CARE (AMB)(Performed 06/05/2020) Performed for Influenza B * STREP A SCREEN - POINT OF CARE (AMB) STL(Performed 06/05/2020) Performed for Influenza B * COVID-19 SARS-COV-2 PCR QUAL ([facility])(Performed 06/05/2020) Performed for Influenza B Results * (ABNORMAL) INFLUENZA A+B - POINT OF CARE (AMB) (06/05/2020 12:28 PM SENIOR EMBEDDED SOFTWARE ENGINEER) Influenza A Antigen Rapid Negative(A) Negative [facility] Influenza B Antigen Rapid Positive(A) Negative [facility] Influenza Internal Control present NEGATIVE - POSITIVE [facility] Influenza Lot Number [id number] [facility] Influenza Expiration Date [facility] Other NASOPHARYNGEAL SWAB / Unknown 06/05/2020 12:28 PM SENIOR EMBEDDED SOFTWARE ENGINEER Joseph Carrasco DIRECTOR OF MANUFACTURING-BILLING DEPARTMENT SUPERVISOR LAB - POINT OF CARE ORDERABLES Performing Organization Address [facility] Co de Phone Number [facility] [address] [phone] * STREP A SCREEN - POINT OF CARE (AMB) STL (06/05/2020 12:27 PM SENIOR EMBEDDED SOFTWARE ENGINEER) Pathologist [facility] Strep A Rapid POCT Negative Negative [facility] Strep A Internal Control Present [facility] Lot # [id number] [facility] Expiration Date [id number] [facility] Throat ENTIRE THROAT (SURFACE REGION OF NECK) / Unknown 06/05/2020 12:27 PM SENIOR EMBEDDED SOFTWARE ENGINEER Joseph Carrasco DIRECTOR OF MANUFACTURING-BILLING DEPARTMENT SUPERVISOR LAB - POINT OF CARE ORDERABLES [facility] [address] [phone] * (ABNORMAL) COVID-19 SARS-COV-2 PCR QUAL ([facility]) (06/05/2020 12:12 PM SENIOR EMBEDDED SOFTWARE ENGINEER) SARS-CoV-2 GEENA Detected( A) Not Detected [facility] ACCOUNT BILL Comment: This nucleic acid amplification test was developed and its performance characteristics determined by [facility]. Nucleic acid amplification tests include PCR [...] NASOPHARYNGEAL STRUCTURE / Unknown 06/05/2020 12:12 PM SENIOR EMBEDDED SOFTWARE ENGINEER 06/05/2020 Narrative Resulting Agency Comment Lab Testing performed at: [facility] [email or web address] [facility] [place] [id number] Joseph Carrasco DIRECTOR OF MANUFACTURING-BILLING DEPARTMENT SUPERVISOR LAB - MICRO BIOLOGY ORDERABLES [facility] ACCOUNT BILL [address] [place] [address]
--- OUTSIDE RECORDS SUMMARY | 2024-09-23 09:34 | XMS_ITS | Encounter Summary ---
Author Organization [facility] Address [address] [place] [address] Care Team Providers Care Hairspring Staker Name Role Phone Zuleika Denney MD Primary Care Provider Encounter Details Date Type Department Care Team (Latest Contact Info) Description 05/06/2003 Outpatient Historical HIS [facility] Mel Hein MD NO ADDRESS ON FILE UNSP ABNORMAL MAMMOGRAM (Primary Dx) Social History Tobacco Use Types Packs/Day Years Used Date Smoking Tobacco: Never Assessed Comments Unknown Sex and Gender Information Value Date Recorded Sex Assigned at Not on file Legal Sex Female 5:16 AM HUNTER GUIDE Gender Identity Not on file Sexual Orientation Not on file documented as of this encounter Plan of Treatment Upcoming Encounters Date Type Department Care Team (Late st Contact Info) Description 09/30/2024 1:00 PM CDT Office Visit [facility] Oncology and Hematology - Kunal [address] [facility] [address] [place] [address] [place] [address] [place] [address] [address] [place] [address] documented as of this encounter Visit Diagnoses Diagnosis Abnormal mammogram, unspecified- Primary documented in this encounter Care Teams Hairspring Staker Relationship Specialty Start Date End Date uZleika Denney MD PCP - General Internal Medicine 09/01/19 documented as of this encounter
--- OUTSIDE RECORDS SUMMARY | 2024-09-23 09:34 | XMS_ITS | Encounter Summary ---
Author Organization [facility] Address [address] [place] [address] Care Team Providers Care Towboat Operator Name Role Phone Zuleika Denney MD Primary [...] on file Legal Sex Female 5:16 AM EDGE BEADER Gender Identity Not on file Sexual Orientation Not on file documented as of this encounter Plan of Treatment Upcoming Encounters Date Type Department Care Team (Late st Contact Info) Description 09/30/2024 1:00 PM CDT Office Visit [facility] Oncology and Hematology - [place]unal [address] [place] [address] [facility] [address] [place] [address] [place] [address] [place] [address] [address] [place] [address] documented as of this encounter Visit Diagnoses Diagnosis Other screening mammogram- Primary documented in this encounter Care Teams Towboat Operator Relationship Specialty Start Date End Date Zuleika Denney MD PCP - General Internal Medicine 09/01/19 documented as of this encounter
--- OUTSIDE RECORDS SUMMARY | 2024-09-23 09:34 | XMS_ITS | Continuity of Care Document ---
Author Organization [facility] [place], [facility] [place] Address [address] [facility] [address] [place] [address] Assessment No assessment recorded. Plan of Treatment Reminders Order Date Submit Date Provider Last Modified By Organization Details Last Modified Time Details Appointments Follow Up 15 2024 10:00A M Zuleika alvarez MD Not available Not available Not available Lab None recorded . Referral None recorded . Procedures None recorded . Surgeries None recorded . Imaging None recorded . Medication Orders None recorded . Patient TargetsNo targets recorded. Patient InstructionsNo instructions recorded. Reason for Referral None Reported. Problems Name Problem SNOMED Code Status Onset Date Resolution Date Notes Provider Name and Address Organization Details Recorded Time Acute sinusitis 29197117 Active 2021 Not Available [employer] 3 00:48:21 Vitamin D deficiency 79964449 Active 2022 Kristine Bruno RN [facility], [employer] 3 09:40:41 Asthma 316115322 Active 2022 Zuleika slater MD [address] [place] [address], [place], [address] , [employer] 3 10:32:48 Thrombocytope tino disorder 195820659 Active 2022 Zuleika slater MD [address] [facility] [address], [place], [address] , [employer] 3 10:32:57 Hyperlipidemi a 60274694 Active 2022 Zuleika slater MD [address] [place] [address], [place], [address] , [facility] [employer] [facility] 3 10:33:00 Deficiency of vitamin D2 015383533 Active 2022 Zuleika slater MD [address] [facility], [address] [place] [address], [place], [address] , [facility] [employer] [facility] 3 10:33:06 Anemia 267114001 Active 2022 Zuleika slater MD [address] [facility], [address] [place] [address], [place], [address] , [facility] [employer] [facility] 3 11:04:29 Hypothyroidis m 31651710 Active 2023 Zuleika slater MD [address] [facility], [address] [place] [address], [place], [address] , [facility] [employer] [facility] [employer] [facility] 4 10:38:35 Cough 80640518 Active 2024 Dmitriy Fitzpatrick CMA null, [facility] [employer] [facility] 5 15:21:49 Allergic reaction 257210151 Active 2024 Zuleika slater MD [address] [facility], [address], [address] , [facility] [employer] [facility] 5 18:39:17 Problem Notes None recorded. Procedures Surgical History Date Name Laterality Status Provider Name and Address Organization Details Recorded Time procedure on wrist completed Not Available [facility] 09/13/2022 00:43:48 Imaging Results None recorded. Procedure Notes None recorded. Medical Equipment None Reported. Allergies Allergen ID Allergen Name Allergen Category Reaction Reaction Severity Criticality Documentation Date Start Date Code Code System Note Provider Name and Address Organization Details Recorded Time 602 titanium Not available Not available Not available Not available 09/13/2022 86557 47 RxNorm Not Available [facility] 3 00:53:36 603 Compazine medicatio n Not available Not available Not available 09/13/2022 41425 6 RxNorm Not Available [facility] 3 00:53:36 04773 Product containin g hydrogen/ potassium adenosine triphosph atase enzyme system inhibitor (product) medicatio n Not available Not available Not available 09/22/2024 92232 5006 SNOMED Zuleika alvarez MD [address] [facility], [facility] [address], [place], [address], Medical Referral Source [facility] [employer] 17:49:21 69276 Pepcid medicatio n Not available Not available Not available 09/22/2024 11100 8 RxNorm Zuleika alvarez MD [address], [facility] [address], [place], [address], [employer] 17:49:29 Medications Name Sig Start Date Stop [...] Updated DateTime 5 157.48 cm 26.7 kg/m2 35118.4 9 g 97.7 [degF] 97 % 97 % 81 /min 120 mm[Hg] 60 mm[Hg] CARROL Black [place] - [facility] [employer] 5 16:39:22 Social History Question Answer Notes LastModified by Organizat ion Details LastModified Time Tobacco Smoking Status Never Smoker Not Available [employer] 09/13/2022 00:43:39 Do You Have An Advance Directive? No Information not available 01/31/2023 What Is Your Level Of Alcohol Consumption? None [id number] Information not available 09/13/2022 Are You Blind Or Do You Have Difficulty Seeing? No Information not available 01/31/2023 In The 14 Days Before Symptom Onset, Have You Had Close Contact With A Laboratory-confi rmed COVID-19 While That Case Was Ill? No [id number].77383 [id number] Information not available 09/13/2022 In The 14 Days Before Symptom Onset, Have You Had Close Contact With A Person Who Is Under Investigation For COVID-19 While That Person Was Ill? No MIGRATION.34637 06693 Information not available 09/13/2022 Are You Currently Employed? No Information not available 01/31/2023 Are You Deaf Or Do You Have Serious Difficulty Hearing? No Information not available 01/31/2023 What Type Of Diet Are You Following? REGULAR MIGRATION.56151 21748 Information not available 09/13/2022 Do You Or Have You Ever Used E-cigarettes Or Vape? Never Used Electronic Cigarettes MIGRATION.50184 [id number] Information not available 09/13/2022 What Is The Fluoride Status Of Your Home? Unknown Information not available 01/31/2023 Are There Any Guns Present In Your Home? No Information not available 01/31/2023 Where Do You Live? [facility] Information not available 01/31/2023 Do You Have A Medical Power Of Limousine Driver? Yes Information not available 01/31/2023 What Was The Date Of Your Most Recent Tobacco Screening? 08/25/2024 [email or web address] Information not available 08/25/2024 Do You Have Any Pets? Yes Information not available 01/31/2023 What Is Your Relationship Status? MIGRATION.20370 19492 Information not available 09/13/2022 Do You Use Your Seat Belt Or Car Seat Routinely? Yes Information not available 01/31/2023 Do You Have Smoke And Carbon Monoxide Detectors In Your Home? No Information not available 01/31/2023 Are You Passively Exposed To Smoke? No Information not available 01/31/2023 Do You Or Have You Ever Used Smokeless Tobacco? Never Used Smokeless Tobacco MIGRATION.88419 27919 Information not available 09/13/2022 Are There Any Smokers In Your House? No Information not available 01/31/2023 How Much Tobacco Do You Smoke? No MIGRATION.95485 37700 Information not available 09/13/2022 Do You Feel Stressed (tense, Restless, Nervous, Or Anxious, Or Unable To Sleep At Night)? SB6631-5 Information not available 01/31/2023 Do You Use Any Illicit Or Recreational Drugs? No MIGRATION.52843 35808 Information not available 09/13/2022 Has Tobacco Cessation Counseling Been Provided? No N/a Information not available 01/31/2023 How Many Years Have You Smoked Tobacco? 0 MIGRATION.12685 39353 Information not available 09/13/2022 Have You Recently Traveled Abroad? No Information not available 01/31/2023 Do You Have Any Dietary Restrictions? No MIGRATION.76440 66043 Information not available 09/13/2022 Do You Or [...] 01/31/2023 What is your exercise level? None [id number].[id number] 026 Information not available 09/13/2022 Mental Status Question Answer Note LastModified by Organization D etails LastModified Time Do you have difficulty concentrating, remembering or making decisions? No Information no t available 01/31/2023 Family History Relationship Description Onset Age of this Age Resolved Age Notes LastModified by Organization Details LastModified Time Father Diabetes mellitus [id number].773 [id number] Not available 09/13/2022 00:43:54 Father Cardiovascul ar injury MIGRATION.616 [id number] Not available 09/13/2022 00:43:54 Mother History of hypertension MIGRATION.576 [id number] Not available 09/13/2022 00:43:54 Medical History Condition Response BLINDNESS N NERVE DISEASE N RHEUMATIC FEVER N BLADDER PROBLEMS N KIDNEY STONES N MRSA N OTHER # 1 N POLIO N LUNG DISEASE/DISORDER N RADIATION / CHEMOTHERAPY N COPD N Other # 2 N BLOOD DISEASES N EAR OR HEARING PROBLEMS N MUMPS N DEPRESSION (INCLUDING POST ) N BOWEL PROBLEMS N STROKE/TIA N ULCERS N BENIGN PROSTATIC [...] virus, quadrivalent, preservative 8 completed Not Available [facility] 09/13/2022 00:53:31 Influenza, high-dose, quadrivalent, PF 0 completed Not Available [facility] 09/13/2022 00:53:31 Pneumococcal conjugate PCV 13 0 completed PAULINO Mendoza, [facility] [employer] [facility] 01/16/2024 14:11:08 Influenza, high-dose, quadrivalent, PF 2 completed Jack Linton LPN null, [facility] [employer] [facility] 01/16/2024 14:11:08 COVID-19, mRNA, LNP-S, PF, 30 mcg/0.3 mL dose 1 completed PAULINO Mendoza, [facility] [employer] [facility] 01/16/2024 14:11:08 COVID-19, mRNA, LNP-S, PF, 30 mcg/0.3 mL dose 1 completed PAULINO Mendoza, [facility] [employer] [facility] 01/16/2024 14:11:08 COVID-19, mRNA, LNP-S, PF, 30 mcg/0.3 mL dose 1 completed Jack Linton LPN null, [employer] 01/16/2024 14:11:08 Influenza, high-dose, trivalent, PF 4 completed Zuleika Denney MD [address] [facility], [facility] [address], [place], [address], [facility] [employer] 05/28/2024 18:35:01 Past Encounters Encounter ID Performer Location Encounter Start Date Encounter Closed Date Diagnosis/Indication Diagnosis SNOMED-CT Code Diagnosis ICD10 Code Diagnosis Note [id number] Zuleika slater MD [facility] [address] [facility] [address] [place] [address] 08/25/2024 11:22:01 08/25/2024 12:23:44 Asthma 281992082 J45.909 On symbicort, renewed 01/31/2023 On singulairO n albuterol Does well Hyperlipidemia 29923139 E78.5 On rosuvastat in 40mg daily, has been not complaint with taking her statinGet labs Screening - NAD 02518906 3 Z13.9 C-scope: Done last year, in [facility] m: 03/11/19:D r Nessa Early 01/05/17, C-scope: To be done again in 7 yearsIs to get her C-scope 09/17/2024 , as per her history 08/25/2024 PAP: Did see Dr Robles and does well now Mammogram: Not doing this 08/25/2024 , do SBE DEXA: 09/05/2019 : Osteopenia , does ca and vit d Get yearly flu shot 04/19/2020 Td 2010 as per [employer] TD PCV #13 04/19/2020 Can do shingles vaccineGet COVID 19 vaccine doneDo RSV vaccine RTC in 4 monthsGet labsER if worseShe and her did verbalize her understand ing of the above Thrombocyt openic disorder 885046352 D69.[address] Dover again Vitamin D deficiency 347 45322 E55.9 Screening mammography 24 644613 Z12.31 Ordered 09/13/2020 , 02/09/2021 , but she does not want to do thisAdvise d on SBE and notify if any symptoms occur or change Anemia 202603352 D64.9 Does wellGet labs Hypothyroidism 72701967 E03.9 Get labsGet US thyroid Screening for malignant neoplasm of colon 275491744 Z12.11 Screening for osteoporosis 481371931 Z13.937 [id number] Zuleika slater MD [facility] [address] [facility] [address] [place] [address] 09/22/2024 16:21:42 09/22/2024 17:47:05 Allergic reaction 967765472 T78.40XA D/t pepcid given by the Tarynw does well, mild redness seen, advised to take OTC benadryl, notify if worse, ER if worse, she is very appreciati ve to this plan of care Health Concerns Section Related Observation LastModified by Organization Detai ls LastModified Time None Recorded Concern Status LastModified by Organization Details LastModified Time None Recorded Payers Encounter Date Sequence Insurance Name Policy Number Policy Liu Covered Member ID Liu Member ID Guarantor Name 09/22/2024 2 [employer] (MEDICARE SUPPLEMENT) Eve Reston [id number] [facility] 09/22/2024 1 [place] Eve [facility] [id number] [facility] Notes Date Note Type Note Provider Name and Address Organization Details Recorded Time 09/22/2024 text/html OV 02/26/19:Here to establish carePast [...] difficulty breathing or swallowing Zuleika Denney MD [address], [place], [address], [place] [employer] 09/22/2024 18:40:37 OBGyn Episode No OBEpisode recorded.
--- OUTSIDE RECORDS SUMMARY | 2024-09-23 09:34 | XMS_ITS | Clinical Summary ---
Author Organization [facility] Address [address] [place] [address] Care Team Providers Care Supervisor Statement Clerks Name Role Phone Unavailable Primary Care Provider [...]
--- OUTSIDE RECORDS SUMMARY | 2024-09-23 09:34 | XMS_ITS | Clinical Summary ---
Author Organization [facility] [employer] jessica [place] Address [address] [place] [address] Care Team Providers Care Gusset Edger Name Role Phone Zuleika Denney MD Primary Care Provider Allergies Active Allergy Reactions Criticality Noted Date Comments Esomeprazole Rash Low 09/08/2024 Omeprazole Rash Low 09/08/2024 Reaction: Rash, , Reaction: Rash, Prochlorperazine Rash Low 10/07/2019 Titanium Swelling Low 10/07/2019 Medications montelukast (Singulair) 10 mg tablet every 24 hours. Acti ve fluticasone propionate (FLONASE) 50 mcg/spray [place], Suspension nasal inhaler fluticasone propionate 50 mcg/actuation nasal spray,suspension SHAKE LQ AND U 1 SPR IEN QD Active albuterol HFA 90 mcg inhaler ProAir HFA 90 mcg/actuation aerosol inhaler Active calcium citrate-vitamin d3 (CITRACAL D) 315-200 mg-unit Tablet Take by mouth daily. 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 Encounters Date Type Department Care Team Description 09/20/2024 External Device Data STL ABSTRACTION Provider, Abstract 09/19/2024 External Device Data STL ABSTRACTION Provider, Abstract 09/18/2024 Orders Only [facility] Oncology and Hematology - Kunal [address] [place] [address] Miki Dover MD 09/18/2024 Abstract [facility] Oncology and Hematology - Kunal [address] [place] [address] Miki Dover MD 09/15/2024 Orders Only [facility] Oncology and Hematology - [address] [place] [address] Miki Dover MD 09/10/2024 Orders Only [facility] Oncology and Hematology - [address] [place] [address] Miki Dover MD 09/09/2024 External Device Data STL ABSTRACTION Provider, Abstract 09/09/2024 External Device Data STL ABSTRACTION Provider, Abstract 09/09/2024 External Device Data STL ABSTRACTION Provider, Abstract 09/08/2024 1:30 PM GLASS SETTER Office Visit [facility] Oncology and Hematology - Kunal [address] [place] [address] Miki Dover MD Chronic anemia (Primary Dx); [...] on file Legal Sex Female 5:16 AM GLASS SETTER Gender Identity Not on file Sexual Orientation Not on file Last Filed Vital Signs Vital Sign Reading Time Taken Comments Blood Pressure 122/79 09/08/2024 1:24 PM GLASS SETTER Pulse 79 09/08/2024 1:24 PM GLASS SETTER Temperature 36.3 C (97.3 F) 09/08/2024 1:24 PM GLASS SETTER Respiratory Rate 15 09/08/2024 1:24 PM GLASS SETTER Oxygen Saturation 97% 09/08/2024 1:24 PM GLASS SETTER Inhaled Oxygen Concentration - - Weight 65.6 kg (144 lb 9.6 oz) 09/08/2024 1:24 P M GLASS SETTER Height 157.5 cm (5' 2 ) 09/08/2024 1:24 PM GLASS SETTER Body Mass Index 26.45 09/08/2024 1:24 PM GLASS SETTER Plan of Treatment Upcoming Encounters Date Type Department Care Team (Late st Contact Info) Description 09/30/2024 1:00 PM CDT Office Visit [facility] Oncology and Hematology [facility] [address] [facility] [address] [place] [address] Miki Dover MD [address] [facility] [place] [address] Health Maintenance Due Date Last Done Comments DTAP/TDAP/TD VACCINES (1 - Tdap) 12/13/1967 Traditional Medicare (ACO) Annual Wellness Visit 12/12 COLORECTAL SCREENING 1993 Colorectal Cancer Screening 1993 FIT-DNA Q 3 years 1993 FIT/FOBT Q 1 year 1993 Flex Sig/CT Colonography Q 5 years 1993 ZOSTER VACCINE (1 of 2) 1998 PNEUMOCOCCAL VACCINE 50+ YEARS (2 of 2 - PCV) 09/22/19 11 09/21/2009 RSV VACCINE (60+ or ) (1 - 1-dose 75+ series) 12/13/2023 INFLUENZA VACCINE (#1) 2024 04/15/2018 OSTEOPOROSIS SCREENING Completed 09/05/2019 Procedures Procedure Name Priority Date/Time Associated Diagnosis Comments TRANSFERRIN RECEPTOR TFR SOLUBLE Routine 09/08/2024 4:16 PM GLASS SETTER COMPREHENSIVE METABOLIC PANEL Routine 09/08/2024 3:47 PM GLASS SETTER CBC WITH AUTODIFFERENTIAL Routine 2024 10:34 AM GLASS SETTER METHYLMALONIC ACID Routine 09/08/2024 10 :19 AM GLASS SETTER from Last 3 Months Results * TRANSFERRIN RECEPTOR TFR SOLUBLE (09/08/2024 4:16 PM GLASS SETTER) Blood us Miki Dover MD CHEMISTRY ORDERABLES Final Resu lt * COMPREHENSIVE METABOLIC PANEL (09/08/2024 3:47 PM GLASS SETTER) Blood us Miki Dover MD CHEMISTRY ORDERABLES Final Resu lt * CBC WITH AUTODIFFERENTIAL (09/08/2024 10:34 AM GLASS SETTER) Blood Miki Dover MD HEMATOLOGY ORDERABLES Final Res ult * METHYLMALONIC ACID (09/08/2024 10:19 AM GLASS SETTER) Blood Miki Dover MD CHEMISTRY ORDERABLES Final Resu lt from Last 3 Months Insurance MEDICARE PART A AND B Care Teams Gusset Edger Relationship Specialty Start Date End Date Zuleika Denney MD PCP - General Internal Medicine 09/01/19
--- OUTSIDE RECORDS SUMMARY | 2024-09-23 09:34 | XMS_ITS | Encounter Summary ---
Author Organization [facility] [employer] [facility] Address [address] [address] Care Team Providers Care Vice President Compliance Name Role Phone Zuleika Denney MD Primary Care Provider Encounter Details Date Type Department Care Team (Late Contact Info) Description 09/18/2024 Orders Only [facility] Oncology and Hematology - Kunal [address] [place] [address] Miki Dover MD [facility] [employer] [address] [place] [address] Social History Tobacco Use Types Packs/Day Years Used Date Smoking Tobacco: Never Smokeless Tobacco: Never Alcohol Use Standard Drinks/Week Comments Never 0 (1 standard drink = 0.6 oz pur e alcohol) Comments No Sex and Gender Information Value Date Recorded Sex Assigned at Not on file Legal Sex Female 5:16 AM ADMITTANCE ATTENDANT Gender Identity Not on file Sexual Orientation Not on file documented as of this encounter Plan of Treatment Upcoming Encounters Date Type Department Care Team (Late st Contact Info) Description 09/30/2024 1:00 PM CDT Office Visit [facility] Oncology and Hematology - Kunal [address] [place] [address] Miki Dover MD [facility] [employer] [address] [place] [address] documented as of this encounter Procedures Procedure Name Priority Date/Time Associated Diagnosis Comments COMPREHENSIVE METABOLIC PANEL Routine 09/08/2024 3:47 PM ADMITTANCE ATTENDANT documented in this encounter Results * COMPREHENSIVE METABOLIC PANEL (09/08/2024 3:47 PM ADMITTANCE ATTENDANT) Blood Miki Dover MD CHEMISTRY ORDERABLES Final Resu lt documented in this encounter Visit Diagnoses Not on filedocumented in this encounter Care Teams Vice President Compliance Relationship Specialty Start Date End Date Zuleika Denney MD PCP - General Internal Medicine 09/01/19 documented as of this encounter
--- OUTSIDE RECORDS SUMMARY | 2024-09-23 09:34 | XMS_ITS | Referral Summary ---
Author Organization [facility] Address [address] [place] [address] Care Team Providers Care Clinical Account Manager Name Role Phone Unavailable Primary Care Provider Unavailabl e Source Comments [facility],non-owned Affiliates and Associated Physician Practices is amultiple site organization consisting of ambulatory clinics and hospital sitesin [place], [place], [place] and [place]. This disclosure is being madepursuant to the Care Everywhere program and may not contain all information available regarding this patient. Last updated 18.[facility] [employer] Allergies No known active allergies Medications * [...] Comments Blood Pressure 122/68 06/05/2020 11:47 AM RETAIL BRAND AMBASSADOR Pulse 78 06/05/2020 11:47 AM RETAIL BRAND AMBASSADOR Temperature 36.8 C (98.3 F) 06/05/2020 11:47 AM RETAIL BRAND AMBASSADOR Respiratory Rate 16 06/05/2020 11:47 AM RETAIL BRAND AMBASSADOR Oxygen Saturation 95% 06/05/2020 11:47 AM RETAIL BRAND AMBASSADOR Inhaled Oxygen Concentration - - Weight 59 kg (130 lb) 06/05/2020 11:47 AM RETAIL BRAND AMBASSADOR Height 157.5 cm (5' 2 ) 06/05/2020 11:47 AM RETAIL BRAND AMBASSADOR Body Mass Index 23.78 06/05/2020 11:47 AM RETAIL BRAND AMBASSADOR Plan of Treatment Not on file
--- OUTSIDE RECORDS SUMMARY | 2024-09-23 09:34 | XMS_ITS | Encounter Summary ---
Author Organization [facility] Address [address] [place] [address] Care Team Providers Care Programs Director Name Role Phone Zuleika Denney MD Primary Care Provider Encounter Details Date Type Department Care Team (Late st Contact Info) Description 09/20/2024 External Device Data STL ABSTRACTION Provider, Abstract NO ADDRESS ON FILE Social History Tobacco Use Types Packs/Day Years Used Date Smoking Tobacco: Never Smokeless Tobacco: Never Alcohol Use Standard Drinks/Week Comments Never 0 (1 standard drink = 0.6 oz pur e alcohol) Comments No Sex and Gender Information Value Date Recorded Sex Assigned at Not on file Legal Sex Female 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 FITTER Gender Identity Not on file Sexual Orientation Not on file documented as of this encounter Plan of Treatment Upcoming Encounters Date Type Department Care Team (Late st Contact Info) Description 09/30/2024 1:00 PM CDT Office Visit [facility] Oncology and Hematology - Kunal [address] [facility] [address] [place] [address] Miki Dover MD [address] [place] [address] documented as of this encounter Visit Diagnoses Not on filedocumented in this encounter Care Teams Programs Director Relationship Specialty Start Date End Date Zuleika Denney MD PCP - General Internal Medicine 09/01/19 documented as of this encounter
--- OUTSIDE RECORDS SUMMARY | 2024-09-23 09:34 | XMS_ITS | Clinical Summary ---
Author Organization [facility] Address [address] [place] [address] Care Team Providers Care Ceiling Installer Name Role Phone Unavailable Primary Care Provider Unavailabl e Source Comments [facility],non-owned Affiliates and Associated Physician Practices is amultiple site organization consisting of ambulatory clinics and hospital sitesin [place], [place], [place] and [place]. This disclosure is being madepursuant to the Care Everywhere program and may not contain all information available regarding this patient. Last updated 18.[facility] Allergies No known active allergies Medications * [...] Comments Blood Pressure 122/68 06/05/2020 11:47 AM SECURED ENTRANCE MONITOR Pulse 78 06/05/2020 11:47 AM SECURED ENTRANCE MONITOR Temperature 36.8 C (98.3 F) 06/05/2020 11:47 AM SECURED ENTRANCE MONITOR Respiratory Rate 16 06/05/2020 11:47 AM SECURED ENTRANCE MONITOR Oxygen Saturation 95% 06/05/2020 11:47 AM SECURED ENTRANCE MONITOR Inhaled Oxygen Concentration - - Weight 59 kg (130 lb) 06/05/2020 11:47 AM SECURED ENTRANCE MONITOR Height 157.5 cm (5' 2 ) 06/05/2020 11:47 AM SECURED ENTRANCE MONITOR Body Mass Index 23.78 06/05/2020 11:47 AM SECURED ENTRANCE MONITOR Plan of Treatment Health Maintenance Due Date [...]
== END 2024-09-23 08:57 | disposition home or self-care (01) ==
PROVIDERS: PCP Internal Medicine; Visit Provider Internal Medicine Hematology & Oncology
DX: D69.59 Other secondary thrombocytopenia (principal)
CPT/HCPCS: 76700

== ENCOUNTER 2025-01-23 12:43 | Outpatient (CLI) | payer MEDICARE, SELFPAY ==
--- NOTE | ~2025-01-23 | US_ITS ---
EXAMINATION: US thyroid DATE: 01/23/2025 13:29 INDICATION: Hypothyroidism TECHNIQUE: Multiple ultrasound images of the thyroid were obtained. COMPARISON: None. FINDINGS: The right thyroid lobe measures 2.8 x 1.3 x 1.4 cm. The left thyroid lobe measures 2.7 x 1.3 x 2.2 c m. r1.1 cm wider than tall mixed cystic and solid nodule with isoechoic solid component, smooth miguel ins and with punctate echogenic foci (TI-RADS 4, moderately suspicious , FNA if >=1.5 cm, annual foll owup is >=1 cm). 1.4-1.5 cm mixed solid and cystic TI-RADS 4 left thyroid nodule with similar imaging features. There is normal echotexture, echogenicity and vascular flow throughout the remainder of th e thyroid gland. IMPRESSION: 1. A couple <1.5 cm mixed solid and cystic TI-RADS 4 nodules for which annual ultrasound follow-up wo uld be recommended. Reviewed, dictated and finalized at location A. IMPRESSION: 1. A couple <1.5 cm mixed solid and cystic TI-RADS 4 nodules for which annual u ltrasound follow-up would be recommended.
--- OUTSIDE RECORDS SUMMARY | 2025-01-23 12:46 | XMS_ITS | Encounter Summary ---
Author Organization [facility] Address [address] [place] [address] Care Team Providers Care Product Marketing Coordinator Name Role Phone Zuleika Denney MD Primary Care Provider Encounter Details Date Type Department Care Team (Latest Contact Info) Description 05/06/2003 Outpatient Historical HIS [facility] Mel Hein MD NO ADDRESS ON FILE UNSP ABNORMAL MAMMOGRAM (Primary Dx) Social History Tobacco Use Types Packs/Day Years Used Date Smoking Tobacco: Never Assessed Comments Unknown Sex and Gender Information Value Date Recorded Sex Assigned at Not on file Legal Sex Female 5:16 AM TORQUE TESTER Gender Identity Not on file Sexual Orientation Not on file documented as of this encounter Plan of Treatment Upcoming Encounters Date Type Department Care Team (Late st Contact Info) Description 10/06/2025 10:15 AM CDT Office Visit [facility] Oncology and Hematology - [place] [address] [address] [place] [address] Miki Dover MD [address] [facility] [facility] [address] [place] [address] documented as of this encounter Visit Diagnoses Diagnosis Abnormal mammogram, unspecified- Primary documented in this encounter Care Teams Product Marketing Coordinator Relationship Specialty Start Date End Date Zuleika Denney MD PCP - General Internal Medicine 09/01/19 documented as of this encounter
--- OUTSIDE RECORDS SUMMARY | 2025-01-23 12:46 | XMS_ITS | Encounter Summary ---
Author Organization [facility] Address [address] [place] [address] Care Team Providers Care General Adjuster Name Role Phone Zuleika Denney MD Primary Care Provider Encounter Details Date Type Department Care Team (Late st Contact Info) Description 03/19/2003 Outpatient Historical HIS [facility] Mel Devi MD NO ADDRESS ON FILE SCREENING MAMM-MAILG NEOPL-OTHER (Primary Dx) Social History Tobacco Use Types Packs/Day Years Used Date Smoking Tobacco: Never Assessed Comments Unknown Sex and Gender Information Value Date Recorded Sex Assigned at Not on file Legal Sex Female 5:16 AM SUPERVISOR WOOD ROOM Gender Identity Not on file Sexual Orientation Not on file documented as of this encounter Plan of Treatment Upcoming Encounters Date Type Department Care Team (Late st Contact Info) Description 10/06/2025 10:15 AM CDT Office Visit [facility] Oncology and Hematology - [place] [address] [facility] [address] [place] [address] Miki Dover MD [address] [facility] [address] [place] [address] documented as of this encounter Visit Diagnoses Diagnosis Other screening mammogram- Primary documented in this encounter Care Teams General Adjuster Relationship Specialty Start Date End Date Zuleika Denney MD PCP - General Internal Medicine 09/01/19 documented as of this encounter
--- OUTSIDE RECORDS SUMMARY | 2025-01-23 12:46 | XMS_ITS | Clinical Summary ---
Author Organization [facility] Address [address] [place] [address] Care Team Providers Care Well Testing Operator Name Role Phone Zuleika Denney MD Primary Care Provider Allergies Active Allergy Reactions Criticality Noted Date Comments Esomeprazole Rash Low 09/08/2024 Famotidine Swelling Low 10/02/2024 Omeprazole Rash Low 09/08/2024 Reaction: Rash, , Reaction: Rash, Prochlorperazine Rash Low 10/07/2019 Titanium Swelling Low 10/07/2019 Medications montelukast (Singulair) 10 mg tablet every 24 hours. Active albuterol HFA 90 mcg inhaler ProAir HFA 90 mcg/actuatio n aerosol inhaler Active calcium citrate-vitamin d3 (CITRACAL D) 315-200 mg-unit Tablet Take by mouth daily. Active rosuvastatin (CRESTOR) 5 mg tablet Take 5 mg by mouth daily. 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 Encounters Date Type Department Care Team Description 12/30/2024 External Device Data [facility] ABSTRACTION Provider, Abstract 12/09/2024 External Device Data [facility] ABSTRACTION Provider, Abstract 12/04/2024 External Device Data [facility] ABSTRACTION Provider, Abstract 12/03/2024 External Device Data [facility] ABSTRACTION Provider, Abstract 12/02/2024 External Device Data [facility] ABSTRACTION Provider, Abstract from Last 3 Months Family History Medical [...] on file Legal Sex Female 5:16 AM SHAKER WASHER Gender Identity Not on file Sexual Orientation Not on file Last Filed Vital Signs Vital Sign Reading Time Taken Comments Blood Pressure 128/78 10/02/2024 2:25 PM CDT Pulse 84 10/02/2024 2:25 PM CDT Temperature 36.7 C (98.1 F) 10/02/2024 2:25 PM CDT Respiratory Rate 15 10/02/2024 2:25 PM CDT Oxygen Saturation 96% 10/02/2024 2:25 PM CDT Inhaled Oxygen Concentration - - Weight 65.5 kg (144 lb 6.4 oz) 10/02/2024 2:25 P M CDT Height 157.5 cm (5' 2) 09/08/2024 1:24 PM SHAKER WASHER Body Mass Index 26.41 09/08/2024 1:24 PM SHAKER WASHER Plan of Treatment Upcoming Encounters Date Type Department Care Team (Late st Contact Info) Description 10/06/2025 10:15 AM CDT Office Visit [facility] Oncology and Hematology - [place] [address] [facility] [address] [place] [address] Miki Dover MD [address] [facility] [address] [place] [address] Health Maintenance Due Date Last Done Comments DTAP/TDAP/TD VACCINES (1 - Tdap) 12/13/1967 ZOSTER VACCINE (1 of 2) 1998 PNEUMOCOCCAL VACCINE 50+ YEARS (2 of 2 - PCV) 09/22/19 11 09/21/2009 RSV VACCINE (60+ or ) (1 - 1-dose 75+ series) 12/13/2023 OSTEOPOROSIS SCREENING 09/05/2024 09/05/2019 INFLUENZA VACCINE (#1) 2025 04/15/2018 Insurance MEDICARE PART A AND B Care Teams Well Testing Operator Relationship Specialty Start Date End Date Zuleika Denney MD PCP - General Internal Medicine 09/01/19
--- OUTSIDE RECORDS SUMMARY | 2025-01-23 12:47 | XMS_ITS | Data Portability ---
Author Organization [facility] [employer], Main Office Address [address] [place] [address] Assessment Encounter Date Assessment Date Assessment LastModified by Organization Details LastModified Time 05/28/2024 05/28/2024 01/29/2023: VIT D 23.0 LDL [...] 6.840H, FT4 1.12 Not available 08/25/2024 12:09:45 01/12/2025 01/12/2025 01/29/2023: VIT D 23.0 LDL 106 HBG 11.9L 08/22/2023: TSH 4.860H, FT4 0.95 Alb 4.6H Chol 209,LDL 113 05/26/2024: VIT D 26.0 Chol 217, LDL 124 PLT 123 08/21/2024: Chol 215, LDL 139 TSH 6.840H, FT4 1.12 Not available 01/12/2025 18:55:15 Plan of Treatment Reminders Order Date Submit Date Provider Last Modified By Organization Details Last Modified Time Details Appointments Follow Up 15 2024 10:15A M Zuleika alvarez MD Not available Not available Not available Lab vitamin D, 25-hydrox y, total, serum 2024 025 [facility] (Lab), [address] [place], [address], 01/13/2025 18:20:51 TSH, serum or plasma 2024 025 [facility], [address] [place], [address], 01/13/2025 18:20:51 T4, free, serum 2024 025 [facility], [address] [place], [address], 01/13/2025 18:20:51 lipid panel, serum 2024 025 [facility] (Lab), [address] [place], [address], 01/13/2025 18:20:52 CMP, serum or plasma 2024 025 [facility] (Lab), [address] [place], [address], 01/13/2025 18:20:51 CBC w/ auto diff 2024 025 [facility] (Lab), [address] [place], [address], 01/13/2025 18:20:51 TSH + free T4, serum 2024 025 [facility] (Lab), [address] [place], [address], 01/13/2025 18:20:51 lipid panel, serum [email or web address] (Lab), [address] [place], [address], 08/27/2024 10:00:01 CMP, serum or plasma [facility] [address] [place], [address], 09/09/2024 06:07:39 CBC w/ auto diff 2024 025 [facility] [address] [place], [address], 09/09/2024 05:10:54 TSH + free T4, serum [email or web address] (Lab), [address] [place], [address], 08/27/2024 10:00:01 vitamin D, 25-hydrox y, total, serum [email or web address] (Lab), [address] [place], [address], 08/27/2024 10:00:01 TSH, serum or plasma 2024 [...] available 08/21/2024 11:52:23 T4, free, serum 2023 [email or web address] Not available 08/21/2024 11:52:40 Referral hematolog ist referral - Please call patient to schedule an appointme nt. Thank you. 2024 025 mallory Dover MD, [address], [place], [address], 09/25/2024 15:23:32 hematolog ist referral 2023 024 SILVIO Dover MD, [address], [place], [address], 09/08/2024 17:02:01 Procedures colonosco py screening (PROC) - Please call patient to schedule an appointme nt. Thank you. 2024 025 [email or web address] Nessa Hallman MD, [facility] , [place], [address], 11/24/2024 08:40:45 colonosco py screening (PROC) - Please call patient to schedule. 2023 024 [email or web address] Nessa Hallman MD, [facility] , [place], [address], 08/19/2024 09:02:41 Surgeries None recorded. Imaging US, thyroid - Please call patient to schedule. 2024 025 ATHENAMATIAS [facility] (Imaging), [address] [place] [address], [address], 01/12/2025 14:26:45 DEXA, axial skeleton - Please call patient to schedule. 2024 025 [facility] ([facility]), [address], [place], [address], 01/12/2025 14:22:43 DEXA, axial skeleton - Please call patient to schedule. [address] [facility], [address] [facility] [address], [place], [address], 08/25/2024 12:35:27 US, thyroid - Please call patient to schedule. [address] [facility], [address] [place], [address], 08/25/2024 12:35:53 DEXA, axial skeleton - Please call patient to schedule. [address] [facility], [address] [facility] [address], [place], [address], 09/01/2024 17:09:47 US, thyroid - Please call patient to schedule. [address] [facility], [address] [place], [address], 06/30/2024 09:39:01 Medication Orders Symbicort 160 mcg-4.5 mcg/actua tion HFA aerosol inhaler 2024 025 [id number], [address], [place], [id number], 01/12/2025 10:51:04 albuterol sulfate HFA 90 mcg/actua tion aerosol inhaler 2024 025 [id number], [address], [place], [id number], 01/12/2025 10:51:04 Airsupra 90 mcg-80 mcg/actua tion HFA aerosol inhaler 2024 025 [facility][id number], [address], [place], [id number], 01/12/2025 18:56:12 cholecalc iferol (vitamin D3) 1,250 mcg (50,000 unit) capsule 2023 024 armando acharya [facility] #[id number], [address], [place], [id number], 08/25/2024 12:13:58 Patient TargetsNo targets recorded. Patient InstructionsNo instructions recorded. Reason for Referral Referring Physician: Zuleika Denney, Internal Medicine, Encounter Date: 05/28/2024 [facility]. Thank you. Referring Physician: Zuleika Denney Internal Medicine, Encounter Date: 08/25/2024 Results Created Date Observation Date Name Description Value Unit Range Abnormal Flag Note LastModifiedBy Organization Detail LastModifiedTime 05/26/2005/26/2024 CBC/C OMPLE TE BLD COUNT W/DIF F white blood cells 5.8 x10'3 /uL 4.2-10 .8 Not Available [facility] (Lab) [address] [place], [address], 05/26/2024 18:35:30 05/26/20 24 05/26/2024 CBC/C OMPLE TE BLD COUNT W/DIF F red blood cells 4.17 x10'6 /uL 3.80-5 .20 Not Available [facility] (Lab) [address] [place], [address], 05/26/2024 18:35:30 05/26/20 24 05/26/2024 CBC/C OMPLE TE BLD COUNT W/DIF F hemoglobin 12.4 g/dL 12.0-1 5.6 Not Available [facility] (Lab) [address] [place], [address], 05/26/2024 18:35:30 05/26/20 24 05/26/2024 CBC/C OMPLE TE BLD COUNT W/DIF F hematocrit 38.6 % 35.7-4 5.7 Not Available [facility] (Lab) [address] [place], [address], 05/26/2024 18:35:30 05/26/20 24 05/26/2024 CBC/C OMPLE TE BLD COUNT W/DIF F mean red cell volume 92.6 fL 82.0-9 9.0 Not Available [facility] (Lab) [address] [place], [address], 05/26/2024 18:35:30 05/26/20 24 05/26/2024 CBC/C OMPLE TE BLD COUNT W/DIF F mean red cell hemoglobin 29.7 pg 27.0-3 3.0 Not Available [facility] (Lab) [address] [place], [address], 05/26/2024 18:35:30 05/26/20 24 05/26/2024 CBC/C OMPLE TE BLD COUNT W/DIF F mean RBC HGB concentratio n 32.1 g/dL 31.0-3 6.0 Not Available [facility] (Lab) [address] [place], [address], 05/26/2024 18:35:30 05/26/20 24 05/26/2024 CBC/C OMPLE TE BLD COUNT W/DIF F red cell distribution width 12.6 % 11.8-1 5.5 Not Available [facility] (Lab) [address] [place], [address], 05/26/2024 18:35:30 05/26/20 24 05/26/2024 CBC/C OMPLE TE BLD COUNT W/DIF F platelets 123 x10'3 /uL 150-40 0 low Not Available [facility] (Lab) [address] [place], [address], 05/26/2024 18:35:30 05/26/20 24 05/26/2024 CBC/C OMPLE TE BLD COUNT W/DIF F mean platelet volume 11.4 fL 9.0-12 .4 Not Available [facility] (Lab) [address] [place], [address], 05/26/2024 18:35:30 05/26/20 24 05/26/2024 CBC/C OMPLE TE BLD COUNT W/DIF F neutrophils 67.3 % 39.0-7 2.0 Not Available [facility] (Lab) [address] [place], [address], 05/26/2024 18:35:30 05/26/20 24 05/26/2024 CBC/C OMPLE TE BLD COUNT W/DIF F lymphocytes 20.0 % 16.0-4 7.0 Not Available [facility] (Lab) [address] [place], [address], 05/26/2024 18:35:30 05/26/20 24 05/26/2024 CBC/C OMPLE TE BLD COUNT W/DIF F monocytes 9.0 % 5.0-12 .0 Not Available [facility] (Lab) [address] [place], [address], 05/26/2024 18:35:30 05/26/20 24 05/26/2024 CBC/C OMPLE TE BLD COUNT W/DIF F eosinophils 2.6 % 1.0-7. 0 Not Available [facility] (Lab) [address] [place], [address], 05/26/2024 18:35:30 05/26/20 24 05/26/2024 CBC/C OMPLE TE BLD COUNT W/DIF F basophils 0.9 % 0.0-2. 0 Not Available [facility] (Lab) [address] [place], [address], 05/26/2024 18:35:30 05/26/20 24 05/26/2024 CBC/C OMPLE TE BLD COUNT W/DIF F immature granulocytes 0.2 % 0.00-0 .50 Not Available [facility] (Lab) [address] [place], [address], 05/26/2024 18:35:30 05/26/20 24 05/26/2024 CBC/C OMPLE TE BLD COUNT W/DIF F neutrophils, absolute count 3.90 x10'3 /uL 1.5-8. 0 Not Available [facility] (Lab) [address] [place], [address], 05/26/2024 18:35:30 05/26/20 24 05/26/2024 CBC/C OMPLE TE BLD COUNT W/DIF F lymphocytes, absolute count 1.16 x10'3 /uL 1.07-3 .43 Not Available [facility] (Lab) [address] [place], [address], 05/26/2024 18:35:30 05/26/20 24 05/26/2024 CBC/C OMPLE TE BLD COUNT W/DIF F monocytes, absolute count 0.52 x10'3 /uL 0.29-0 .99 Not Available [facility] (Lab) [address] [place], [address], 05/26/2024 18:35:30 05/26/20 24 05/26/2024 CBC/C OMPLE TE BLD COUNT W/DIF F eosinophils, absolute count 0.15 x10'3 /uL 0.02-0 .53 Not Available [facility] (Lab) [address] [place], [address], 05/26/2024 18:35:30 05/26/20 24 05/26/2024 CBC/C OMPLE TE BLD COUNT W/DIF F basophils, absolute count 0.05 x10'3 /uL 0.01-0 .08 Not Available [facility] (Lab) [address] [place], [address], 05/26/2024 18:35:30 05/26/20 24 05/26/2024 CBC/C OMPLE TE BLD COUNT W/DIF F immature granulocytes ,absolute 0.01 x10'3 /uL 0.00-0 .05 Not Available [facility] (Lab) [address] [place], [address], 05/26/2024 18:35:30 05/26/20 24 05/26/2024 CBC/C OMPLE TE BLD COUNT W/DIF F nucleated red blood cells 0.0 % -0 Not Available [facility] (Lab) [address] [place], [address], 05/26/2024 18:35:30 05/26/20 24 05/26/2024 CBC/C OMPLE TE BLD COUNT W/DIF F NRBC# 0.00 x10'3 /uL Not Available [facility] (Lab) [address] [place], [address], 05/26/2024 18:35:30 05/26/20 24 05/26/2024 LIPID PANEL cholesterol 217 mg/dL 140-19 9 high NIH KELLY NSUS RECOM MENDA TION FOR RADHA STERO L: ADULT CHILD LOW RISK: <200 <170 BORDE RLINE : <200- 239 ----- HIGH RISK: >240 >200 Not Available [facility] (Lab) [address] [place], [address], 05/26/2024 18:53:44 05/26/20 24 05/26/2024 LIPID PANEL triglyceride s 52 mg/dL 0-150 NIH KELLY NSUS REPOR T RECOM MENDA TION FOR TRIGL YCERI GRACE: ADULT CHILD LOW RISK: <150 ----- BODER LINE: 150-1 99 ----- HIGH RISK: >200 ----- Not Available [facility] (Lab) [address] [place], [address], 05/26/2024 18:53:44 05/26/20 24 05/26/2024 LIPID PANEL HDL cholesterol 83 mg/dL 40- Not Available [facility] (Lab) [address] [place], [address], 05/26/2024 18:53:44 05/26/20 24 05/26/2024 LIPID PANEL [...] WILL NOT BE REPOR EH. Not Available [facility] (Lab) [address] [place], [address], 05/26/2024 18:53:44 05/26/20 24 05/26/2024 COMPR EHENS SONG METAB OLIC PANEL sodium 138 mmol/ L 137-14 5 Not Available [facility] (Lab) [address] [place], [address], 05/26/2024 18:53:59 05/26/20 24 05/26/2024 COMPR EHENS SONG METAB OLIC PANEL potassium 4.2 mmol/ L 3.5-5. 1 Not Available [facility] (Lab) [address] [place], [address], 05/26/2024 18:53:59 05/26/20 24 05/26/2024 COMPR EHENS SONG METAB OLIC PANEL chloride 106 mmol/ L 98-107 Not Available [facility] (Lab) [address] [place], [address], 05/26/2024 18:53:59 05/26/20 24 05/26/2024 COMPR EHENS SONG METAB OLIC PANEL carbon dioxide 28 mmol/ L 22-30 Not Available [facility] (Lab) [address] [place], [address], 05/26/2024 18:53:59 05/26/20 24 05/26/2024 COMPR EHENS SONG METAB OLIC PANEL anion gap 8.2 mmol/ L 14-22 low Not Available [facility] (Lab) [address] [place], [address], 05/26/2024 18:53:59 05/26/20 24 05/26/2024 COMPR EHENS SONG METAB OLIC PANEL glucose 90 mg/dL 70-99 Not Available [facility] (Lab) [address] [place], [address], 05/26/2024 18:53:59 05/26/20 24 05/26/2024 COMPR EHENS SONG METAB OLIC PANEL BUN 13 mg/dL 8-19 Not Available [facility] (Lab) [address] [place], [address], 05/26/2024 18:53:59 05/26/20 24 05/26/2024 COMPR EHENS SONG METAB OLIC PANEL creatinine 0.78 mg/dL 0.66-1 .25 Not Available [facility] (Lab) [address] [place], [address], 05/26/2024 18:53:59 05/26/20 24 05/26/2024 COMPR EHENS SONG METAB OLIC PANEL GFR >60 Refer ence Range : [place] ge GFR Healt hy Adult : >60 [...] or ethni c subgr oups, such as Orin nics. Outsi de the valid ated giancarlo [...] is avail able on the [facility] websi te: [email or web address] :[email or web address] rg/pr ofess ional s/kdo qi/gf r_cal culat or Not Available [facility] (Lab) [address] [place], [address], 05/26/2024 18:53:59 05/26/20 24 05/26/2024 COMPR EHENS SONG METAB OLIC PANEL alkaline phosphatase 88 U/L 38-126 Not Available [facility] (Lab) [address] [place], [address], 05/26/2024 18:53:59 05/26/20 24 05/26/2024 COMPR EHENS SONG METAB OLIC PANEL alanine aminotransfe rase 25 U/L 0-35 Not Available [facility] (Lab) [address] [place], [address], 05/26/2024 18:53:59 05/26/20 24 05/26/2024 COMPR EHENS SONG METAB OLIC PANEL aspartate aminotransfe rase 33 U/L 15-37 Not Available [facility] (Lab) [address] [place], [address], 05/26/2024 18:53:59 05/26/20 24 05/26/2024 COMPR EHENS SONG METAB OLIC PANEL bilirubin, total 0.70 mg/dL 0.20-1 .30 Not Available [facility] (Lab) [address] [place], [address], 05/26/2024 18:53:59 05/26/20 24 05/26/2024 COMPR EHENS SONG METAB OLIC PANEL calcium 9.3 mg/dL 8.4-10 .2 Not Available [facility] (Lab) [address] [place], [address], 05/26/2024 18:53:59 05/26/20 24 05/26/2024 COMPR EHENS SONG METAB OLIC PANEL total protein 7.4 g/dL 6.3-8. 2 Not Available [facility] (Lab) [address] [place], [address], 05/26/2024 18:53:59 05/26/20 24 05/26/2024 COMPR EHENS SONG METAB OLIC PANEL albumin 4.3 g/dL 3.0-4. 4 Not Available [facility] (Lab) [address] [place], [address], 05/26/2024 18:53:59 05/26/20 24 05/26/2024 COMPR EHENS SONG METAB OLIC PANEL globulin 3.1 g/dL 2.6-4. 2 Not Available [facility] (Lab) [address] [place], [address], 05/26/2024 18:53:59 05/26/20 24 05/26/2024 COMPR EHENS SONG METAB OLIC PANEL A/G ratio 1.4 ratio 1.0-2. 0 Not Available [facility] (Lab) [address] [place], [address], 05/26/2024 18:53:59 05/26/20 24 05/26/2024 T4 FREE free T4 0.96 NG/dL 0.78-2 .19 Not Available [facility] (Lab) [address] [place], [address], 05/26/2024 19:13:28 05/26/20 24 05/26/2024 VITAM IN D 25-HY DROXY [id number] 26.0 NG/mL 30-100 low Vitam in D Statu s: Defic ient: <20 ng/mL Insuf ficie nt: 20-29 ng/mL Suffi cient : 30-10 0 ng/mL Not Available [facility] (Lab) [address] [place], [address], 05/26/2024 19:13:34 05/26/20 24 05/26/2024 TSH thyroid-stim ulating hormone 3.840 uIU/m L 0.465- 4.680 Not Available [facility] (Lab) [address] [place], [address], 05/26/2024 19:24:21 08/21/19 25 08/23/2024 TSH+F REE T4 TSH 6.840 uIU/m L 0.450- 4.500 above high normal Not Available [facility] ([facility]) [address] [place], [address], 08/23/2024 09:38:58 08/21/19 25 08/23/2024 TSH+F REE T4 T4,free(dire ct) 1.12 NG/dL 0.82-1 .77 normal Not Available [facility] ([facility]) [address] [place], [address], 08/23/2024 09:38:58 08/21/19 25 08/23/2024 CBC WITH DIFFE RENTI AL/PL ATELE T WBC 4.9 x10e3 /uL 3.4-10 .8 normal Not Available [facility] ([facility]) [address] [facility], [place], [address], 08/23/2024 09:38:59 08/21/19 25 08/23/2024 CBC WITH DIFFE RENTI AL/PL ATELE T RBC 4.24 x10e6 /uL 3.77-5 .28 normal Not Available [facility] ([facility]) [address] [facility], [place], [address], 08/23/2024 09:38:59 08/21/19 25 08/23/2024 CBC WITH DIFFE RENTI AL/PL ATELE T hemoglobin 12.3 g/dL 11.1-1 5.9 normal Not Available [facility] ([facility]) [address] [facility], [place], [address], 08/23/2024 09:38:59 08/21/19 25 08/23/2024 CBC WITH DIFFE RENTI AL/PL ATELE T hematocrit 38.1 % 34.0-4 6.6 normal Not Available [facility] ([facility]) [address] [place], [address], 08/23/2024 09:38:59 08/21/19 25 08/23/2024 CBC WITH DIFFE RENTI AL/PL ATELE T MCV 90 fL 79-97 normal Not Available [facility] ([facility]) [address] [place], [address], 08/23/2024 09:38:59 08/21/19 25 08/23/2024 CBC WITH DIFFE RENTI AL/PL ATELE T MCH 29.0 pg 26.6-3 3.0 normal Not Available [facility] ([facility]) [address] [place], [address], 08/23/2024 09:38:59 08/21/19 25 08/23/2024 CBC WITH DIFFE RENTI AL/PL ATELE T MCHC 32.3 g/dL 31.5-3 5.7 normal Not Available [facility] ([facility]) [address] [facility], [place], [address], 08/23/2024 09:38:59 08/21/19 25 08/23/2024 CBC WITH DIFFE RENTI AL/PL ATELE T RDW 12.2 % 11.7-1 5.4 Not Available [facility] ([facility]) [address] [facility], [place], [address], 08/23/2024 09:38:59 08/21/19 25 08/23/2024 CBC WITH DIFFE RENTI AL/PL ATELE T platelets TNP x10e3 /uL Unabl e to perfo rm an accur ate plate let count due to aggre gatio n of the plate lets. Not Available [facility] ([facility]) [address] [facility], [place], [address], 08/23/2024 09:38:59 08/21/19 25 08/23/2024 CBC WITH DIFFE RENTI AL/PL ATELE T neutrophils 60 % not estab. normal Not Available [facility] ([facility]) [address] [facility], [place], [address], 08/23/2024 09:38:59 08/21/19 25 08/23/2024 CBC WITH DIFFE RENTI AL/PL ATELE T lymphs 26 % not estab. normal Not Available [facility] ([facility]) [address] [facility], [place], [address], 08/23/2024 09:38:59 08/21/19 25 08/23/2024 CBC WITH DIFFE RENTI AL/PL ATELE T monocytes 10 % not estab. normal Not Available [facility] ([facility]) [address] [facility], [place], [address], 08/23/2024 09:38:59 08/21/19 25 08/23/2024 CBC WITH DIFFE RENTI AL/PL ATELE T eos 3 % not estab. normal Not Available [facility] ([facility]) [address] [place], [address], 08/23/2024 09:38:59 08/21/19 25 08/23/2024 CBC WITH DIFFE RENTI AL/PL ATELE T basos 1 % not estab. normal Not Available [facility] ([facility]) [address] [facility], [place], [address], 08/23/2024 09:38:59 08/21/19 25 08/23/2024 CBC WITH DIFFE RENTI AL/PL ATELE T immature cells MANAGER FINANCE Not Available [facility] ([facility]) [address] [facility], [place], [address], 08/23/2024 09:38:59 08/21/19 25 08/23/2024 CBC WITH DIFFE RENTI AL/PL ATELE T neutrophils (absolute) 3.0 x10e3 /uL 1.4-7. 0 normal Not Available [facility] ([facility]) [address] [place], [address], 08/23/2024 09:38:59 08/21/19 25 08/23/2024 CBC WITH DIFFE RENTI AL/PL ATELE T lymphs (absolute) 1.3 x10e3 /uL 0.7-3. 1 normal Not Available [facility] ([facility]) [address] [place], [address], 08/23/2024 09:38:59 08/21/19 25 08/23/2024 CBC WITH DIFFE RENTI AL/PL ATELE T monocytes(ab solute) 0.5 x10e3 /uL 0.1-0. 9 normal Not Available [facility] ([facility]) [address] [place], [address], 08/23/2024 09:38:59 08/21/19 25 08/23/2024 CBC WITH DIFFE RENTI AL/PL ATELE T eos (absolute) 0.1 x10e3 /uL 0.0-0. 4 normal Not Available [facility] ([facility]) [address] [facility], [place], [address], 08/23/2024 09:38:59 08/21/19 25 08/23/2024 CBC WITH DIFFE RENTI AL/PL ATELE T baso (absolute) 0.0 x10e3 /uL 0.0-0. 2 normal Not Available [facility] ([facility]) [address] [facility], [place], [address], 08/23/2024 09:38:59 08/21/19 25 08/23/2024 CBC WITH DIFFE RENTI AL/PL ATELE T immature granulocytes 0 % not estab. Not Available [facility] ([facility]) [address] [facility], [place], [address], 08/23/2024 09:38:59 08/21/19 25 08/23/2024 CBC WITH DIFFE RENTI AL/PL ATELE T immature grans (abs) 0.0 x10e3 /uL 0.0-0. 1 Not Available [facility] ([facility]) [address] [facility], [place], [address], 08/23/2024 09:38:59 08/21/19 25 08/23/2024 CBC WITH DIFFE RENTI AL/PL ATELE T NRBC MANAGER FINANCE Not Available [facility] ([facility]) [address] [facility], [place], [address], 08/23/2024 09:38:59 08/21/19 25 08/23/2024 CBC WITH DIFFE RENTI AL/PL ATELE T hematology comments: NOTE: Verif ied by iraj jara on Noted . Not Available [facility] ([facility]) [address] [facility], [place], [address], 08/23/2024 09:38:59 08/21/19 25 08/23/2024 COMP. METAB OLIC PANEL (14) glucose 80 mg/dL 70-99 normal Not Available [facility] ([facility]) [address] [facility] [place], [address], 08/23/2024 09:39:00 08/21/19 25 08/23/2024 COMP. METAB OLIC PANEL (14) BUN 14 mg/dL 8-27 normal Not Available [facility] ([facility]) [address] [facility] [place], [address], 08/23/2024 09:39:00 08/21/19 25 08/23/2024 COMP. METAB OLIC PANEL (14) creatinine 0.88 mg/dL 0.57-1 .00 normal Not Available [facility] ([facility]) [address] [facility] [place], [address], 08/23/2024 09:39:00 08/21/19 25 08/23/2024 COMP. METAB OLIC PANEL (14) eGFR 68 mL/mi n/1.7 3 >59 normal Not Available [facility] ([facility]) [address] [facility] [place], [address], 08/23/2024 09:39:00 08/21/19 25 08/23/2024 COMP. METAB OLIC PANEL (14) BUN/creatini ne ratio 16 12-28 normal Not Available [facility] ([facility]) [address] [place], [address], 08/23/2024 09:39:00 08/21/19 25 08/23/2024 COMP. METAB OLIC PANEL (14) sodium 137 mmol/ L 134-14 4 normal Not Available [facility] ([facility]) [address] [place], [address], 08/23/2024 09:39:00 08/21/19 25 08/23/2024 COMP. METAB OLIC PANEL (14) potassium 4.0 mmol/ L 3.5-5. 2 normal Not Available [facility] ([facility]) [address] [place], [address], 08/23/2024 09:39:00 08/21/19 25 08/23/2024 COMP. METAB OLIC PANEL (14) chloride 100 mmol/ L 96-106 normal Not Available [facility] ([facility]) [address] [place], [address], 08/23/2024 09:39:00 08/21/19 25 08/23/2024 COMP. METAB OLIC PANEL (14) carbon dioxide, total 25 mmol/ L 20-29 normal Not Available [facility] ([facility]) [address] [place], [address], 08/23/2024 09:39:00 08/21/19 25 08/23/2024 COMP. METAB OLIC PANEL (14) calcium 9.3 mg/dL 8.7-10 .3 normal Not Available [facility] ([facility]) [address] [place], [address], 08/23/2024 09:39:00 08/21/19 25 08/23/2024 COMP. METAB OLIC PANEL (14) protein, total 7.6 g/dL 6.0-8. 5 normal Not Available [facility] ([facility]) [address] [place], [address], 08/23/2024 09:39:00 08/21/19 25 08/23/2024 COMP. METAB OLIC PANEL (14) albumin 4.5 g/dL 3.8-4. 8 normal Not Available [facility] ([facility]) [address] [place], [address], 08/23/2024 09:39:00 08/21/19 25 08/23/2024 COMP. METAB OLIC PANEL (14) globulin, total 3.1 g/dL 1.5-4. 5 Not Available [facility] ([facility]) [address] [place], [address], 08/23/2024 09:39:00 08/21/19 25 08/23/2024 COMP. METAB OLIC PANEL (14) bilirubin, total 0.6 mg/dL 0.0-1. 2 normal Not Available [facility] ([facility]) [address] [facility], [address], 08/23/2024 09:39:00 08/21/19 25 08/23/2024 COMP. METAB OLIC PANEL (14) alkaline phosphatase 99 IU/L 44-121 normal Not Available [facility] ([facility]) [address] [facility], [address], 08/23/2024 09:39:00 08/21/19 25 08/23/2024 COMP. METAB OLIC PANEL (14) AST (SGOT) 15 IU/L 0-40 normal Not Available [facility] ([facility]) [address] [place], [address], 08/23/2024 09:39:00 08/21/19 25 08/23/2024 COMP. METAB OLIC PANEL (14) ALT (SGPT) 13 IU/L 0-32 normal Not Available [facility] ([facility]) [address] [place], [address], 08/23/2024 09:39:00 08/21/19 25 08/23/2024 LIPID PANEL cholesterol, total 215 mg/dL 100-19 9 above high normal Not Available [facility] ([facility]) [address] [place], [address], 08/23/2024 09:39:01 08/21/19 25 08/23/2024 LIPID PANEL triglyceride s 62 mg/dL 0-149 normal Not Available [facility] ([facility]) [address] [place], [address], 08/23/2024 09:39:01 08/21/19 25 08/23/2024 LIPID PANEL HDL cholesterol 65 mg/dL >39 normal Not Available [facility] ([facility]) [address] [facility], [place], [address], 08/23/2024 09:39:01 08/21/19 25 08/23/2024 LIPID PANEL VLDL cholesterol akira 11 mg/dL 5-40 Not Available [facility] ([facility]) [address] [facility], [address], 08/23/2024 09:39:01 08/21/19 25 08/23/2024 LIPID PANEL LDL chol calc ([facility]) 139 mg/dL 0-99 above high normal Not Available [facility] ([facility]) [address] [facility], [place], [address], 08/23/2024 09:39:01 08/21/19 25 08/23/2024 LIPID PANEL LDL calc comment: MANAGER FINANCE Not Available [facility] ([facility]) [address] [facility], [place], [address], 08/23/2024 09:39:01 08/21/19 25 08/23/2024 VITAM IN [...] 1. IOM (Inst itute of Medic ine). 2009. Dieta ry refer ence inttaqueria es for calci um and D. Gerber lowe [place]: The Natio nal [facility] Press . 2. Maribell fernández MF, Binhanane ey [place], Smita off-F errar i CORTEZ, et al. Evalu ation , treat ment, and preve ntion of vitam in D defic iency : an Endoc rine Socie ty clini akira pract ice guide line. JCEM. 2010; 96(7) :1911 -30. Not Available [facility] ([facility]) [address], [place], [address], 08/23/2024 09:39:03 09/24/19 25 09/23/2024 imagi ng/di agnos tic resul t No observ ation record ed. [facility] [address], [place], [address], 09/23/2024 18:48:47 Result Notes None recorded. Problems Name Problem SNOMED Code Status Onset Date Resolution Date Notes Provider Name and Address Organization Details Recorded Time Acute sinusitis 32851132 Active 2021 Not Available [facility] 00:48:21 Vitamin D deficiency 05052134 Active 2022 Kristine Bruno RN [facility], [employer] 3 09:40:41 Asthma 055601977 Active 2022 Zuleika slater MD [address] [address], [place], [address] , [employer] 3 10:32:48 Thrombocytope tino disorder 710133891 Active 2022 Zuleika slater MD [address], [place], [address] , [employer] 3 10:32:57 Hyperlipidemi a 29578459 Active 2022 Zuleika slater MD [address], [place], [address] , [employer] 3 10:33:00 Deficiency of vitamin D2 991534251 Active 2022 Zuleika slater MD [address], [place], [address] , [employer] 3 10:33:06 Anemia 424169117 Active 2022 Zuleika slater MD [address] [facility], [place], [address] , [facility] [employer] [facility] 3 11:04:29 Hypothyroidis m 15250784 Active 2023 Zuleika slater MD [address] [facility], [place], [address] , [facility] [employer] [facility] 4 10:38:35 Cough 05031645 Active 2024 Dmitriy Fitzpatrick CMA null, ID [facility] [employer] [facility] 5 15:21:49 Allergic reaction 151229307 Active 2024 Zuleika slater MD [address] [facility], [place], [address] , [employer] [facility] [employer] [facility] 5 18:39:17 Problem Notes None recorded. Procedures Surgical History Date Name Laterality Status Provider Name and Address Organization Details Recorded Time procedure on wrist completed Not Available [facility] 09/13/2022 00:43:48 Imaging Results None recorded. Procedure Notes None recorded. Medical Equipment None Reported. Allergies Allergen ID Allergen Name Allergen Category Reaction Reaction Severity Criticality Documentation Date Start Date Code Code System Note Provider Name and Address Organization Details Recorded Time 602 titanium Not available Not available Not available Not available 09/13/2022 94513 47 RxNorm Not Available [facility] 3 00:53:36 603 Compazine medicatio n Not available Not available Not available 09/13/2022 04541 6 RxNorm Not Available [facility] 3 00:53:36 64221 Product containin g hydrogen/ potassium adenosine triphosph atase enzyme system inhibitor (product) medicatio n Not available Not available Not available 09/22/2024 17861 5006 SNOMED Zuleika alvarez MD [address], [place], [address], [facility] [employer] [facility] 5 17:49:21 15173 Pepcid medicatio n Not available Not available Not available 09/22/2024 87035 8 RxNorm Zuleika alvarez MD [address] [facility] [facility] [address], [place], [address] , [facility] [employer] [facility] 17:49:29 Medications Name Sig Start Date Stop Date Status Note LastModified by Organization Details LastModified Time amoxicill in 500 mg capsule TK 1 C PO Q 8 H active Not Available Not Available No t Available Augmentin 875 mg-125 mg tablet Take 1 tablet every 12 hours by oral route. 01/12 completed Not Available Not Available Not Available clindamyc in HCl 300 mg capsule TAKE [...] GRAM VAGINALL Y 3 TIMES A WEEK 01/12 completed Not Available Not Available Not Available levofloxa lawrence 750 mg tablet TK 1 T PO QD FOR 7 DAYS 04/08 completed Not Available Not Available Not Available methylpre dnisolone 4 mg tablets in a dose pack FOLLOW PACKAGE DIRECTIO NS 01/31 completed Not Available Not Available Not Available albuterol sulfate HFA 90 mcg/actua tion aerosol inhaler INHALE 2 PUFFS BY MOUTH EVERY 4 HOURS NEEDED 2024 active Not Available Not Available Not Avai lable fluticaso ne propionat e 50 mcg/actua tion nasal spray,deborah pension SHAKE LQ AND U 1 SPR IEN QD 01/12 completed Not Available Not Available Not Available loratadin e 10 mg tablet TK [...] INHALE 2 PUFFS BY MOUTH TWICE DAILY 2024 active Not Available Not Available Not Avai lable cholecalc iferol (vitamin D3) 1,250 mcg (50,000 unit) capsule TAKE ONE CAPSULE BY MOUTH ONCE A WEEK 08/25 completed Not Available Not Available Not Available Symbicort 2 puffs 1 time every day 09/05 completed duplicat e Not Available Not Available Not Available GaviLyte- G 236 gram-22.7 4 gram-6.74 gram-5.86 gram oral solution 01/12 completed Not Available Not Available Not Available ProChambe r USE DIRECTED active Not Available Not Available No t Available BinaxNOW COVID-19 Ag Self Test kit TEST DIRECTED TODAY 01/31 completed Not Available Not Available Not Available Airsupra 90 mcg-80 mcg/actua tion HFA aerosol inhaler Inhale 2 inhalati ons 4 times a day by inhalati on route as needed for 90 days. 2024 active Not Available Not Available Not Avai lable Vitals Date Recorded Body height Body mass index (BMI) Body weight Body temperature Heart rate Oxygen saturation Oxygen saturation in Arterial blood by Pulse oximetry Systolic And Diastolic Provider Name and Address Organization Details Last Updated DateTime 5 157.48 cm 26.5 kg/m2 39381.8 9 g 97.6 [degF] 74 /min 98 % 98 % 118/72 mm[Hg] Blessing Galvez MA ID [facility] [employer] 5 11:37:44 Date Recorded Body height Body mass index (BMI) Body weight Body temperature Oxygen saturation Oxygen saturation in Arterial blood by Pulse oximetry Heart rate Systolic And Diastolic Provider Name and Address Organization Details Last Updated DateTime 5 157.48 cm 26.7 kg/m2 99552.4 9 g 97.7 [degF] 97 % 97 % 81 /min 120/60 mm[Hg] Sumaya Lopes [facility] [employer] 5 16:39:22 Date Recorded Body height Body mass index (BMI) Body weight Body temperature Heart rate Oxygen saturation Oxygen saturation in Arterial blood by Pulse oximetry Systolic And Diastolic Provider Name and Address Organization Details Last Updated DateTime 5 157.48 cm 25.1 kg/m2 15078.1 5 g 98.2 [degF] 70 /min 97 % 97 % 128/68 mm[Hg] Mary Kate Lugo MA [employer] [facility] [employer] 5 10:37:30 Date Recorded Body height Body mass index (BMI) Body weight Body temperature Systolic And Diastolic Provider Name and Address Organization Details Last Updated DateTime 05/28/2024 157.48 cm 27.4 kg/m2 68405.8 6 g 97.5 [degF] 122/60 mm[Hg] Sujey Bynum Colleen ID [facility] [employer] 4 10:36:16 Social History Question Answer Notes LastModified by Organizat ion Details LastModified Time Tobacco Smoking Status Never Smoker Not Available [facility] 09/13/2022 00:43:39 Do You Have An Advance Directive? No Information not available 01/31/2023 Are You Blind Or Do You Have Difficulty Seeing? No Information not available 01/31/2023 In The 14 Days Before Symptom Onset, Have You Had Close Contact With A Laboratory-confir med COVID-19 While That Case Was Ill? No [id number] Information not available 09/13/2022 In The 14 Days Before Symptom Onset, Have You Had Close Contact With A Person Who Is Under Investigation For COVID-19 While That Person Was Ill? No [id number] Information not available 09/13/2022 Are You Deaf Or Do You Have Serious Difficulty Hearing? No Information not available 01/31/2023 What Type Of Diet Are You Following? REGULAR [id number] Information not available 09/13/2022 Have There Been Any Changes To Your Family Or Social Situation? No Information no t available 01/12/2025 What Is The Fluoride Status Of Your Home? Unknown Information not available 01/31/2023 Are There Any Guns Present In Your Home? No Information not available 01/31/2023 Do You Use Insect Repellent Routinely? No Information not available 01/12/2025 Where [facility] You Live? [facility] Information not available 01/31/2023 Do You Have A Medical Power Of Multiple Wire Sawyer? Yes Information not available 01/31/2023 What Was The Date Of Your Most Recent Tobacco Screening? 01/12/2025 Information not available 01/12/2025 Do You Have Any Pets? Yes Information not available 01/31/2023 What Is Your Relationship Status? [id number] Information not available 09/13/2022 Do You Use Your Seat Belt Or Car Seat Routinely? Yes Information not available 01/31/2023 Do You Have Smoke And Carbon Monoxide Detectors In Your Home? No Information not available 01/31/2023 Are You Passively Exposed To Smoke? No Information no t available 01/31/2023 Are There Any Smokers In Your House? No Information not available 01/31/2023 How Much Tobacco Do You Smoke? No [id number] Information not available 09/13/2022 Do You Use Sunscreen Routinely? No Information not available 01/12/2025 Has Tobacco Cessation Counseling Been Provided? No N/a Information not available 01/31/2023 How Many Years Have You Smoked Tobacco? 0 MIGRATION.[id number] 6614 Information not available 09/13/2022 Have You Recently Traveled Abroad? No Information not available 01/31/2023 Do You Have Difficulty Walking Or Climbing Stairs? No Information not available 01/31/2023 Do You Have Any Dietary Restrictions? No MIGRATION.[id number] 4091 Information not available 09/13/2022 Sex: Female Functional Status Question Answer Note LastModified by Organizat ion Details LastModified Time Do you use any illicit or recreational drugs? No MIGRATION.[id number] 8629 Information not available 09/13/2022 Do you or have you ever used any other forms of tobacco or nicotine? No Information not available 01/31/2023 What is your level of alcohol consumption? None MIGRATION.[id number] Information not available 09/13/2022 Do you or have you ever used smokeless tobacco? Never used smokeless tobacco MIGRATION.336805 0806 Information not available 09/13/2022 Are you currently employed? No Information not available 01/31/2023 Do you have transportation difficulties? No Information not available 01/31/2023 Are you able to walk? [employer]OREST Information not available 01/31/2023 Do you have difficulty doing errands alone? No Information not available 01/31/2023 Are you able to care for yourself? Yes Information n ot available 01/31/2023 Do you have difficulty dressing or bathing? No Information not available 01/31/2023 Do you or have you ever used e-cigarettes or vape? Never used electronic cigarettes MIGRATION.[id number] Information not available 09/13/2022 What is your exercise level? None MIGRATION.[id number] 7159 Information not available 09/13/2022 Mental Status Question Answer Note LastModified by Organizat ion Details LastModified Time Do you feel stressed (tense, restless, nervous, or anxious, or unable to sleep at night)? [id number] Information not available 01/31/2023 Do you have difficulty concentrating, remembering or making decisions? No Information no t available 01/31/2023 Family History Relationship Description Onset Age of this Age Resolved Age Notes LastModified by Organization Details LastModified Time Father Diabetes mellitus [id number] Not available 09/13/2022 00:43:54 Father Cardiovascul ar injury [id number] Not available 09/13/2022 00:43:54 Mother History of hypertension [id number] Not available 09/13/2022 00:43:54 Medical History Condition [...] GLAUCOMA N FOOT PROBLEM N DIVERTICULITIS N CHICKENPOX N SLEEP APNEA N INFECTIOUS DISEASE N PROSTATE N HEART ARRHYTHMIA N INSOMNIA N HIGH CHOLESTEROL / HYPERLIPIDEMIA Y EYE PROBLEMS N HYPERTHYROIDISM N EDEMA N CHRONIC PAIN SYNDROME N HYPOTHYROIDISM N CONSTIPATION N CAROTID BLOCKAGE N BACK / NECK PROBLEMS N ATHEROSCLEROSIS [...] PULMONARY EMBOLISM N AUTOIMMUNE DISEASE N Gynecological History Statement/Question Response How many live births 0 Date of Last Colonoscopy Date of Last Mammogram Date of LMP Most Recent Bone Density Date of Last Pap Current Control Method Menopause Obstetrics History GPAL:G 0 P 0 0 0 0 Type Value Multiple Births 0 Full Term 0 Induced 0 Spontaneous 0 Premature 0 Living 0 Ectopics 0 Total 0 Immunizations Vaccine Type Date Status Note Provider Nam e and Address Organization Details Recorded Time Influenza, split virus, quadrivalent, preservative 8 completed Not Available [facility] 09/13/2022 00:53:31 Influenza, high-dose, quadrivalent, PF 0 completed Not Available [facility] 09/13/2022 00:53:31 Pneumococcal conjugate PCV 13 0 completed Jack Linton LPN null, [facility] 01/16/2024 14:11:08 Influenza, high-dose, quadrivalent, PF 2 completed Jack Linton LPN null, [facility] 01/16/2024 14:11:08 COVID-19, mRNA, LNP-S, PF, 30 mcg/0.3 mL dose 1 completed Jack Linton LPN null, [facility] 01/16/2024 14:11:08 COVID-19, mRNA, LNP-S, PF, 30 mcg/0.3 mL dose 1 completed Jack Linton LPN null, [facility] 01/16/2024 14:11:08 COVID-19, mRNA, LNP-S, PF, 30 mcg/0.3 mL dose 1 completed Jack Linton LPN null, [facility] 01/16/2024 14:11:08 Influenza, high-dose, trivalent, PF 4 completed Zuleika Denney MD [address] [place], [place] [address], [address], [address], [facility] [place] [employer] 05/28/2024 18:35:01 Past Encounters Encounter ID Performer Location Encounter Start Date Encounter Closed Date Diagnosis/Indication Diagnosis SNOMED-CT Code Diagnosis ICD10 Code Diagnosis Note [id number] Zuleika slater MD [facility] Internal Med [place] [address] [place] [address] [place] [address] 09/13/2020 00:00:00 09/13/2020 16:55:42 [id number] Zuleika slater MD [facility] Internal Med [place] [address] [place] [address] [place] [address] 02/09/2021 00:00:00 02/09/2021 14:28:58 [id number] Zuleika slater MD [facility] [address] [place] [address] [place] [address] 01/31/2023 10:24:09 01/31/2023 11:38:25 Screening - NAD 262816388 Z13.9 C-scope: Done last year, in [facility] m: 03/11/19:Scott Szymanski Early 01/05/17, C-scope: To be done again [...] her understand ing of the above Asthma 114545837 J45.90 9 On symbicort, renewed 01/31/2023 On singulairO n albuterol Does well Thrombocyt openic disorder 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 D69.6 Get labs and then will decide if she wants to see Dr Dover again Hyperlipidemia 29584964 E78.5 Get back on rosuvastat in 40mg dailyGet labs Vitamin D deficiency 347 92994 E55.9 Screening mammography 24 811126 Z12.31 Ordered 09/13/2020 , 02/09/2021 , but she does not want to do thisAdvise d on SBE and notify if any symptoms occur or change Anemia 835721483 D64.9 Does wellGet labs [id number] Zuleika slater MD [facility] [place] [place] [facility] , [place] [address] 09/05/2023 10:11:46 09/05/2023 11:10:04 Asthma 060130088 J45.909 On symbicort, renewed 01/31/2023 On singulairO n albuterol will d/cStart on airsupra Does well Hyperlipidemia 12290710 E78.5 Get back on rosuvastat in 40mg dailyGet labs Screening - NAD 00998830 3 Z13.9 C-scope: Done last year, in [facility] m: 03/11/19:D r Nessa Early 01/05/17, C-scope: To be done again in 7 years PAP: Did see Dr Robles and does well now Mammogram: Needs to get this done DEXA: 09/05/2019 : Osteopenia , does ca and vit d Get yearly flu shot 04/19/2020 [facility] 04/[facility]2020 Can do shingles vaccineGet COVID 19 vaccine doneDo RSV vaccine RTC in 4 monthsGet labsER if worseShe and her did verbalize her understand ing of the above Thrombocyt openic disorder 231497586 D69.6 Get labs and then will decide if she wants to see Dr Dover again Vitamin D deficiency 347 41092 E55.9 Screening mammography 24 871315 Z12.31 Ordered 09/13/2020 , 02/09/2021 , but she does not want to do thisAdvise d on SBE and notify if any symptoms occur or change Anemia 854266262 D64.9 Does wellGet labs Hypothyroidism 17973586 E03.9 Get labsGet US thyroid Screening for malignant neoplasm of colon 517679563 Z12.11 Screening for osteoporosis 310447419 Z13.132 [id number] Zuleika slater MD [facility] Internal Med [address] , [place] [address] 01/23/2024 10:23:14 01/23/2024 11:39:09 Asthma 450666784 J45.909 On symbicort, renewed 01/31/2023 On singulairO n albuterol will d/cStart on airsupra Does well Hyperlipidemia 37562704 E78.5 On rosuvastat in 40mg dailyGet labs Screening - NAD 84837338 3 Z13.9 C-scope: Done last year, in [facility] m: 03/11/19:D r Nessa Early 01/05/17, C-scope: To be done again in 7 years PAP: Did see Dr Robles and does well now Mammogram: Needs to get this done DEXA: 09/05/2019 : Osteopenia , does ca and vit d Get yearly flu shot 04/19/2020 Td 2009 as per [facility] TD PCV #13 04/19/2020 Can do shingles vaccineGet COVID 19 vaccine doneDo RSV vaccine RTC in 4 monthsGet labsER if worseShe and her did verbalize her understand ing of the above Thrombocyt openic disorder 554338594 D69.6 Get labs and then will decide if she wants to see Dr Dover again Vitamin D deficiency 347 01189 E55.9 Screening mammography 24 800505 Z12.31 Ordered 09/13/2020 , 02/09/2021 , but she does not want to do thisAdvise d on SBE and notify if any symptoms occur or change Anemia 667311728 D64.9 Does wellGet labs Hypothyroidism 86696627 E03.9 Get labsGet US thyroid Screening for malignant neoplasm of colon 955512598 Z12.11 Screening for osteoporosis 870468503 Z13.452 [id number] Zuleika slater MD [facility] Primary Care Jonathan liz [address] [place] [address] 05/28/2024 10:07:23 05/28/2024 11:13:16 Asthma 800344458 J45.909 On symbicort, renewed 01/31/2023 On singulairO n albuterol Does well Hyperlipidemia 56215191 E78.5 On rosuvastat in 40mg dailyGet labs Screening - NAD 65305789 3 Z13.9 C-scope: Done last year, in [facility] m: 03/11/19:D r Nessa Early 01/05/17, [...] ing of the above Thrombocyt openic disorder 888139189 D69.[address] Dover again Vitamin D deficiency 347 78901 E55.9 Screening mammography 24 367887 Z12.31 Ordered 09/13/2020 , 02/09/2021 , but she does not want to do thisAdvise d on SBE and notify if any symptoms occur or change Anemia 800393103 D64.9 Does wellGet labs Hypothyroidism 10056194 E03.9 Get labsGet US thyroid Screening for malignant neoplasm of colon 127291804 Z12.11 Screening for osteoporosis 155916351 Z13.820 Administra tion of influenza vaccine 91215369 Z23 [id number] Zuleika slater MD [facility] Primary Care [address] [place] [address] 08/21/2024 11:20:58 08/21/2024 11:50:26 [id number] Zuleika slater MD [facility] Primary Care [facility] [address] [facility] [place] [address] 08/25/2024 11:22:01 08/25/2024 12:23:44 Asthma 990453232 J45.909 On symbicort, renewed 01/31/2023 On singulairO n albuterol Does well Hyperlipidemia 17058345 E78.5 On rosuvastat in 40mg daily, has been not complaint with taking her statinGet labs Screening - NAD 01294067 3 Z13.9 C-scope: Done last year, in [facility] m: 03/11/19:D r Nessa Early 01/05/17, C-scope: To be done again in 7 yearsIs to get her C-scope 09/17/2024 , as per her history 08/25/2024 PAP: Did see Dr Robles and does well now Mammogram: Not doing this 08/25/2024 , do SBE DEXA: 09/05/2019 : Osteopenia , does ca and vit d Get yearly flu shot 04/19/2020 [facility] 04/19/2020 Can do shingles vaccineGet COVID 19 vaccine doneDo RSV vaccine RTC in 4 monthsGet labsER if worseShe and her did verbalize her understand ing of the above Thrombocyt openic disorder 755289047 D69.[address] Dover again Vitamin D deficiency 347 77668 E55.9 Screening mammography 24 592125 Z12.31 Ordered 09/13/2020 , 02/09/2021 , but she does not want to do thisAdvise d on SBE and notify if any symptoms occur or change Anemia 135574677 D64.9 Does wellGet labs Hypothyroidism 74081836 E03.9 Get labsGet US thyroid Screening for malignant neoplasm of colon [id number] Z12.11 Screening for osteoporosis [id number] Z13.156 [id number] Zuleika slater MD [facility] [place] [address] [address] [facility] [place] [address] 09/22/2024 16:21:42 09/22/2024 17:47:05 Allergic reaction [id number] T78.40XA D/t pepcid given by the Tarynw does well, mild redness seen, advised to take OTC benadryl, notify if worse, ER if worse, she is very appreciati ve to this plan of care [id number] Zuleika slater MD [facility] [place] [address] [place] [address] 01/12/2025 10:28:17 01/12/2025 11:38:17 Allergic reaction [id number] T78.40XA D/t pepcid given by the Tarynw does well, mild redness seen, advised to take OTC benadryl, notify if worse, ER if worse, she is very appreciati ve to this plan of care Asthma [id number] J45.90 9 On symbicortO n singulairO n albuterol, wants to get on airsupra Does well Hyperlipidemia [id number] E78.5 On rosuvastat in 40mg daily, has been not complaint with taking her statinGet labs Screening - NAD [id number] 3 Z13.9 C-scope: Done last year, in [place] Nessa Early 01/05/17, C-scope: To be done again in 7 yearsDr Nessa Early 09/17/2024 : No further screening PAP: Did see Dr Robles and does well now Mammogram: Not doing this 08/25/2024 , do SBE DEXA: 09/05/2019 : Osteopenia , does ca and vit d Get yearly flu shot 04/19/2020 [facility] 04/19/2020 Can do shingles vaccineGet COVID 19 vaccine doneDo RSV vaccine RTC in 4 monthsGet labsER if worseShe and her did verbalize her understand ing of the above Thrombocyt openic disorder [id number] D69.6 Dr Dover 10/02/2024 , f/u in one year Vitamin D deficiency [id number] E55.9 Screening mammography [id number] Z12.31 Ordered 09/13/2020 , 02/09/2021 , but she does not want to do thisAdvise d on SBE and notify if any symptoms occur or change Anemia [id number] D64.9 Does wellGet labs Hypothyroidism [id number] E03.9 Get labsGet US thyroid Postmenopausal state [phone] Z78.0 Health Concerns Section Related Observation LastModified by Organization Detai ls LastModified Time None Recorded Concern Status LastModified by Organization Details LastModified Time None Recorded Advance Directives Directive N: Payers Insurance Date Sequence Insurance Name Policy Number Policy Liu Covered Member ID Liu Member ID Guarantor Name 12/21/2024 1 [place] Eve Yost [id number] Eve Villaltafall 01/14/2025 2 AARP (MEDICARE SUPPLEMENT) Eve Yost [id number] Eve Yost 08/21/[address] [facility] [id number] Eve Yost [id number] Eve Yost Notes Date Note Type Note Provider Name and Address Organization Details Recorded Time 05/28/2024 text/html OV 02/26/19:Here to establish carePast PCP: Dr. Perez, last apt was 1.5 yearsPast Hx:AsthmaGERRaymond vazquez social family and surgical historyHere with [...] here with her Zuleika Denney MD [address], [place], [address], [place] [facility] 05/28/2024 18:36:10 08/25/2024 text/html OV 02/26/19:Here to [...] 's medical issues Zuleika Denney MD [address] [facility], [address], [place], [address], [place] - [facility] 08/25/2024 14:15:19 09/22/2024 text/html OV 02/26/19:Here to [...] difficulty breathing or swallowing Zuleika Denney MD [address] [place] [address], [facility] [address], [place], [address], [facility] [employer] 09/22/2024 18:40:37 01/12/2025 text/html OV 02/26/19:Here to establish carePast PCP: [...] other complaints, no difficulty breathing or swallowing OV 01/12/2025: Here for her f/u apt, she is doing very well today and is here with her Zuleika Denney MD [address] [facility], [place], [address], [place] [facility] [facility] 01/12/2025 18:57:30 OBGyn Episode No OBEpisode recorded.
--- OUTSIDE RECORDS SUMMARY | 2025-01-23 12:47 | XMS_ITS | Clinical Summary ---
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 Name Role Phone Unavailable Primary Care Provider Unavailabl e Social History Tobacco Use Types Packs/Day Years Used Date Smoking Tobacco: Never Assessed Comments Unknown Sex and Gender Information Value Date Recorded Sex Assigned at Not on file Legal Sex Female 8:25 PM CDT Gender Identity Not on file Sexual Orientation Not on file Plan of Treatment Health Maintenance Due Date Last Done Comments Hepatitis C 1966 DTaP, Tdap and Td Vaccines ( 1 - Tdap) 12/13/1967 Pneumococcal Vaccine: 50+ Ye ars (1 of 1 - PCV) 1998 Zoster Vaccines (1 of 2) 1998 Dexa Scan (General) 2013 RSV Immunization or 60+ Years (1 - 1-dose 75+ series) 12/13/2023 COVID-19 Vaccine ( - 2023-2 5 season) 2024 Meningococcal B Vaccine Aged Out No l onger eligible based on patient's age to complete this topic Meningococcal Vaccine Aged Out No tamar aidee eligible based on patient's age to complete this topic RSV Immunizations Under 20 Months Aged Out No longer eligible based on patient's age to complete this topic
--- OUTSIDE RECORDS SUMMARY | 2025-01-23 12:47 | XMS_ITS | Clinical Summary ---
Author Organization [facility] Address [address] [facility] [place] [address] Care Team Providers Care Financial Solutions Advisor Name Role Phone Unavailable Primary Care Provider Unavailabl e Source Comments [facility],non-owned Affiliates and Associated Physician Practices is amultiple site organization consisting of ambulatory clinics and hospital sitesin [place], [place], [place] and [place]. This disclosure is being madepursuant to the Care Everywhere program and may not contain all information available regarding this patient. Last updated 18.[facility] [employer] Allergies No known active allergies Medications * Be aware that medications may not be up to date on this document. Alwaysverify current medications with the patient. 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 Gender Identity Not on file Sexual Orientation Not on file Last Filed Vital Signs Vital Sign Reading Time Taken Comments Blood Pressure 122/68 06/05/2020 11:47 AM FASHION MERCHANDISER Pulse 78 06/05/2020 11:47 AM FASHION MERCHANDISER Temperature 36.8 C (98.3 F) 06/05/2020 11:47 AM FASHION MERCHANDISER Respiratory Rate 16 06/05/2020 11:47 AM FASHION MERCHANDISER Oxygen Saturation 95% 06/05/2020 11:47 AM FASHION MERCHANDISER Inhaled Oxygen Concentration - - Weight 59 kg (130 lb) 06/05/2020 11:47 AM FASHION MERCHANDISER Height 157.5 cm (5' 2) 06/05/2020 11:47 AM FASHION MERCHANDISER Body Mass Index 23.78 06/05/2020 11:47 AM FASHION MERCHANDISER Plan of Treatment Health Maintenance Due Date Last Done Comments BONE DENSITY TESTING 1950 HEPATITIS C SCREENING 12/08/1966 DTAP/TDAP/TD VACCINES (1 - Tdap) 12/13/1967 PNEUMOCOCCAL VACCINE 50+ (1 of 1 - PCV) 1998 ZOSTER VACCINE (1 of 2) 1998 Respiratory Syncytial Virus (RSV) Vaccine Pt: or over 60 yrs (1 - 1-dose 75+ series) 12/13/2023 COVID-19 VACCINE (1 - 2023-2 5 season) 2024 DEPRESSION SCREENING 07/16/2024 INFLUENZA VACCINE (#1) 2025 04/15/2018 HEPATITIS B VACCINE Aged Out No longe r eligible based on patient's age to complete this topic HIB VACCINE Aged Out No longer eligi ble based on patient's age to complete this topic HPV VACCINE Aged Out No longer eligi ble based on patient's age to complete this topic MENINGOCOCCAL (Group B) VACC INE SHARED DECISION-MAKING Aged Out No longer eligibl e based on patient's age to complete this topic MENINGOCOCCAL GROUPS A/C/Y/W VACCINE Aged Out No longer eligible b ased on patient's age to complete this topic Insurance [facility]
== END 2025-01-23 12:44 | disposition home or self-care (01) ==
LOC: CHSIMG 12:45
PROVIDERS: PCP Internal Medicine; Visit Provider Internal Medicine
DX: E03.9 Hypothyroidism, unspecified (principal); E04.2 Nontoxic multinodular goiter
CPT/HCPCS: 76536

== ENCOUNTER 2025-04-19 14:34 | Emergency (ER) | payer MEDICARE, SELFPAY ==
--- OUTSIDE RECORDS SUMMARY | 2025-04-19 14:39 | XMS_ITS | Clinical Summary ---
Author Organization [facility] Address [address] [facility] [place] [address] Care Team Providers Care Drywall Hanger Framer Name Role Phone Unavailable Primary Care Provider Unavailabl e Source Comments [facility],non-owned Affiliates and Associated Physician Practices is amultiple site organization consisting of ambulatory clinics and hospital sitesin [place], [place], [place] and [place]. This disclosure is being madepursuant to the Care Everywhere program and may not contain all information available regarding this patient. Last updated 18.[facility] [employer] Allergies No known active allergies Medications * [...] on file Legal Sex Female 8:37 AM WELLHEAD PUMPER Gender Identity Not on file Sexual Orientation Not on file Last Filed Vital Signs Vital Sign Reading Time Taken Comments Blood Pressure 122/68 06/05/2020 11:47 AM WELLHEAD PUMPER Pulse 78 06/05/2020 11:47 AM WELLHEAD PUMPER Temperature 36.8 C (98.3 F) 06/05/2020 11:47 AM WELLHEAD PUMPER Respiratory Rate 16 06/05/2020 11:47 AM WELLHEAD PUMPER Oxygen Saturation 95% 06/05/2020 11:47 AM WELLHEAD PUMPER Inhaled Oxygen Concentration - - Weight 59 kg (130 lb) 06/05/2020 11:47 AM WELLHEAD PUMPER Height 157.5 cm (5' 2) 06/05/2020 11:47 AM WELLHEAD PUMPER Body Mass Index 23.78 06/05/2020 11:47 AM WELLHEAD PUMPER Plan of Treatment Health Maintenance Due Date Last Done Comments BONE DENSITY TESTING 1950 HEPATITIS C SCREENING 12/08/1966 DTAP/TDAP/TD VACCINES (1 - Tdap) 12/13/1967 PNEUMOCOCCAL VACCINE 50+ (1 of 1 - PCV) 1998 ZOSTER VACCINE (1 of 2) 1998 Respiratory Syncytial Virus (RSV) Vaccine Pt: or over 60 yrs (1 - 1-dose 75+ series) 12/13/2023 DEPRESSION SCREENING 07/16/2024 COVID-19 VACCINE (1 - 2023-2 5 season) 2025 INFLUENZA VACCINE (#1) 2025 04/15/2018 HEPATITIS B [...] patient's age to complete this topic Insurance [facility]
--- OUTSIDE RECORDS SUMMARY | 2025-04-19 14:39 | XMS_ITS | Encounter Summary ---
Author Organization [facility] Address 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 Gender Identity Not on file Sexual Orientation Not on file documented as of this encounter Plan of Treatment Upcoming Encounters Date Type Department Care Team (Late st Contact Info) Description 10/06/2025 10:15 AM CDT Office Visit [facility] Oncology and Hematology - [place] [address] [facility] [address] [place] [address] [place] [address] [place] [address] [address] [place] [address] documented as of this encounter Visit Diagnoses Diagnosis Abnormal mammogram, unspecified- Primary documented in this encounter Care Teams Electric Range Servicer Relationship Specialty Start Date End Date Zuleika Denney MD PCP - General Internal Medicine 09/01/19 documented as of this encounter
--- OUTSIDE RECORDS SUMMARY | 2025-04-19 14:39 | XMS_ITS | Clinical Summary ---
Author Organization [facility] Tanja Reyesliuns Address [address] [place] [address] Care Team Providers Care Multimedia Producer Name Role Phone Zuleika Denney MD Primary [...] Encounters Date Type Department Care Team Description 04/07/2025 External Device Data ST[facility] ABSTRACTION Provider, Abstract 03/31/2025 External Device Data [facility] ABSTRACTION Provider, Abstract 03/24/2025 External Device Data [facility] ABSTRACTION Provider, Abstract 01/28/2025 External Device Data [facility] ABSTRACTION Provider, Abstract 01/27/2025 External Device Data [facility] ABSTRACTION Provider, Abstract [...] on file Legal Sex Female 5:16 AM RAILROAD FIRER Gender Identity Not on file Sexual Orientation [...] 157.5 cm (5' 2) 09/08/2024 1:24 PM RAILROAD FIRER Body Mass Index 26.41 09/08/2024 1:24 PM RAILROAD FIRER Plan of Treatment Upcoming Encounters Date Type Department Care Team (Late st Contact Info) Description 10/06/2025 10:15 AM CDT Office Visit [facility] Oncology and Hematology - [place] [address] [facility] [address] [place] [address] Miki Dover MD [address] [facility] [address] [place] [address] Health Maintenance Due Date Last Done Comments DTAP/TDAP/TD VACCINES (1 - Tdap) 12/13/1967 ZOSTER VACCINE (1 of 2) 1998 PNEUMOCOCCAL VACCINE 50+ YEARS (2 of 2 - PCV) 09/22/19 11 09/21/2009 RSV VACCINE (60+ or ) (1 - 1-dose 75+ series) 12/13/2023 OSTEOPOROSIS SCREENING 09/05/2024 09/05/2019 INFLUENZA VACCINE (#1) 2025 04/15/2018 COLORECTAL SCREENING Discontinued 09/17/2024 Colorectal Cancer Screening Discontinued FIT-DNA Q 3 years Discontinued FIT/FOBT Q 1 year Discontinued Flex Sig/CT Colonography Q 5 years Discontinued Insurance MEDICARE PART A AND B Care Teams Multimedia Producer Relationship Specialty Start Date End Date Zuleika Denney MD PCP - General Internal Medicine 09/01/19
--- OUTSIDE RECORDS SUMMARY | 2025-04-19 14:39 | XMS_ITS | Clinical Summary ---
Author Organization [facility] Address [address] [place] [address] Care Team Providers Care Shirt Finisher Name Role Phone Unavailable Primary Care Provider [...] COVID-19 Vaccine ( - 2023-2 5 season) 2025 Meningococcal B Vaccine Aged Out No l onger eligible based on patient's age to complete this topic Meningococcal Vaccine Aged Out No tamar aidee eligible based on patient's age to complete this topic RSV Immunizations Under 20 Months Aged Out No longer eligible based on patient's age to complete this topic
[2025-04-19 14:41] VITALS: BP 137/69; PULSE 73; RESP 16; TEMP 36.8; O2SAT 96
--- NOTE | 2025-04-19 14:54 | ED_ITS ---
HPI - Skin/Abscess/Foreign Bdy General Chief complaint: Skin/Abscess/Foreign Body Stated complaint: LT Arm Insect Bite Time Seen by Provider: 04/19/25 14:45 Source: patient Mode of arrival: ambulatory Limitations: no limitations History of Present Illness HPI narrative: Patient is a 74-year-old female who presents with bug bite with surrounding redness on left forearm that started 3 days ago. Patient states she put cortisone cream on it 1st and then antibiotic ointment which seemed to help. Then states when she woke up this morning the redness has grown. Denies any red streaking up the arm, fever, chills, nausea, vomiting, diarrhea. Related Data Home Medications ?Medication ?Instructions ?Recorded ?Confirmed ?Last Taken ?Type albuterol sulfate 90 mcg/actuation 2 puff inhalation Q ID PRN 10/19/22 10/19/22 Unknown History aerosol inhaler Shortness Of Breath budesonide-formoterol HFA 160 inhalation 04/19/25 Unk nown History mcg-4.5 mcg/actuation aerosol inhaler (Symbicort) rosuvastatin 40 mg tablet mg 04/19/25 Unknown History Allergies Allergy/AdvReac Type Severity Reaction Status Date / Time titanium Allergy Unknown Verified 04/19/25 15:11 prochlorperazine (From AdvReac Intermediate Muscle Verified 04/19/25 15:11 Compazine) Spasms All Acid Reflux Medications Allergy Severe Swelling Uncoded 04/19/25 15:11 of Lip/Tongue/Throat Review of Systems 2 Review of Systems: All systems reviewed & are unremarkable except as noted in HPI and below Constitutional: Constitutional: Denies body ache(s), Denies chills, Denies fatigue, Denies fever(s), Denies headache(s), Denies malaise and Denies weakness Eyes: Eyes: Denies blurry vision, Denies irritation and Denies loss of vision ENT: Denies otalgia, Denies headache(s), Denies nasal discharge, Denies sinus pain and Denies sore throat Cardiovascular: Cardiovascular: Denies chest pain, Denies irregular heart rhythm and Denies dyspnea Respiratory: Respiratory: Denies dyspnea Gastrointestinal: Gastrointestinal: Denies abdominal pain, Denies melena, Denies hematochezia, Denies diarrhea, Denies nausea and Denies vomiting Musculoskeletal: Musculoskeletal: Denies back pain, Denies myalgias and Denies arthralgias Integumentary/Breasts: Skin/Breast: Denies pruritus, Reports erythema, Denies rash and Reports wounds Neurologic: Denies headache(s), Denies loss of vision and Denies weakness Psychiatric: Psychiatric: Reports no additional psychiatric complaints Endocrine: Endocrine: Denies fatigue PMFSH Comments At time of signature, agree with nursing past medical, surgical, social and family history. There is no relevant family history pertinent to the presenting complaint. Exam 2 Const: General: cooperative, healthy appearing, comfortable, no acute distress and well nourished Nutritional Appearance: well nourished O rientation/consciousness: patient oriented x3 Limitations: no limitations HENMT: Head: normal to inspection, normocephalic and atraumatic Ears: h earing grossly normal bilaterally and external ears normal Face/Nose/Sinus: N ormal external nose present, normal facial exam and face symmetric Face and sinus: normal facial exam and face symmetric Mouth: Yes lip normal Eyes: General: appearance normal, both eyes and all related structures A lignment and Position: alignment normal and position normal Periorbital: p eriorbital findings normal Eyelids: eyelids normal Pupils: Equal, round and reactive pupils present EOM: EOMs intact bilaterally Neck: Neck: normal visual inspection, full ROM and supple Chest: Chest palpation & inspection: normal inspection of the chest Resp: Effort & Inspection: normal respiratory effort and able to speak in complete sentences Auscultation: clear to auscultation bilaterally Cardio: Rate: regular rate Rhythm: regular rhythm Heart sounds: S1 normal heart sound present and S2 normal heart sound present GI: Inspection: normal to inspection Skin: General skin exam: normal color and no rashes or lesions noted Full body images: 1. 10 cm x 6 cm area of erythema with center 1 cm x 0.5 cm scabbed. Areas warm to touch but not painful. No induration or fluctuation Neuro: General: patient oriented x3 and moves all extremities Cranial nerves: Yes Equal, round and reactive pupils present Speech: normal speech Gait exam (Neuro): Normal gait present Extrem: General: normal to inspection, full ROM and no edema Psych: Appearance: grossly normal and well kempt Mental Status: mental status grossly normal Speech and movement: Normal speech and movement present Affect: normal affect Attitude: cooperative Thought process: Normal thought process present Course Course Emergency Course: Patient is aware of diagnosis, understands and agrees to treatment plan. Anticipatory guidance given. Patient agrees to follow-up as directed and is aware of reasons to seek care at the emergency department. Portions of this record may have been created with voice recognition software Level of Care: Express Care Visit Vital Signs Vital signs: Vital Signs Temperature 36.8 C 04/19/25 14:41 Pulse Rate 73 04/19/25 14:41 Respiratory Rate 16 04/19/25 14:41 Blood Pressure 137/69 04/19/25 14:41 Pulse Oximetry 96 04/19/25 14:41 Oxygen Delivery Room Air 04/19/25 14:41 Temperature 36.8 C 04/19/25 14:41 Pulse Rate 73 04/19/25 14:41 Respiratory Rate 16 04/19/25 14:41 Blood Pressure 137/69 04/19/25 14:41 Pulse Oximetry 96 04/19/25 14:41 Oxygen Delivery Room Air 04/19/25 14:41 Reviewed MDM - Skin/Abscess/Foreign Bdy MDM Narrative Medical decision making narrative: Pt well hydrated appearing, in no respiratory distress, hemodynamically stable. Recommend supportive care. The patient is stable at time of discharge the clinical impression was discussed and the patient was given the opportunity to ask questions, which were addressed as completely as possible given the information available at present. Anticipatory guidance and return to care precautions were discussed and the importance of primary care follow-up was stressed and encouraged. The patient voiced understanding of the plan, indications to return, and the need for follow-up. Exam findings show no acute concerns or changes Patient is appropriate for outpatient treatment and follow-up. Differential Diagnosis Differential diagnosis: Likely allergic reaction to drug, cellulitis, insect bites and contact dermatitis Medical Records Attestation: I reviewed the patient's medical records. Discharge Plan Discharge Clinical Impression: Cellulitis, Insect bites Patient Disposition: Home Condition: Stable Instructions: Cellulitis (ED) Additional Instructions: Please follow up with your Primary Care Doctor within 48-72 hours - call for an appointment. Rest and elevate affected area; apply moist heat 3-4 times daily for 10-15 minutes. Clean with soap and water only; Avoid using alcohol and peroxide. Elevate the affected area if possible Please take Antibiotics as directed. For pain, you may take: Tylenol 650-1000mg by mouth every 4-6 hours. Do not exceed 4000mg in 24 hours. Advil (Ibuprofen) 600 mg by mouth every 6 hours. Do not exceed 2400mg in 24 hours. 8 AM: Tylenol 11 AM: Ibuprofen 2 PM: Tylenol 5 PM: Ibuprofen 8 PM: Tylenol 11 PM: Ibuprofen 2 AM: Tylenol 5 AM: Ibuprofen If you experience any worsening redness, swelling, streaking (red lines), fever or chills please go to the ER Patient Language: Yi Prescriptions: New mupirocin 2 % ointment 1 applic topical BID Qty: 15 0RF cephalexin 500 mg capsule 500 mg PO QID 7 Days Qty: 28 0RF No Action albuterol sulfate 90 mcg/actuation Hfa Aerosol Inhaler 2 puff INHALATION QID PRN (Reason: Shortness Of Breath) (DME) Aerochamber MV Spacer See Rx Instructions .Route Qty: 1 0RF Rx Instructions: As directed albuterol sulfate 90 mcg/actuation HFA aerosol inhaler 2 puff inhalation QID PRN (Reason: shortness of breath or wheezing) Qty: 6.7 0RF rosuvastatin 40 mg tablet budesonide-formoterol [Symbicort] 160-4.5 mcg/actuation HFA aerosol inhaler INHALATION Follow-up/Referrals: Jumana,MD Zuleika [Primary Care Provider, Unknown] - 3 Days Time of Disposition: 15:12
== END 2025-04-19 15:14 | disposition home or self-care (01) ==
PROVIDERS: Emergency Provider Nurse Practitioner Family; PCP Internal Medicine
DX: L03.114 Cellulitis of left upper limb (principal); S50.862A Insect bite (nonvenomous) of left forearm, initial encounter; W57.XXXA Bitten or stung by nonvenomous insect and other nonvenomous arthropods, initial encounter; E78.00 Pure hypercholesterolemia, unspecified; J45.909 Unspecified asthma, uncomplicated; K21.9 Gastro-esophageal reflux disease without esophagitis; M19.90 Unspecified osteoarthritis, unspecified site
CPT/HCPCS: 99213; G0463

== ENCOUNTER 2025-04-21 10:14 | Emergency (ER) | payer MEDICARE, SELFPAY ==
[2025-04-21 10:21] VITALS: BP 131/74; PULSE 97; RESP 16; TEMP 36.4; O2SAT 98
--- NOTE | 2025-04-21 10:36 | PC.NURSE ---
the area around the pts bite has continued to grow since last night. skin marker was used to outline the red area at 1035.
--- NOTE | 2025-04-21 10:58 | ED.SKABFB ---
HPI - Skin/Abscess/Foreign Bdy General Chief complaint: Skin/Abscess/Foreign Body Stated complaint: bug bite with swelling/redness Time Seen by Provider: 04/21/25 10:25 Source: patient Mode of arrival: ambulatory Limitations: no limitations History of Present Illness HPI narrative: Patient is a 74-year-old female who presents the ED with report of a but bite to her left forearm. Patient reports she was bit by something on Sunday on her left volar forearm. Believes it was a wasp or a spider. She originally developed a large firm lump around the bite. She went to an urgent care on Sunday night and was prescribed Keflex and mupirocin ointment. Has had 1 full course of Keflex yesterday. States today she noticed the erythema has spread throughout her volar forearm. Denies streaking redness. Denies fevers. Denies history of diabetes. Related Data Home Medications ?Medication ?Instructions ?Recorded ?Confirmed ?Last Taken ?Type albuterol sulfate 90 mcg/actuation 2 puff inhalation QID PRN 10/19/22 04/21/25 04/21/25 History aerosol inhaler Shortness Of Breath budesonide-formoterol HFA 160 1 inh inhalation Q12H 04/19/25 04/21/25 04/21/25 History mcg-4.5 mcg/actuation aerosol inhaler (Symbicort) rosuvastatin 40 mg tablet 40 mg PO 04/19/25 04/21/25 History Allergies Allergy/AdvReac Type Severity Reaction Status Date / Time titanium Allergy Unknown Verified 04/21/25 10:29 prochlorperazine (From AdvReac Intermediate Muscle Verified 04/21/25 10:29 Compazine) Spasms All Acid Reflux Medications Allergy Severe Swelling Uncoded 04/19/25 15:11 of Lip/Tongue/Throat Review of Systems Review of Systems: All systems reviewed & are unremarkable except as noted in HPI. All systems reviewed & are unremarkable except as noted in HPI and below Exam Narrative: GENERAL: Well appearing, well-nourished, non-toxic, in no acute distress. HEAD: Normocephalic, atraumatic. RESPIRATORY: Airway patent, respirations nonlabored. CARDIOVASCULAR: Regular rate and rhythm. Radial pulses strong and easily palpable MUSCULOSKELETAL: Moves all extremities. No gross deformities. Deep purple papular lesion to proximal volar forearm with surrounding erythema to around mid forearm. Minimal warmth. No fluctuance. No significant induration. Mild focal tenderness to palpation. No lymphangitic streaking. SKIN: Warm, dry, normal color. NEURO: A&O X3. Speech clear. No ataxic movements. PSYCHIATRIC: Appropriate mood and affect. Normal interaction. Course Vital Signs Vital signs: Vital Signs Temperature 97.5 F L 04/21/25 10:21 Pulse Rate 97 04/21/25 10:21 Respiratory Rate 16 04/21/25 10:21 Blood Pressure 131/74 04/21/25 10:21 Pulse Oximetry 98 04/21/25 10:21 Oxygen Delivery Room Air 04/21/25 10:21 Temperature 97.5 F L 04/21/25 10:21 Pulse Rate 97 04/21/25 10:21 Respiratory Rate 16 04/21/25 10:21 Blood Pressure 131/74 04/21/25 10:21 Pulse Oximetry 98 04/21/25 10:21 Oxygen Delivery Room Air 04/21/25 10:21 MDM - Skin/Abscess/Foreign Bdy MDM Narrative Medical decision making narrative: Patient presented to ED with concern for infected spider or insect bite to left volar forearm. Has been on Keflex for 1 day. Do not feel this is enough time to declare antibiotic failure. VSS upon arrival. Patient appears well. No concern for systemic infection/sepsis to suggest need for further labs or imaging at this time. Will add on doxycycline. Erythematous area was marked with skin marker. Recommended that patient follow-up with PCP for further evaluation. Advised if redness continues to worsen past 48 hours, to return to the ED for possible IV antibiotics. Otherwise feel patient is safe for discharge home at this time. Discharged in stable condition. Medical Records Attestation: I reviewed the patient's medical records. Discharge Plan Discharge Clinical Impression: Insect bite of left arm Qualifiers: Encounter type: initial encounter Qualified Code(s): S40.862A - Insect bite (nonvenomous) of left upper arm, initial encounter Cellulitis Qualifiers: Site of cellulitis: extremity Site of cellulitis of extremity: upper extremity Laterality: left Qualified Code(s): L03.114 - Cellulitis of left upper limb Patient Disposition: Home Condition: Stable Instructions: Antibiotic Form, Cellulitis (ED), Insect Bite or Sting (ED) Additional Instructions: Take both antibiotics as prescribed. You may use ice/cool compresses to arm. Follow up with your primary care doctor. Return to the ED if you experience worsening or severe redness/swelling, streaking redness up/down arm, fevers, unable to keep down food or drink, or any other symptoms of concern. Patient Language: Swedish Prescriptions: New doxycycline monohydrate 25 mg/5 mL suspension for reconstitution 100 mg PO BID 7 Days Qty: 280 0RF No Action albuterol sulfate 90 mcg/actuation Hfa Aerosol Inhaler 2 puff INHALATION QID PRN (Reason: Shortness Of Breath) (DME) Aerochamber MV Spacer See Rx Instructions .Route Qty: 1 0RF Rx Instructions: As directed albuterol sulfate 90 mcg/actuation HFA aerosol inhaler 2 puff inhalation QID PRN (Reason: shortness of breath or wheezing) Qty: 6.7 0RF rosuvastatin 40 mg tablet 40 mg PO budesonide-formoterol [Symbicort] 160-4.5 mcg/actuation HFA aerosol inhaler 1 inh INHALATION Q12H mupirocin 2 % ointment 1 applic topical BID Qty: 15 0RF cephalexin 500 mg capsule 500 mg PO QID 7 Days Qty: 28 0RF Follow-up/Referrals: Jumana,MD Zuleika [Primary Care Provider, Unknown] Time of Disposition: 11:22
--- OUTSIDE RECORDS SUMMARY | 2025-04-21 11:06 | XMS_ITS | Clinical Summary ---
Author Organization [facility] Address [address] [place] [id number] Care Team Providers Care Metallurgical Analyst Name Role Phone Unavailable Primary Care Provider [...]
--- OUTSIDE RECORDS SUMMARY | 2025-04-21 11:06 | XMS_ITS | Clinical Summary ---
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 [address] [place] [address] Miki Dover MD [address] [facility] [address] [place] [address] Health Maintenance Due Date Last [...] MEDICARE PART A AND B Care Teams Hand Sole Sewer Relationship Specialty Start Date End Date Zuleika Denney MD PCP - General Internal Medicine 09/01/19
--- OUTSIDE RECORDS SUMMARY | 2025-04-21 11:06 | XMS_ITS | Encounter Summary ---
Author Organization [facility] Address 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 Gender Identity Not on file Sexual Orientation Not on file documented as of this encounter Plan of Treatment Upcoming Encounters Date Type Department Care Team (Late st Contact Info) Description 10/06/2025 10:15 AM CDT Office Visit [facility] Oncology and Hematology - Kunal [address] [facility] [address] [place] [address] [place] [address] [place] [address] [address] [place] [address] documented as of this encounter Visit Diagnoses Diagnosis Abnormal mammogram, unspecified- Primary documented in this encounter Care Teams Screen Printing Equipment Setter Relationship Specialty Start Date End Date Zuleika Denney MD PCP - General Internal Medicine 09/01/19 documented as of this encounter
--- OUTSIDE RECORDS SUMMARY | 2025-04-21 11:06 | XMS_ITS | Encounter Summary ---
Author Organization [facility] Address 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 Gender Identity Not on file Sexual Orientation Not on file documented as of this encounter Plan of Treatment Upcoming Encounters Date Type Department Care Team (Late st Contact Info) Description 10/06/2025 10:15 AM CDT Office Visit [facility] Oncology and Hematology - [place]unal [address] [place] [address] [facility] [address] [place] [address] [place] [address] [place] [address] [address] [place] [address] documented as of this encounter Visit Diagnoses Diagnosis Other screening mammogram- Primary documented in this encounter Care Teams Customer Sales Service Manager Relationship Specialty Start Date End Date Zuleika Denney MD PCP - General Internal Medicine 09/01/19 documented as of this encounter
--- OUTSIDE RECORDS SUMMARY | 2025-04-21 11:06 | XMS_ITS | Clinical Summary ---
Author Organization [facility] Address [address] [place] [address] Care Team Providers Care Pasting Machine Operator Name Role Phone Unavailable Primary Care Provider Unavailabl e Source Comments [facility],non-owned Affiliates and Associated Physician Practices is amultiple site organization consisting of ambulatory clinics and hospital sitesin [place], [place], [place] and [place]. This disclosure is being madepursuant to the Care Everywhere program and may not contain all information available regarding this patient. Last updated 18.[facility] Allergies No known active allergies Medications * [...] on file Legal Sex Female 8:37 AM BAND TOP MAKER Gender Identity Not on file Sexual Orientation Not on file Last Filed Vital Signs Vital Sign Reading Time Taken Comments Blood Pressure 122/68 06/05/2020 11:47 AM BAND TOP MAKER Pulse 78 06/05/2020 11:47 AM BAND TOP MAKER Temperature 36.8 C (98.3 F) 06/05/2020 11:47 AM BAND TOP MAKER Respiratory Rate 16 06/05/2020 11:47 AM BAND TOP MAKER Oxygen Saturation 95% 06/05/2020 11:47 AM BAND TOP MAKER Inhaled Oxygen Concentration - - Weight 59 kg (130 lb) 06/05/2020 11:47 AM BAND TOP MAKER Height 157.5 cm (5' 2) 06/05/2020 11:47 AM BAND TOP MAKER Body Mass Index 23.78 06/05/2020 11:47 AM BAND TOP MAKER Plan of Treatment Health Maintenance Due Date [...] patient's age to complete this topic Insurance [facility]
--- OUTSIDE RECORDS SUMMARY | 2025-04-21 11:07 | XMS_ITS | Data Portability ---
Author Organization [place] [facility], Main Office Address [address] [place] [address] Assessment Encounter Date Assessment Date Assessment LastModified [...] Organization Details Last Modified Time Details Appointments Any 15 2024 10:15A M Zuleika alvarez MD Not available Not available Not available Lab vitamin D, 25-hydrox y, total, serum 2024 025 [facility] (Lab), [address] [place], [address], 01/13/2025 18:20:51 TSH, serum or plasma 2024 025 [facility], [address] [place], [address], 01/13/2025 18:20:51 T4, free, serum 2024 025 [facility], [address] [place], [address], 01/13/2025 18:20:51 lipid panel, serum 2024 025 [facility] (Lab), [address] [place], [address], 01/13/2025 18:20:52 CMP, serum or plasma 2024 025 [facility] (Lab), [address] [place], [address], 01/13/2025 18:20:51 CBC w/ auto diff 2024 025 [facility] (Lab), [address] [place], [address], 01/13/2025 18:20:51 TSH + free T4, serum 2024 025 [facility] (Lab), [address] [place], [address], 01/13/2025 18:20:51 lipid panel, serum 2024 025 [facility] (Lab), [address] [place], [address], 02/23/2025 10:02:27 CMP, serum or plasma 2024 025 SILVIO [facility] (Lab), [address] [place], [address], 09/09/2024 06:07:39 CBC w/ auto diff 2024 025 SILVIO [facility] (Lab), [address] [place], [address], 09/09/2024 05:10:54 TSH + free T4, serum [address] (Lab), [address] [place], [address], 02/23/2025 10:02:27 vitamin D, 25-hydrox y, total, serum [address] (Lab), [address] [place], [address], 02/23/2025 10:02:27 TSH, serum or plasma 2024 025 [email or web address] Not available 02/23/2025 10:02:28 T4, free, serum 2024 025 [email or web address] Not available 02/23/2025 10:02:28 lipid panel, serum 2023 024 SILVIO Not available 08/23/2024 09:39:02 CMP, serum or plasma 2023 024 SILVIO Not available 08/23/2024 09:39:00 CBC w/ auto diff 2023 024 SILVIO Not available 08/23/2024 09:38:59 TSH + free T4, serum 2023 024 SILVIO Not available 08/23/2024 09:38:58 vitamin D, 25-hydrox y, total, serum 2023 024 SILVIO Not available 08/23/2024 09:39:03 TSH, serum or plasma 2023 024 [email or web address] Not available 02/17/2025 08:27:19 T4, free, serum 2023 024 [email or web address] Not available 02/17/2025 08:27:19 Referral hematolog ist referral - Please call patient to schedule an appointme nt. Thank you. 2024 025 mallory Dover MD, [address], [place], [address], 09/25/2024 15:23:32 hematolog ist referral 2023 024 SILVIO Dover MD, [address], [place], [address], 09/08/2024 17:02:01 Procedures colonosco py screening (PROC) - Please call patient to schedule an appointme nt. Thank you. 2024 025 [email or web address] Nessa Hallman MD, [facility] , [place], [address], 11/24/2024 08:40:45 colonosco py screening (PROC) - Please call patient to schedule. 2023 024 [email or web address] Nessa Hallman MD, [facility] , [place], [address], 08/19/2024 09:02:41 Surgeries None recorded. Imaging US, thyroid - Please call patient to schedule. 2024 025 [email or web address] [facility] (Imaging), [address] [place] [address], [address], 02/23/2025 19:26:41 DEXA, axial skeleton - Please call patient to schedule. [address] ([facility]), [address], [place], [address], 02/23/2025 19:27:31 DEXA, axial skeleton - Please call patient to schedule. [address] [facility], [address] [facility] [address], [address], 08/25/2024 12:35:27 US, thyroid - Please call patient to schedule. [address] [facility], [address] [place], [address], 08/25/2024 12:35:53 DEXA, axial skeleton - Please call patient to schedule. [address] [facility], [address] [facility] [address], [place], [address], 09/01/2024 17:09:47 US, thyroid - Please call patient to schedule. [address] [facility], [address] [place], [address], 06/30/2024 09:39:01 Medication Orders Symbicort 160 mcg-4.5 mcg/actua tion HFA aerosol inhaler 2024 025 [id number], [address] [place], [place], [id number], 01/12/2025 10:51:04 albuterol sulfate HFA 90 mcg/actua tion aerosol inhaler 2024 025 [id number], [address], [place], [id number], 01/12/2025 10:51:04 Airsupra 90 mcg-80 mcg/actua tion HFA aerosol inhaler 2024 025 [id number], [address], [place], [id number], 01/12/2025 18:56:12 cholecalc iferol (vitamin D3) 1,250 mcg (50,000 unit) capsule 2023 024 armando acharya [facility][id number], [address], [place], [id number], 08/25/2024 12:13:58 Patient TargetsNo targets recorded. Patient InstructionsNo instructions recorded. Reason for Referral Referring Physician: Zuleika Denney, Internal Medicine, Encounter Date: 05/28/2024 [facility] Thank you. Referring Physician: Zuleika Denney Internal Medicine, Encounter Date: 08/25/2024 Results Created Date Observation Date Name Description Value Unit Range Abnormal Flag Note LastModifiedBy Organization Detail LastModifiedTime 05/26/2005/26/2024 CBC/C OMPLE TE BLD COUNT W/DIF F white blood cells 5.8 x10'3 /uL 4.2-10 .8 Not Available [facility] (Lab) [address] [place], [address], 05/26/2024 18:35:30 05/26/20 24 05/26/2024 CBC/C OMPLE TE BLD COUNT W/DIF F red blood cells 4.17 x10'6 /uL 3.80-5 .20 Not Available [facility] (Lab) [address] [place], [address], 05/26/2024 18:35:30 05/26/20 24 05/26/2024 CBC/C OMPLE TE BLD COUNT W/DIF F hemoglobin 12.4 g/dL 12.0-1 5.6 Not Available [facility] (Lab) [address] [place], [address], 05/26/2024 18:35:30 05/26/20 24 05/26/2024 CBC/C OMPLE TE BLD COUNT W/DIF F hematocrit 38.6 % 35.7-4 5.7 Not Available [facility] (Lab) [address] [place], [address], 05/26/2024 18:35:30 05/26/20 24 05/26/2024 CBC/C OMPLE TE BLD COUNT W/DIF F mean red cell volume 92.6 fL 82.0-9 9.0 Not Available [facility] (Lab) [address] [place], [address], 05/26/2024 18:35:30 05/26/20 24 05/26/2024 CBC/C OMPLE TE BLD COUNT W/DIF F mean red cell hemoglobin 29.7 pg 27.0-3 3.0 Not Available [facility] (Lab) [address] [place], [address], 05/26/2024 18:35:30 05/26/20 24 05/26/2024 CBC/C OMPLE TE BLD COUNT W/DIF F mean RBC HGB concentratio n 32.1 g/dL 31.0-3 6.0 Not Available [facility] (Lab) [address] [place], [address], 05/26/2024 18:35:30 05/26/20 24 05/26/2024 CBC/C OMPLE TE BLD COUNT W/DIF F red cell distribution width 12.6 % 11.8-1 5.5 Not Available [facility] (Lab) [address] [place], [address], 05/26/2024 18:35:30 05/26/20 24 05/26/2024 CBC/C OMPLE TE BLD COUNT W/DIF F platelets 123 x10'3 /uL 150-40 0 low Not Available [facility] (Lab) [address] [place], [address], 05/26/2024 18:35:30 05/26/20 24 05/26/2024 CBC/C OMPLE TE BLD COUNT W/DIF F mean platelet volume 11.4 fL 9.0-12 .4 Not Available [facility] (Lab) [address] [place], [address], 05/26/2024 18:35:30 05/26/20 24 05/26/2024 CBC/C OMPLE TE BLD COUNT W/DIF F neutrophils 67.3 % 39.0-7 2.0 Not Available [facility] (Lab) [address] [place], [address], 05/26/2024 18:35:30 05/26/20 24 05/26/2024 CBC/C OMPLE TE BLD COUNT W/DIF F lymphocytes 20.0 % 16.0-4 7.0 Not Available [facility] (Lab) [address] [place], [address], 05/26/2024 18:35:30 05/26/20 24 05/26/2024 CBC/C OMPLE TE BLD COUNT W/DIF F monocytes 9.0 % 5.0-12 .0 Not Available [facility] (Lab) [address] [place], [address], 05/26/2024 18:35:30 05/26/20 24 05/26/2024 CBC/C OMPLE TE BLD COUNT W/DIF F eosinophils 2.6 % 1.0-7. 0 Not Available [facility] (Lab) [address] [place], [address], 05/26/2024 18:35:30 05/26/20 24 05/26/2024 CBC/C OMPLE TE BLD COUNT W/DIF F basophils 0.9 % 0.0-2. 0 Not Available [facility] (Lab) [address] [place], [address], 05/26/2024 18:35:30 05/26/20 24 05/26/2024 CBC/C OMPLE TE BLD COUNT W/DIF F immature granulocytes 0.2 % 0.00-0 .50 Not Available [facility] (Lab) [address] [place], [address], 05/26/2024 18:35:30 05/26/20 24 05/26/2024 CBC/C OMPLE TE BLD COUNT W/DIF F neutrophils, absolute count 3.90 x10'3 /uL 1.5-8. 0 Not Available [facility] (Lab) [address] [place], [address], 05/26/2024 18:35:30 05/26/20 24 05/26/2024 CBC/C OMPLE TE BLD COUNT W/DIF F lymphocytes, absolute count 1.16 x10'3 /uL 1.07-3 .43 Not Available [facility] (Lab) [address] [place], [address], 05/26/2024 18:35:30 05/26/20 24 05/26/2024 CBC/C OMPLE TE BLD COUNT W/DIF F monocytes, absolute count 0.52 x10'3 /uL 0.29-0 .99 Not Available [facility] (Lab) [address] [place], [address], 05/26/2024 18:35:30 05/26/20 24 05/26/2024 CBC/C OMPLE TE BLD COUNT W/DIF F eosinophils, absolute count 0.15 x10'3 /uL 0.02-0 .53 Not Available [facility] (Lab) [address] [place], [address], 05/26/2024 18:35:30 05/26/20 24 05/26/2024 CBC/C OMPLE TE BLD COUNT W/DIF F basophils, absolute count 0.05 x10'3 /uL 0.01-0 .08 Not Available [facility] (Lab) [address] [place], [address], 05/26/2024 18:35:30 05/26/20 24 05/26/2024 CBC/C OMPLE TE BLD COUNT W/DIF F immature granulocytes ,absolute 0.01 x10'3 /uL 0.00-0 .05 Not Available [facility] (Lab) [address] [place], [address], 05/26/2024 18:35:30 05/26/20 24 05/26/2024 CBC/C OMPLE TE BLD COUNT W/DIF F nucleated red blood cells 0.0 % -0 Not Available [facility] (Lab) [address] [place], [address], 05/26/2024 18:35:30 05/26/20 24 05/26/2024 CBC/C OMPLE TE BLD COUNT W/DIF F NRBC# 0.00 x10'3 /uL Not Available [facility] (Lab) [address] [place], [address], 05/26/2024 18:35:30 05/26/20 24 05/26/2024 LIPID PANEL cholesterol 217 mg/dL 140-19 9 high NIH KELLY NSUS RECOM MENDA TION FOR RADHA STERO L: ADULT CHILD LOW RISK: <200 <170 BORDE RLINE : <200- 239 ----- HIGH RISK: >240 >200 Not Available [facility] (Lab) [address] [place], [address], 05/26/2024 18:53:44 05/26/20 24 05/26/2024 LIPID PANEL triglyceride s 52 mg/dL 0-150 NIH KELLY NSUS REPOR T RECOM MENDA TION FOR TRIGL YCERI GRACE: ADULT CHILD LOW RISK: <150 ----- BODER LINE: 150-1 99 ----- HIGH RISK: >200 ----- Not Available [facility] (Lab) [address] [place], [address], 05/26/2024 18:53:44 05/26/20 24 05/26/2024 LIPID PANEL HDL cholesterol 83 mg/dL 40- Not Available [facility] (Lab) [address] [place], [address], 05/26/2024 18:53:44 05/26/20 24 05/26/2024 LIPID PANEL [...] WILL NOT BE REPOR EH. Not Available [facility] (Lab) [address] [place], [address], 05/26/2024 18:53:44 05/26/20 24 05/26/2024 COMPR EHENS SONG METAB OLIC PANEL sodium 138 mmol/ L 137-14 5 Not Available [facility] (Lab) [address] [place], [address], 05/26/2024 18:53:59 05/26/20 24 05/26/2024 COMPR EHENS SONG METAB OLIC PANEL potassium 4.2 mmol/ L 3.5-5. 1 Not Available [facility] (Lab) [address] [place], [address], 05/26/2024 18:53:59 05/26/20 24 05/26/2024 COMPR EHENS SONG METAB OLIC PANEL chloride 106 mmol/ L 98-107 Not Available [facility] (Lab) [address] [place], [address], 05/26/2024 18:53:59 05/26/20 24 05/26/2024 COMPR EHENS SONG METAB OLIC PANEL carbon dioxide 28 mmol/ L 22-30 Not Available [facility] (Lab) [address] [place], [address], 05/26/2024 18:53:59 05/26/20 24 05/26/2024 COMPR EHENS SONG METAB OLIC PANEL anion gap 8.2 mmol/ L 14-22 low Not Available [facility] (Lab) [address] [place], [address], 05/26/2024 18:53:59 05/26/20 24 05/26/2024 COMPR EHENS SONG METAB OLIC PANEL glucose 90 mg/dL 70-99 Not Available [facility] (Lab) [address] [place], [address], 05/26/2024 18:53:59 05/26/20 24 05/26/2024 COMPR EHENS SONG METAB OLIC PANEL BUN 13 mg/dL 8-19 Not Available [facility] (Lab) [address] [place], [address], 05/26/2024 18:53:59 05/26/20 24 05/26/2024 COMPR EHENS SONG METAB OLIC PANEL creatinine 0.78 mg/dL 0.66-1 .25 Not Available [facility] (Lab) [address] [place], [address], 05/26/2024 18:53:59 05/26/20 24 05/26/2024 COMPR EHENS SONG METAB OLIC PANEL GFR >60 Refer ence Range : Van ge GFR Healt hy Adult : >60 mL/mi n/1.7 3 m2 Chron ic Kidne y Disea se: 15-60 mL/mi n/1.7 3 m2 Kidne y Failu re: <15/m L/min /1.73 m2 www.n iddk. nih.g ov The MDRD study equat ion has not been valid ated in child ikngs <18 years of age; pregn ant women ; the elder ly >85 years of age; or in some racia l or ethni c subgr oups, such as Hismilo nics. Outsi de the valid ated giancarlo [...] calcu lator is avail able on the [facility] websi te: https ://shabbir wilhelm.rebecca gallagher.o rg/pr ofess ional s/kdo qi/gf r_cal culat or Not Available [facility] (Lab) [address] [place], [address], 05/26/2024 18:53:59 05/26/20 24 05/26/2024 COMPR EHENS SONG METAB OLIC PANEL alkaline phosphatase 88 U/L 38-126 Not Available [facility] (Lab) [address] [place], [address], 05/26/2024 18:53:59 05/26/20 24 05/26/2024 COMPR EHENS SONG METAB OLIC PANEL alanine aminotransfe rase 25 U/L 0-35 Not Available [facility] (Lab) [address] [place], [address], 05/26/2024 18:53:59 05/26/20 24 05/26/2024 COMPR EHENS SONG METAB OLIC PANEL aspartate aminotransfe rase 33 U/L 15-37 Not Available [facility] (Lab) [address] [place], [address], 05/26/2024 18:53:59 05/26/20 24 05/26/2024 COMPR EHENS SONG METAB OLIC PANEL bilirubin, total 0.70 mg/dL 0.20-1 .30 Not Available [facility] (Lab) [address] [place], [address], 05/26/2024 18:53:59 05/26/20 24 05/26/2024 COMPR EHENS SONG METAB OLIC PANEL calcium 9.3 mg/dL 8.4-10 .2 Not Available [facility] (Lab) [address] [place], [address], 05/26/2024 18:53:59 05/26/20 24 05/26/2024 COMPR EHENS SONG METAB OLIC PANEL total protein 7.4 g/dL 6.3-8. 2 Not Available [facility] (Lab) [address] [place], [address], 05/26/2024 18:53:59 05/26/20 24 05/26/2024 COMPR EHENS SONG METAB OLIC PANEL albumin 4.3 g/dL 3.0-4. 4 Not Available [facility] (Lab) [address] [place], [address], 05/26/2024 18:53:59 05/26/20 24 05/26/2024 COMPR EHENS SONG METAB OLIC PANEL globulin 3.1 g/dL 2.6-4. 2 Not Available [facility] (Lab) [address] [place], [address], 05/26/2024 18:53:59 05/26/20 24 05/26/2024 COMPR EHENS SONG METAB OLIC PANEL A/G ratio 1.4 ratio 1.0-2. 0 Not Available [facility] (Lab) [address] [place], [address], 05/26/2024 18:53:59 05/26/20 24 05/26/2024 T4 FREE free T4 0.96 NG/dL 0.78-2 .19 Not Available [facility] (Lab) [address] [place], [address], 05/26/2024 19:13:28 05/26/20 24 05/26/2024 VITAM IN D 25-HY DROXY [id number] 26.0 NG/mL 30-100 low Vitam in D Statu s: Defic ient: <20 ng/mL Insuf ficie nt: 20-29 ng/mL Suffi cient : 30-10 0 ng/mL Not Available [facility] (Lab) [address] [place], [address], 05/26/2024 19:13:34 05/26/20 24 05/26/2024 TSH thyroid-stim ulating hormone 3.840 uIU/m L 0.465- 4.680 Not Available [facility] (Lab) [address] [place], [address], 05/26/2024 19:24:21 08/21/19 25 08/23/2024 TSH+F REE T4 TSH 6.840 uIU/m L 0.450- 4.500 above high normal Not Available [facility] ([facility]) [address] [place], [address], 08/23/2024 09:38:58 08/21/19 25 08/23/2024 TSH+F REE T4 T4,free(dire ct) 1.12 NG/dL 0.82-1 .77 normal Not Available [facility] ([facility]) [address] [place], [address], 08/23/2024 09:38:58 08/21/19 25 08/23/2024 CBC WITH DIFFE RENTI AL/PL ATELE T WBC 4.9 x10e3 /uL 3.4-10 .8 normal Not Available [facility] ([facility]) [address] [facility], [place], [address], 08/23/2024 09:38:59 08/21/19 25 08/23/2024 CBC WITH DIFFE RENTI AL/PL ATELE T RBC 4.24 x10e6 /uL 3.77-5 .28 normal Not Available [facility] ([facility]) [address] [facility], [place], [address], 08/23/2024 09:38:59 08/21/19 25 08/23/2024 CBC WITH DIFFE RENTI AL/PL ATELE T hemoglobin 12.3 g/dL 11.1-1 5.9 normal Not Available [facility] ([facility]) [address] [facility], [place], [address], 08/23/2024 09:38:59 08/21/19 25 08/23/2024 CBC WITH DIFFE RENTI AL/PL ATELE T hematocrit 38.1 % 34.0-4 6.6 normal Not Available [facility] ([facility]) [address] [place], [address], 08/23/2024 09:38:59 08/21/19 25 08/23/2024 CBC WITH DIFFE RENTI AL/PL ATELE T MCV 90 fL 79-97 normal Not Available [facility] ([facility]) [address] [place], [address], 08/23/2024 09:38:59 08/21/19 25 08/23/2024 CBC WITH DIFFE RENTI AL/PL ATELE T MCH 29.0 pg 26.6-3 3.0 normal Not Available [facility] ([facility]) [address] [place], [address], 08/23/2024 09:38:59 08/21/19 25 08/23/2024 CBC WITH DIFFE RENTI AL/PL ATELE T MCHC 32.3 g/dL 31.5-3 5.7 normal Not Available [facility] ([facility]) [address] [facility], [place], [address], 08/23/2024 09:38:59 08/21/19 25 08/23/2024 CBC WITH DIFFE RENTI AL/PL ATELE T RDW 12.2 % 11.7-1 5.4 Not Available [facility] ([facility]) [address] [facility], [place], [address], 08/23/2024 09:38:59 08/21/19 25 08/23/2024 CBC WITH DIFFE RENTI AL/PL ATELE T platelets TNP x10e3 /uL Unabl e to perfo rm an accur ate plate let count due to aggre gatio n of the plate lets. Not Available [facility] ([facility]) [address] [facility], [place], [address], 08/23/2024 09:38:59 08/21/19 25 08/23/2024 CBC WITH DIFFE RENTI AL/PL ATELE T neutrophils 60 % not estab. normal Not Available [facility] ([facility]) [address] [place], [address], 08/23/2024 09:38:59 08/21/19 25 08/23/2024 CBC WITH DIFFE RENTI AL/PL ATELE T lymphs 26 % not estab. normal Not Available [facility] ([facility]) [address] [facility], [place], [address], 08/23/2024 09:38:59 08/21/19 25 08/23/2024 CBC WITH DIFFE RENTI AL/PL ATELE T monocytes 10 % not estab. normal Not Available [facility] ([facility]) [address] [facility], [place], [address], 08/23/2024 09:38:59 08/21/19 25 08/23/2024 CBC WITH DIFFE RENTI AL/PL ATELE T eos 3 % not estab. normal Not Available [facility] ([facility]) [address] [place], [address], 08/23/2024 09:38:59 08/21/19 25 08/23/2024 CBC WITH DIFFE RENTI AL/PL ATELE T basos 1 % not estab. normal Not Available [facility] (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) [address] [facility], [place], [address], 08/23/2024 09:38:59 08/21/19 25 08/23/2024 CBC WITH DIFFE RENTI AL/PL ATELE T neutrophils (absolute) 3.0 x10e3 /uL 1.4-7. 0 normal Not Available [facility] ([facility]) [address] [place], [address], 08/23/2024 09:38:59 08/21/19 25 08/23/2024 CBC WITH DIFFE RENTI AL/PL ATELE T lymphs (absolute) 1.3 x10e3 /uL 0.7-3. 1 normal Not Available [facility] ([facility]) [address] [place], [address], 08/23/2024 09:38:59 08/21/19 25 08/23/2024 CBC WITH DIFFE RENTI AL/PL ATELE T monocytes(ab solute) 0.5 x10e3 /uL 0.1-0. 9 normal Not Available [facility] ([facility]) [address] [place], [address], 08/23/2024 09:38:59 08/21/19 25 08/23/2024 CBC WITH DIFFE RENTI AL/PL ATELE T eos (absolute) 0.1 x10e3 /uL 0.0-0. 4 normal Not Available [facility] ([facility]) [address] [facility], [place], [address], 08/23/2024 09:38:59 08/21/19 25 08/23/2024 CBC WITH DIFFE RENTI AL/PL ATELE T baso (absolute) 0.0 x10e3 /uL 0.0-0. 2 normal Not Available [facility] ([facility]) [address] [facility], [place], [address], 08/23/2024 09:38:59 08/21/19 25 08/23/2024 CBC WITH DIFFE RENTI AL/PL ATELE T immature granulocytes 0 % not estab. Not Available [facility] ([facility]) [address] [facility], [place], [address], 08/23/2024 09:38:59 08/21/19 25 08/23/2024 CBC WITH DIFFE RENTI AL/PL ATELE T immature grans (abs) 0.0 x10e3 /uL 0.0-0. 1 Not Available [facility] (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) [address] [facility], [place], [address], 08/23/2024 09:38:59 08/21/19 25 08/23/2024 CBC WITH DIFFE RENTI AL/PL ATELE T hematology comments: NOTE: Verif ied by iraj jara on Noted . Not Available [facility] ([facility]) [address] [facility], [place], [address], 08/23/2024 09:38:59 08/21/19 25 08/23/2024 COMP. METAB OLIC PANEL (14) glucose 80 mg/dL 70-99 normal Not Available [facility] ([facility]) [address] [facility] [place], [address], 08/23/2024 09:39:00 08/21/19 25 08/23/2024 COMP. METAB OLIC PANEL (14) BUN 14 mg/dL 8-27 normal Not Available [facility] ([facility]) [address] [facility] [place], [address], 08/23/2024 09:39:00 08/21/19 25 08/23/2024 COMP. METAB OLIC PANEL (14) creatinine 0.88 mg/dL 0.57-1 .00 normal Not Available [facility] ([facility]) [address] [facility] [place], [address], 08/23/2024 09:39:00 08/21/19 25 08/23/2024 COMP. METAB OLIC PANEL (14) eGFR 68 mL/mi n/1.7 3 >59 normal Not Available [facility] ([facility]) [address] [facility] [place], [address], 08/23/2024 09:39:00 08/21/19 25 08/23/2024 COMP. METAB OLIC PANEL (14) BUN/creatini ne ratio 16 12-28 normal Not Available [facility] ([facility]) [address] [place], [address], 08/23/2024 09:39:00 08/21/19 25 08/23/2024 COMP. METAB OLIC PANEL (14) sodium 137 mmol/ L 134-14 4 normal Not Available [facility] ([facility]) [address] [place], [address], 08/23/2024 09:39:00 08/21/19 25 08/23/2024 COMP. METAB OLIC PANEL (14) potassium 4.0 mmol/ L 3.5-5. 2 normal Not Available [facility] ([facility]) [address] [place], [address], 08/23/2024 09:39:00 08/21/19 25 08/23/2024 COMP. METAB OLIC PANEL (14) chloride 100 mmol/ L 96-106 normal Not Available [facility] ([facility]) [address] [place], [address], 08/23/2024 09:39:00 08/21/19 25 08/23/2024 COMP. METAB OLIC PANEL (14) carbon dioxide, total 25 mmol/ L 20-29 normal Not Available [facility] ([facility]) [address] [place], [address], 08/23/2024 09:39:00 08/21/19 25 08/23/2024 COMP. METAB OLIC PANEL (14) calcium 9.3 mg/dL 8.7-10 .3 normal Not Available [facility] ([facility]) [address] [place], [address], 08/23/2024 09:39:00 08/21/19 25 08/23/2024 COMP. METAB OLIC PANEL (14) protein, total 7.6 g/dL 6.0-8. 5 normal Not Available [facility] ([facility]) [address] [place], [address], 08/23/2024 09:39:00 08/21/19 25 08/23/2024 COMP. METAB OLIC PANEL (14) albumin 4.5 g/dL 3.8-4. 8 normal Not Available [facility] ([facility]) [address] [place], [address], 08/23/2024 09:39:00 08/21/19 25 08/23/2024 COMP. METAB OLIC PANEL (14) globulin, total 3.1 g/dL 1.5-4. 5 Not Available [facility] ([facility]) [address] [place], [address], 08/23/2024 09:39:00 08/21/19 25 08/23/2024 COMP. METAB OLIC PANEL (14) bilirubin, total 0.6 mg/dL 0.0-1. 2 normal Not Available [facility] ([facility]) [address] [facility] [place], [address], 08/23/2024 09:39:00 08/21/19 25 08/23/2024 COMP. METAB OLIC PANEL (14) alkaline phosphatase 99 IU/L 44-121 normal Not Available [facility] ([facility]) [address] [facility] [place], [address], 08/23/2024 09:39:00 08/21/19 25 08/23/2024 COMP. METAB OLIC PANEL (14) AST (SGOT) 15 IU/L 0-40 normal Not Available [facility] ([facility]) [address] [place], [address], 08/23/2024 09:39:00 08/21/19 25 08/23/2024 COMP. METAB OLIC PANEL (14) ALT (SGPT) 13 IU/L 0-32 normal Not Available [facility] ([facility]) [address] [place], [address], 08/23/2024 09:39:00 08/21/19 25 08/23/2024 LIPID PANEL cholesterol, total 215 mg/dL 100-19 9 above high normal Not Available [facility] ([facility]) [address] [place], [address], 08/23/2024 09:39:01 08/21/19 25 08/23/2024 LIPID PANEL triglyceride s 62 mg/dL 0-149 normal Not Available [facility] ([facility]) [address] [place], [address], 08/23/2024 09:39:01 08/21/19 25 08/23/2024 LIPID PANEL HDL cholesterol 65 mg/dL >39 normal Not Available [facility] ([facility]) [address] [facility], [place], [address], 08/23/2024 09:39:01 08/21/19 25 08/23/2024 LIPID PANEL VLDL cholesterol akira 11 mg/dL 5-40 Not Available [facility] ([facility]) [address] [place], [address], 08/23/2024 09:39:01 08/21/19 25 08/23/2024 LIPID PANEL LDL chol calc ([facility]) 139 mg/dL 0-99 above high normal Not Available [facility] (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) [address] [facility], [place], [address], 08/23/2024 09:39:01 08/21/19 25 08/23/2024 VITAM IN [...] Medic ine). 2009. Dieta ry refer ence jackie es for calci um and D. Gerber lowe DC: [facility] Press . 2. Maribell fernández MF, Binkl ey [place], Smita off-F errar i CORTEZ, et al. Evalu ation , treat ment, and preve ntion of vitam in D defic iency : an Endoc rine Socie ty clini akira pract ice guide line. JCEM. 2010; 96(7) :1911 -30. Not Available [facility] ([facility]) [address], [place], [address], 08/23/2024 09:39:03 09/24/19 25 09/23/2024 imagi ng/di agnos tic resul t No observ ation record ed. [facility] [address], [place], [address], 09/23/2024 18:48:47 01/28/2001/23/2025 US, thyro id No observ ation record ed. [facility] [address], [place], [address], 01/27/2025 10:03:54 Result Notes None recorded. Problems Name Problem SNOMED Code Status Onset Date Resolution Date Notes Provider Name and Address Organization Details Recorded Time Acute sinusitis 17244573 Active 2021 Not Available [facility] 3 00:48:21 Vitamin D deficiency 82380154 Active 2022 Krist[facility] [employer] 3 09:40:41 Asthma 511103389 Active 2022 Zuleika slater MD [address], [place], [address] , [employer] 3 10:32:48 Thrombocytope tino disorder 330990267 Active 2022 Zuleika slater MD [address], [place], [address] , [employer] 3 10:32:57 Hyperlipidemi a 22551119 Active 2022 Zuleika slater MD [address], [place], [address] , [employer] 3 10:33:00 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 Active 2022 Zuleika slater MD [address] [facility], [facility] [address], [place], [address] , [facility] [employer] [facility] [employer] [facility] 3 10:33:06 Anemia 398211451 Active 2022 Zuleika slater MD [address] [facility], [facility] [address], [place], [address] , [employer] [facility] 3 11:04:29 Hypothyroidis m 05047677 Active 2023 Zuleika slater MD [address] [facility], [facility] [address], [place], [address] , [employer] [facility] [employer] 4 10:38:35 Cough 72133641 Active 2024 Dmitriy Fitzpatrick CMA null, [employer] [facility] [employer] [facility] 5 15:21:49 Allergic reaction 790100806 Active 2024 Zuleika slater MD [address] [facility], [facility] [address], [place], [address] , [employer] [facility] [employer] [facility] 5 18:39:17 Productive cough 79942978 Active 2024 CARROL Gagnon null, [place] [employer] [facility] [employer] 5 14:14:01 Problem Notes None recorded. Procedures Surgical History Date Name Laterality Status Provider Name and Address Organization Details Recorded Time procedure on wrist completed Not Available [facility] 09/13/2022 00:43:48 Imaging Results None recorded. Procedure Notes None recorded. Medical Equipment None Reported. Allergies Allergen ID Allergen Name Allergen Category Reaction Reaction Severity Criticality Documentation Date Start Date Code Code System Note Provider Name and Address Organization Details Recorded Time 602 titanium Not available Not available Not available Not available 09/13/2022 81854 47 RxNorm Not Available [facility] 3 00:53:36 603 Compazine medicatio n Not available Not available Not available 09/13/2022 94753 6 RxNorm Not Available [facility] 3 00:53:36 38096 Product containin g hydrogen/ potassium adenosine triphosph atase enzyme system inhibitor (product) medicatio n Not available Not available Not available 09/22/2024 75601 5006 SNOMED Zuleika alvarez MD [address] [facility], [address], [place], [address], [employer] 5 17:49:21 06750 Pepcid medicatio n Not available Not available Not available 09/22/2024 18608 8 RxNorm Zuleika alvarez MD [address], [address], [place], [address], [employer] 17:49:29 Medications Name Sig Start Date Stop Date Status Note LastModified by Organization Details LastModified Time amoxicill in 500 mg capsule TK 1 C PO Q 8 H active Not Available Not Available No t Available clindamyc in HCl 300 mg capsule [...] PUFFS BY MOUTH EVERY 4 HOURS NEEDED active Not Available Not Available No t Available fluticaso ne propionat e 50 mcg/actua tion nasal spray,deborah pension SHAKE LQ AND U 1 SPR IEN QD 01/12 completed Not Available Not Available Not Available loratadin e 10 mg tablet TK 1 T PO QD PRN 04/19 completed Not Available Not Available Not Available amoxicill in 875 mg-potass ium clavulana te 125 mg tablet Take 1 tablet twice a day by oral route with meal(s) for 7 days. 02/26 completed Not Available Not Available Not Available [...] 90 mcg-80 mcg/actua tion HFA aerosol inhaler INHALE 2 PUFFS BY MOUTH FOUR TIMES DAILY NEEDED active Not Available Not Available No t Available Vitals Date Recorded Body height Body mass index (BMI) Body weight Body temperature Heart rate Oxygen saturation Oxygen saturation in Arterial blood by Pulse oximetry Systolic And Diastolic Provider Name and Address Organization Details Last Updated DateTime 157.48 cm 26.5 kg/m2 72767.8 9 g 97.6 [degF] 74 /min 98 % 98 % 118/72 mm[Hg] Blessing Galvez MA [employer] [facility] [employer] 5 11:37:44 Date Recorded Body height Body mass index (BMI) Body weight Body temperature Oxygen saturation Oxygen saturation in Arterial blood by Pulse oximetry Heart rate Systolic And Diastolic Provider Name and Address Organization Details Last Updated DateTime 5 157.48 cm 26.7 kg/m2 81411.4 9 g 97.7 [degF] 97 % 97 % 81 /min 120/60 mm[Hg] CARROL Black [employer] [facility] [employer] 5 16:39:22 Date Recorded Body height Body mass index (BMI) Body weight Body temperature Heart rate Oxygen saturation Oxygen saturation in Arterial blood by Pulse oximetry Pain severity - 0-10 verbal numeric rating [Score] - Reported Systolic And Diastolic Provider Name and Address Organization Details Last Updated DateTime 5 157.48 cm 25.1 kg/m2 38549.1 5 g 98.2 [degF] 70 /min 97 % 97 % 0 128/68 mm[Hg] Mary Kate Lugo MA [employer] 5 10:37:30 Date Recorded Body height Body mass index (BMI) Body weight Body temperature Systolic And Diastolic Provider Name and Address Organization Details Last Updated DateTime 05/28/2024 157.48 cm 27.4 kg/m2 05822.8 6 g 97.5 [degF] 122/60 mm[Hg] CARROL Gagnon [place] - [facility] 4 10:36:16 Social History Question Answer Notes [...] COVID-19 While That Case Was Ill? No [id number] Information not available 09/13/2022 In The 14 Days Before Symptom Onset, Have You Had Close Contact With A Person Who Is Under Investigation For COVID-19 While That Person Was Ill? No [id number] Information not available 09/13/2022 Are You Deaf Or Do You Have Serious Difficulty Hearing? No Information not available 01/31/2023 What Type Of Diet Are You Following? REGULAR [id number] Information not available 09/13/2022 Have There Been Any Changes To Your Family Or Social Situation? No Information no t available 01/12/2025 What Is The Fluoride Status Of Your Home? Unknown Information not available 01/31/2023 Are There Any Guns Present In Your Home? No Information not available 01/31/2023 Do You Use Insect Repellent Routinely? No Information not available 01/12/2025 Where Do You Live? 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 Yes Information not available 01/31/2023 What Was The Date Of Your Most Recent Tobacco Screening? 01/12/2025 Information not available 01/12/2025 Do You Have Any Pets? Yes Information not available 01/31/2023 What Is Your Relationship Status? [id number] Information not available 09/13/2022 Do You Use [...] How Much Tobacco Do You Smoke? No [id number].[id number] 7316 Information not available 09/13/2022 Do You Use Sunscreen Routinely? No Information not available 01/12/2025 Has Tobacco Cessation Counseling Been Provided? No N/a Information not available 01/31/2023 How Many Years Have You Smoked Tobacco? 0 [id number].[id number] Information not available 09/13/2022 Have You Recently Traveled Abroad? No Information not available 01/31/2023 Do You Have Difficulty Walking Or Climbing Stairs? No Information not available 01/31/2023 Do You Have Any Dietary Restrictions? No MIGRATION.351932 6245 Information not available 09/13/2022 Sex: Female Functional Status Question Answer Note LastModified by Organizat ion Details LastModified Time Do you use any illicit or recreational drugs? No MIGRATION.[id number] Information not available 09/13/2022 Do you or have you ever used any other forms of tobacco or nicotine? No Information not available 01/31/2023 What is your level of alcohol consumption? None [id number].[id number] Information not available 09/13/2022 Do you or have you ever used smokeless tobacco? Never used smokeless tobacco MIGRATION.195483 8563 Information not available 09/13/2022 Are you currently employed? No Information not available 01/31/2023 Do you have transportation difficulties? No Information not available 01/31/2023 Are you able to walk independently without assistance or assistive devices? [employer] Information not available 01/31/2023 Do you have difficulty doing errands alone? No Information not available 01/31/2023 Are you able to care for yourself independently? Yes Information not available 01/31/2023 Do you have difficulty dressing, bathing, grooming, or toileting? No Information not available 01/31/2023 Do you or have you ever used e-cigarettes or vape? Never used electronic cigarettes MIGRATION.299247 2111 Information not available 09/13/2022 What is your exercise level? None MIGRATION.[id number] 0638 Information not available 09/13/2022 Mental Status Question Answer Note LastModified by Organizat ion Details LastModified Time Do you feel stressed (tense, restless, nervous, or anxious, or unable to sleep at night)? [id number] Information not available 01/31/2023 Do you have difficulty concentrating, remembering or making decisions? No Information no t available 01/31/2023 Family History Relationship Description Onset Age of this Age Resolved Age Notes LastModified by Organization Details LastModified Time Father Diabetes mellitus [id number] Not available 09/13/2022 00:43:54 Father Cardiovascul ar injury [id number].394 [id number] Not available 09/13/2022 00:43:54 Mother History of hypertension [id number].[id number] Not available 09/13/2022 00:43:54 Medical History Condition [...] ARTERY DISEASE (CAD) N ADDICTION CONCERNS N Impotence N ENDOMETRIOSIS N USE OF BLOOD THINNERS N SKIN [...] APNEA N CHICKENPOX N INFECTIOUS DISEASE N PROSTATE N HEART [...] N ALZHEIMER'S DISEASE N Brain Problems N DEMENTIA N HERPES N SEIZURES/EPILEPSY N HEADACHES/MIGRAINES N VASCULAR DISEASE N PACEMAKER N Blood Disorder N DIZZINESS N HEART DISEASE/HEART PROBLEMS N KIDNEY DISEASE N MULTIPLE SCLEROSIS N CANCER: SPECIFY N CARDIAC ARRHYTHMIA N ATRIAL FIBRILLATION N Gall Stones N [...] virus, quadrivalent, preservative 8 completed Not Available [facility] 09/13/2022 00:53:31 Influenza, high-dose, quadrivalent, PF 0 completed Not Available [facility] 09/13/2022 00:53:31 Pneumococcal conjugate PCV 13 0 completed PAULINO Mendoza [facility] 01/16/2024 14:11:08 Influenza, high-dose, quadrivalent, PF 2 completed PAULINO Mendoza, [facility] 01/16/2024 14:11:08 COVID-19, mRNA, LNP-S, PF, 30 mcg/0.3 mL dose 1 completed PAULINO Mendoza, [facility] 01/16/2024 14:11:08 COVID-19, mRNA, LNP-S, PF, 30 mcg/0.3 mL dose 1 completed PAULINO Mendoza [facility] 01/16/2024 14:11:08 COVID-19, mRNA, LNP-S, PF, 30 mcg/0.3 mL dose 1 completed Jack Linton LPN null, [facility] [employer] [facility] 01/16/2024 14:11:08 Influenza, high-dose, trivalent, PF 4 completed Zuleika Denney MD [address] [facility], [facility] [address], [place], [address], [facility] [employer] [facility] [employer] [facility] 05/28/2024 18:35:01 Past Encounters Encounter ID Performer Location Encounter Start Date Encounter Closed Date Diagnosis/Indication Diagnosis SNOMED-CT Code Diagnosis ICD10 Code Diagnosis IMO Codes Diagnosis Note [id number] Zuleika slater MD [facility] Internal Med [address] [place] [address] 09/13/2020 00:00:00 09/13/2020 16:55:42 [id number] Zuleika slater MD [facility] Internal Med [address] [place] [address] 02/09/2021 00:00:00 02/09/2021 14:28:58 [id number] Zuleika slater MD [facility] Internal [address] [place] [address] 01/31/2023 10:24:09 01/31/2023 11:38:25 Screening - NAD 003122235 Z13.9 C-scope: Done last year, in [facility] m: 03/11/19:Scott Szymanski Early 01/05/17, C-scope: To [...] her understand ing of the above Asthma 229712584 J45.90 9 On symbicort, renewed 01/31/2023 On singulairO n albuterol Does well Thrombocyt openic disorder 983747421 D69.6 Get labs and then will decide if she wants to see Dr Dover again Hyperlipidemia 57358036 E78.5 Get back on rosuvastat in 40mg dailyGet labs Vitamin D deficiency 347 62832 E55.9 Screening mammography 24 568760 Z12.31 Ordered 09/13/2020 , 02/09/2021 , but she does not want to do thisAdvise d on SBE and notify if any symptoms occur or change Anemia 868980240 D64.9 Does wellGet labs [id number] Zuleika slater MD [facility] Internal Med [place] [address] [place] [address] , [facility] [place] [address] 09/05/2023 10:11:46 09/05/2023 11:10:04 Asthma 370817830 J45.909 On symbicort, renewed 01/31/2023 On singulairO n albuterol will d/cStart on airsupra Does well Hyperlipidemia 43431910 E78.5 Get back on rosuvastat in 40mg dailyGet labs Screening - NAD 32269819 3 Z13.9 C-scope: Done last year, in [facility] m: 03/11/19:D r Nessa Early 01/05/17, C-scope: [...] ing of the above Thrombocyt openic disorder 065864221 D69.6 Get labs and then will decide if she wants to see Dr Dover again Vitamin D deficiency 347 56304 E55.9 Screening mammography 24 127625 Z12.31 Ordered 09/13/2020 , 02/09/2021 , but she does not want to do thisAdvise d on SBE and notify if any symptoms occur or change Anemia 671303312 D64.9 Does wellGet labs Hypothyroidism 75142559 E03.9 Get labsGet US thyroid Screening for malignant neoplasm of colon 058752533 Z12.11 Screening for osteoporosis 417042097 Z13.925 [id number] Zuleika slater MD [facility] [place] [address] [facility] y , [facility] [place] [address] 01/23/2024 10:23:14 01/23/2024 11:39:09 Asthma 944013340 J45.909 On symbicort, renewed 01/31/2023 On singulairO n albuterol will d/cStart on airsupra Does well Hyperlipidemia 14191825 E78.5 On rosuvastat in 40mg dailyGet labs Screening - NAD 66856387 3 Z13.9 C-scope: Done last year, in [facility] m: 03/11/19:D r Nessa Early 01/05/17, C-scope: [...] ing of the above Thrombocyt openic disorder 177680485 D69.6 Get labs and then will decide if she wants to see Dr Dover again Vitamin D deficiency 347 04859 E55.9 Screening mammography 24 608509 Z12.31 Ordered 09/13/2020 , 02/09/2021 , but she does not want to do thisAdvise d on SBE and notify if any symptoms occur or change Anemia 898612465 D64.9 Does wellGet labs Hypothyroidism 69618828 E03.9 Get labsGet US thyroid Screening for malignant neoplasm of colon 803925937 Z12.11 Screening for osteoporosis 230166880 Z13.401 [id number] Zuleika slater MD [facility] Primary Care [facility] [address] [facility] [address] [place] [address] 05/28/2024 10:07:23 05/28/2024 11:13:16 Asthma 283966430 J45.909 On symbicort, renewed 01/31/2023 On singulairO n albuterol Does well Hyperlipidemia 07548607 E78.5 On rosuvastat in 40mg dailyGet labs Screening - NAD 01088843 3 Z13.9 C-scope: Done last year, in [facility] m: 03/11/19:D r Nessa Early 01/05/17, C-scope: [...] ing of the above Thrombocyt openic disorder 475307329 D69.[address] Dover again Vitamin D deficiency 347 25368 E55.9 Screening mammography 24 044153 Z12.31 Ordered 09/13/2020 , 02/09/2021 , but she does not want to do thisAdvise d on SBE and notify if any symptoms occur or change Anemia 007192196 D64.9 Does wellGet labs Hypothyroidism 48989458 E03.9 Get labsGet US thyroid Screening for malignant neoplasm of colon 683585763 Z12.11 Screening for osteoporosis 135778116 Z13.820 Administra tion of influenza vaccine 38648077 Z23 [id number] Zuleika slater MD [facility] Primary Care [facility] [address] [facility] [address] [place] [address] 08/21/2024 11:20:58 08/21/2024 11:50:26 [id number] Zuleika slater MD [facility] Primary Care Jonathan liz [address] [place] [address] 08/25/2024 11:22:01 08/25/2024 12:23:44 Asthma 444348781 J45.909 On symbicort, renewed 01/31/2023 On singulairO n albuterol Does well Hyperlipidemia 25943406 E78.5 On rosuvastat in 40mg daily, has been not complaint with taking her statinGet labs Screening - NAD 87812956 3 Z13.9 C-scope: Done last year, in [facility] m: 03/11/19:D r Nessa Early 01/05/17, C-scope: To be done again in 7 yearsIs to get her C-scope 09/17/2024 , as per her history 08/25/2024 PAP: Did see Dr Robles and does well now Mammogram: Not doing this 08/25/2024 , do SBE DEXA: 09/05/2019 : Osteopenia , does ca and vit d Get yearly flu shot 04/19/2020 Td 2010 as per [facility] TD PCV #13 04/19/2020 Can do shingles vaccineGet COVID 19 vaccine doneDo RSV vaccine RTC in 4 monthsGet labsER if worseShe and her did verbalize her understand ing of the above Thrombocyt openic disorder 907471538 D69.[address] Dover again Vitamin D deficiency 347 97630 E55.9 Screening mammography 24 730711 Z12.31 Ordered 09/13/2020 , 02/09/2021 , but she does not want to do thisAdvise d on SBE and notify if any symptoms occur or change Anemia 036535470 D64.9 Does wellGet labs Hypothyroidism 14943816 E03.9 Get labsGet US thyroid Screening for malignant neoplasm of colon 389906689 Z12.11 Screening for osteoporosis 449095637 Z13.459 [id number] [facility] Jonathan liz [address] [place] [address] 09/22/2024 16:21:42 09/22/2024 17:47:05 Allergic reaction 256708252 T78.40XA D/t pepcid given by the Michelle does well, mild redness seen, advised to take OTC benadryl, notify if worse, ER if worse, she is very appreciati ve to this plan of care [id number] Zuleika slater MD [facility] Primary Care Jonathan liz [address] [facility] [address] [place] [address] 01/12/2025 10:28:17 01/12/2025 11:38:17 Allergic reaction 191038777 T78.40XA D/t pepcid given by the Michelle does well, mild redness seen, advised to take OTC benadryl, notify if worse, ER if worse, she is very appreciati ve to this plan of care Asthma 933309094 J45.90 9 On symbicortO n singulairO n albuterol, wants to get on airsupra Does well Hyperlipidemia 12262921 E78.5 On rosuvastat in 40mg daily, has been not complaint with taking her statinGet labs Screening - NAD 36002539 3 Z13.9 C-scope: Done last year, in [facility] Early 01/05/17, C-scope: To be done again [...] ing of the above Thrombocyt openic disorder 895542700 D69.6 Dr Dover 10/02/2024 , f/u in one year Vitamin D deficiency 347 95319 E55.9 Screening mammography 24 426247 Z12.31 Ordered 09/13/2020 , 02/09/2021 , but she does not want to do thisAdvise d on SBE and notify if any symptoms occur or change Anemia 649497651 D64.9 Does wellGet labs Hypothyroidism 98718485 E03.9 Get labsGet US thyroid Postmenopausal state 764 00969 Z78.0 607092 Health Concerns Section Related Observation LastModified by Organization Detai ls LastModified Time None Recorded Concern Status LastModified by Organization Details LastModified Time None Recorded Advance Directives Directive N: Payers Insurance Date Sequence Insurance Name Policy Number Policy Liu Covered Member ID Liu Member ID Guarantor Name 12/21/2024 1 [place] Eve Mariel Malone [id number] Eve Malone 01/14/2025 2 AARP (MEDICARE SUPPLEMENT) Eve Malone [id number] Eve Malone 08/21/[address] [facility] ([facility]) [id number] Eve Mariel Malone [id number] Eve Malone Notes Date Note Type Note Provider Name [...] here with her Zuleika Denney MD [address] [facility], [address], [place], [address], [facility] [employer] [facility] 05/28/2024 18:36:10 08/25/2024 text/html OV 02/26/19:Here [...] her 's medical issues Zuleika Denney MD [address] [place] [address], [address], [place], [address], [place] [facility] 08/25/2024 14:15:19 09/22/2024 text/html OV 02/26/19:Here to [...] breathing or swallowing Zuleika Denney MD [address] [facility], [facility] [address], [place], [address], [facility] [employer] 09/22/2024 18:40:37 01/12/2025 text/html OV 02/26/19:Here to [...] here with her Zuleika Denney MD [address], [facility] [address], [place], [address], [place] [facility] 01/12/2025 18:57:30 OBGyn Episode No OBEpisode recorded.
--- NOTE | 2025-04-21 11:10 | PC.NURSE ---
ALYSSA Gonzalez at bedside talking with pt. and pt. family.
--- OUTSIDE RECORDS SUMMARY | 2025-04-21 12:06 | XMS_ITS | Encounter Summary ---
Author Organization [facility] Address 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 Gender Identity Not on file Sexual Orientation Not on file documented as of this encounter Plan of Treatment Upcoming Encounters Date Type Department Care Team (Late st Contact Info) Description 10/06/2025 10:15 AM CDT Office Visit [facility] ([facility] Oncology and Hematology - [place] [address] [place] [address] [facility] [address] [place] [address] [place] [address] [place] [address] [address] [place] [address] documented as of this encounter Visit Diagnoses Diagnosis Other screening mammogram- Primary documented in this encounter Care Teams Dental Laboratory Technology Teacher Relationship Specialty Start Date End Date Zuleika Denney MD PCP - General Internal Medicine 09/01/19 documented as of this encounter
--- OUTSIDE RECORDS SUMMARY | 2025-04-21 12:06 | XMS_ITS | Encounter Summary ---
Author Organization [facility] Address 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 Oncology and Hematology - [place] [address] [facility] [address] [place] [address] [place] [address] [place] [address] [address] [place] [address] documented as of this encounter Visit Diagnoses Diagnosis Abnormal mammogram, unspecified- Primary documented in this encounter Care Teams Plumbing Assembler Relationship Specialty Start Date End Date Zuleika Denney MD PCP - General Internal Medicine 09/01/19 documented as of this encounter
--- OUTSIDE RECORDS SUMMARY | 2025-04-21 12:06 | XMS_ITS | Clinical Summary ---
Author Organization [facility] Address [address] [facility] [place] [address] Care Team Providers Care Entry Engineer Name Role Phone Unavailable Primary Care Provider Unavailabl e Source Comments [facility],non-owned Affiliates and Associated Physician Practices is amultiple site organization consisting of ambulatory clinics and hospital sitesin [place], [place], [place] and [place]. This disclosure is being madepursuant to the Care Everywhere program and may not contain all information available regarding this patient. Last updated 18.[facility] [employer] Allergies No known active allergies Medications * [...] on file Legal Sex Female 8:37 AM SOUND TECHNICIAN Gender Identity Not on file Sexual Orientation Not on file Last Filed Vital Signs Vital Sign Reading Time Taken Comments Blood Pressure 122/68 06/05/2020 11:47 AM SOUND TECHNICIAN Pulse 78 06/05/2020 11:47 AM SOUND TECHNICIAN Temperature 36.8 C (98.3 F) 06/05/2020 11:47 AM SOUND TECHNICIAN Respiratory Rate 16 06/05/2020 11:47 AM SOUND TECHNICIAN Oxygen Saturation 95% 06/05/2020 11:47 AM SOUND TECHNICIAN Inhaled Oxygen Concentration - - Weight 59 kg (130 lb) 06/05/2020 11:47 AM SOUND TECHNICIAN Height 157.5 cm (5' 2) 06/05/2020 11:47 AM SOUND TECHNICIAN Body Mass Index 23.78 06/05/2020 11:47 AM SOUND TECHNICIAN Plan of Treatment Health Maintenance Due Date [...] patient's age to complete this topic Insurance [facility]
--- OUTSIDE RECORDS SUMMARY | 2025-04-21 12:06 | XMS_ITS | Clinical Summary ---
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 Gender Identity Not on file Sexual Orientation [...] 157.5 cm (5' 2) 09/08/2024 1:24 PM CATALYST OPERATOR CHIEF Body Mass Index 26.41 09/08/2024 1:24 PM CATALYST OPERATOR CHIEF Plan of Treatment Upcoming Encounters Date Type Department Care Team (Late st Contact Info) Description 10/06/2025 10:15 AM CDT Office Visit [facility] Oncology and Hematology - [place] [address] [facility] [address] [place] [address] Miki Dover MD [address] [facility] [address] [place] [address] Health Maintenance Due Date Last [...] MEDICARE PART A AND B Care Teams Assembly Loader Relationship Specialty Start Date End Date Zuleika Denney MD PCP - General Internal Medicine 09/01/19
--- OUTSIDE RECORDS SUMMARY | 2025-04-21 12:06 | XMS_ITS | Clinical Summary ---
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
== END 2025-04-21 11:28 | disposition home or self-care (01) ==
PROVIDERS: Emergency Provider Physician Assistant; PCP Internal Medicine
DX: L03.114 Cellulitis of left upper limb (principal); S50.862A Insect bite (nonvenomous) of left forearm, initial encounter; W57.XXXA Bitten or stung by nonvenomous insect and other nonvenomous arthropods, initial encounter
CPT/HCPCS: 99283